=== PATIENT | female | born 1955 | race Caucasian/White ===

== ENCOUNTER 2018-01-20 01:40 | Outpatient (CLI) | payer MEDICAID, SELFPAY ==
--- NOTE | 2018-01-20 12:59 | DI.RAD_ITS ---
SYMPTOM/DIAGNOSIS: COUGH, R05 PA AND LATERAL CHEST: Comparison is made with 04/07/15. Heart size and pulmonary vasculature are within normal limits. No focal consolidating infiltrates are seen. No effusions or pneumothoraces are identified. There are mild degenerative changes seen in the spine. IMPRESSION: No acute pulmonary process.
== END 2018-01-20 02:00 ==
PROVIDERS: PCP Nurse Practitioner Family; Visit Provider Nurse Practitioner Family
DX: R05 Cough (principal)
CPT/HCPCS: 71046

== ENCOUNTER 2018-03-14 09:55 | Outpatient (REF) | payer MEDICAID, SELFPAY ==
[2018-03-16 13:17] LABS: Helicobacter pylori Ag, Feces Positive (NEGAT)
== END 2018-03-14 10:15 ==
LOC: NCHCN 09:55
PROVIDERS: PCP Nurse Practitioner Family; Visit Provider Nurse Practitioner Family
DX: Z87.19 Personal history of other diseases of the digestive system (principal)
CPT/HCPCS: 87338

== ENCOUNTER 2018-05-03 16:38 | Outpatient (REF) | payer MEDICAID, SELFPAY ==
[2018-05-11 14:05] LABS: Helicobacter pylori Ag, Feces Negative (NEGAT)
== END 2018-05-03 16:58 ==
LOC: NCHCN 16:38
PROVIDERS: PCP Nurse Practitioner Family; Visit Provider Nurse Practitioner Family
DX: B96.81 Helicobacter pylori [H. pylori] as the cause of diseases classified elsewhere (principal)
CPT/HCPCS: 87338

== ENCOUNTER 2018-06-30 07:34 | Outpatient (REF) | payer MEDICAID, SELFPAY ==
[2018-06-30 13:07] LABS: ALT 24 U/L (12-78); AST 18 U/L (15-37); Albumin 3.7 g/dL (3.4-5.0); Alkaline Phosphatase 157 U/L (46-116); BUN 7 mg/dL (7-18); Bilirubin, Total 0.4 mg/dL (0.2-1.0); CREATININE 0.96 mg/dL (0.55-1.02); Chloride 99 mmol/L (98-107); Cholesterol 183 mg/dL (50-200); Glucose 121 mg/dL (70-100); HDL Cholesterol 48 mg/dL (40-60); LDL CHOLESTEROL 113 mg/dL (<100); Potassium 4.8 mmol/L (3.5-5.1); Sodium 138 mmol/L (136-145); Total Protein 7.6 g/dL (6.4-8.2); Triglyceride 100 mg/dL (30-150)
== END 2018-06-30 07:54 ==
LOC: NCHCN 07:34
PROVIDERS: PCP Nurse Practitioner Family; Visit Provider Nurse Practitioner Family
DX: I10 Essential (primary) hypertension (principal); E78.5 Hyperlipidemia, unspecified
CPT/HCPCS: 80053; 80061; 83721

== ENCOUNTER 2018-08-25 21:16 | Emergency (ER) | payer MEDICAID, SELFPAY ==
[2018-08-25 21:19] VITALS: BP 149/94; PULSE 69; RESP 15; TEMP 36.6; O2SAT 95
--- NOTE | 2018-08-25 21:40 | DI.RAD_ITS ---
SYMPTOM/DIAGNOSIS: TRAUMA, ROTATIONAL INJURY, PAIN RIGHT FOOT: Three views. No acute or healing fracture or dislocation is present. There is soft tissue swelling of the foot. No radiopaque foreign bodies are present. IMPRESSION: No evidence of an acute or healing fracture or dislocation. RIGHT ANKLE: Three views. No acute fracture or dislocation is identified. There is a small calcaneal spur present. There is a tiny, well corticated osseous fragment seen at the talonavicular joint. A small spur is seen at the dorsal aspect of the distal talus. No radiopaque foreign bodies are seen in the soft tissues. IMPRESSION: No acute or healing fracture or dislocation.
--- NOTE | 2018-08-25 21:50 | ED.GENADUL_ITS ---
Discharge Plan Disposition Patient Disposition: HOME Condition: Good Discharge Details Chief Complaint: Orthopedic Clinical Impression: Ankle sprain, Ankle impingement syndrome Primary Care Provider: Concepción Smith ED Provider: Li Melgar Home Meds and New Rx's Prescriptions: Continued lisinopril [Prinivil] 20 MG tablet 20 mg PO DAILY Qty: 30 RF: 11 oxybutynin chloride 5 MG tablet 5 mg PO TID Qty: 90 RF: 5 esomeprazole magnesium 20 MG capsule,delayed release(DR/EC) 40 mg PO DAILY Qty: 90 RF: 2 epinephrine [EpiPen] 0.3 MG/0.3 ML auto-injector 0.3 mg IM PRN PRN (Reason: Anaphylaxis) RF: 0 nitroglycerin 0.4 MG tablet, sublingual 0.4 mg Sublingual DIRECTED Qty: 25 RF: 0 albuterol sulfate [Proventil HFA] 6.7 GM HFA aerosol inhaler 2 puff Inhalation Q4H PRN PRNQty: 1 RF: 0 Discharge Instructions Instructions: Ankle Sprain (ED) Additional Instructions: Encourage rest, ice, elevation. Tylenol and/or ibuprofen as needed for discomfort. Please continue with ankle brace while pain persists. Please follow-up with primary care in the next 2 weeks for reevaluation. Please call physical therapy to schedule appointment, referral is attached. If you develop fever/chills, redness of the skin, increased pain or other new/worsening symptoms please seek care urgently once again Stand Alone Forms: Physical Therapy Referral Referrals: Concepción Smith [Primary Care Provider] - Medical Decision Making Patient is a 63 year old female, accompanied by , with c/c of right ankle and foot pain x 2 weeks. States it began after rolling it while walking on a pallet. Pain has remained the same since. Was seen by PCP yesterday and advised likely sprain. Patient states she rolls her ankles frequently. No fevers/chills, she appears nontoxic, no erythema/warmth or findings suggestive of infectious source. Posterior calf normal, does not appear consistent with DVT. No pain over the proximal 5th metatarsal Pain maximal over drew lateral malleolus. Achilles intact without tenderness. Plan to obtain XR to evaluate for bony abnormality. Patient ambulated into department without assistance. Foot XR reviewed by radiologist: FINDINGS: Bones/joints: Bone mineralization is age-appropriate. There is no evidence of fracture. No evidence of dislocation. There is a noninflamed plantar enthesophyte. The joint spaces are adequately preserved; no significant degenerative narrowing and no bony erosion seen. Soft tissues: No radiopaque foreign body present. There is soft tissue swelling present. IMPRESSION: 1. No acute osseous abnormality. 2. Soft tissue swelling only. Ankle XR: FINDINGS: Bones/joints: Bone mineralization is age-appropriate. There is no evidence of fracture. No evidence of dislocation. There is a noninflamed plantar enthesophyte. The joint spaces are adequately preserved; no significant degenerative narrowing and no bony erosion seen. There is an osteophyte seen at the dorsal aspect of the tarsal navicular region consider anterior ankle impingement syndrome. Soft tissues: No radiopaque foreign body present. There is moderate to severe soft tissue swelling present. IMPRESSION: 1. No acute osseous abnormality. 2. Soft tissue swelling only. 3. 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 She feels that this finding may be source of some of her chronic ankle pain. Also advised that her acute injury with associated swelling is likely contributing. Place in lace up brace. Advised PT. Encouraged close f/u with PCP. We discussed new/wrosening symptoms and when to seek care urgently once again. All questions and concerns were addressed, she is in [facility] this plan. HPI General Mode of arrival: ambulatory . Date/Time Provider Initiated Documentation: 08/25/18 21:31 . Limitations to Documentation: no limitations . Information obtained by: patient, family (accompanied by ) and RN notes reviewed . History of Present Illness 63 year old F presents to the emergency department with the chief complaint of right ankle and foot pain, described as severe, with intensity rated at 9. Quality is described as aching, and is localized to the right and lower extremity. Patient reports no radiation. Patient started experiencing this week(s) (2) Immobilization improves symptom(s), Movement worsens symptoms . Patient notes no other symptoms.; denies chest pain, diaphoresis, fever/chills, malaise, rash and shortness of breath. Patient did receive the following treatments prior to arrival, none Related Data Home Medications Medication Instructions Recorded Confirmed epinephrine [EpiPen] 0.3 mg IM PRN PRN 03/23/13 10/14/17 nitroglycerin 0.4 mg SUBLINGUAL DIRECTED #25 04/08/15 11/27/16 tab.subl albuterol sulfate [Proventil HFA] 2 puff INHALATION Q4H PRN PRN #1 07/07/15 11/27/16 [email or web address] lisinopril [Prinivil] 20 mg PO DAILY #30 tab-cap 02/25/16 esomeprazole magnesium 40 mg PO DAILY #90 tab-cap 02/26/16 oxybutynin chloride 5 mg PO TID #90 tab-cap 02/26/16 Previous Rx's Medication Instructions Recorded nitroglycerin 0.4 mg SUBLINGUAL DIRECTED #25 04/08/15 tab.subl albuterol sulfate [Proventil HFA] 2 puff INHALATION Q4H PRN PRN #1 07/07/15 [email or web address] Allergies Allergy/AdvReac Type Severity Reaction Status Date / Time Penicillins Allergy Intermediate seizure Unverified 08/25/18 21:28 codeine Allergy Mild Hives Unverified 08/25/18 21:28 diphenhydramine HCl Allergy Mild Swelling/Ed Unverified 08/25/18 21:28 [From Benadryl] rosa levofloxacin Allergy Mild Skin Rash Unverified 08/25/18 21:28 diclofenac AdvReac Intermediate Wheezing, Unverified 08/25/18 21:28 stomach upset and brusing cantalope Allergy Intermediate can't Uncoded 08/25/18 21:28 breath chicken dander/feathers Allergy Intermediate can't Uncoded 08/25/18 21:28 breath mckenna Allergy Intermediate sob Uncoded 08/25/18 21:28 General Stated Complaint: Orthopedic DERRICK: 4 Review of Systems Constitutional Reports as per HPI, Denies chills, Denies fever(s), Denies headache(s) and Denies weakness ENT Denies headache(s) Cardiovascular Reports as per HPI Respiratory Reports as per HPI and Denies cough Musculoskeletal Reports as per HPI and Denies tingling Integumentary/Breasts Reports as per HPI, Denies rash and Denies wounds Neurologic Reports as per HPI, Denies headache(s), Denies tingling, Denies paresthesias and Denies weakness FOR[facility] Surgical History Appendectomy HYSTERECTOMY KNEE SURGERY LEFT HEART CATH (05/08/12) Left wrist surgery (04/14/16) Open Carpal Tunnel release Tonsillectomy and adenoidectomy Family History Mother Personal history of malignant neoplasm Stroke Father Diabetes Personal history of malignant neoplasm Sister Diabetes Personal history of malignant neoplasm Heart disease Hyperlipidemia Stroke Sister Diabetes Brother Diabetes Alcohol abuse Personal history of malignant neoplasm Hyperlipidemia Stroke Brother No problems noted. Social History Smoking/Tobacco Use Status: Current every day Alcohol Intake: never Drug use: Never Substance use type: does not use Do you feel safe in your relationship?: Yes Exam Const General: cooperative, healthy appearing, comfortable, no acute distress, well developed and well groomed Nutritional Appearance: well nourished and overweight Orientation: alert and awake Resp Effort & Inspection: normal respiratory effort, able to speak in complete sentences and no respiratory distress Cardio Rate: regular rate Rhythm: regular rhythm Skin General skin exam: no rashes or lesions noted Lesions: no lesions Rashes: no rashes Trauma: no lacerations or abrasions Neuro General: alert and awake Cognition: normal cognition Speech: speech normal Gait: antalgic Motor: muscle tone normal throughout Sensory Exam: no sensory deficits noted Extrem Right lower extremity: full ROM (pain with dorsiflexion and plantarflexion), normal capillary refill, edema Details: non-pitting (bilateral LE, R>L), knee Details: normal to inspection (s/p TKA, incision healed well) and normal ROM; no tenderness and no swelling, lower leg Details: normal to inspection and non- pitting edema; no erythema, no tenderness, no localized swelling, no palpable cords, no pitting edema, no abrasions, no lacerations, no ecchymosis, no deformity and no unusual warmth, ankle Details: tenderness Location: of the lateral malleolus, of the anterior talofibular ligament and anterolaterally; not of the medial malleolus and not of the achilles tendon, swelling Details: diffusely, edema Details: non-pitting and normal ROM; no unusual warmth, no abrasions, no lacerations, no ecchymosis, no crepitus and achilles tendon exam normal and foot Details: normal capillary refill, tenderness Location: of the dorsal foot (diffuse, worse over the 3&4 metatarsal), toes with normal ROM, edema Location: of the dorsal foot, vascular exam Details: dorsalis pedis pulse present and motor-sensory exam Details: light-touch normal; no unusual warmth, no abrasion, no laceration, no ecchymosis and no puncture wound Psych Appearance: grossly normal and well kempt Mental Status: mental status grossly normal Speech and Movement: speech and movement normal Course Vital Signs Temperature 36.6 C 08/25/18 21:19 Pulse 69 08/25/18 21:19 Respiratory Rate 15 08/25/18 21:19 Blood Pressure 149/94 H 08/25/18 21:19 Pulse Oximetry 95 08/25/18 21:19 Temperature 36.6 C 08/25/18 21:19 Temperature Source Skin 08/25/18 21:19 Pulse 69 08/25/18 21:19 Respiratory Rate 15 08/25/18 21:19 Respiratory Effort Non-Labored 08/25/18 21:23 Blood Pressure 149/94 H 08/25/18 21:19 Pulse Oximetry 95 08/25/18 21:19 Oxygen Delivery Method Room Air 08/25/18 21:19 Oxygen Flow Rate 0 08/25/18 21:19 Pain Level 9 08/25/18 21:24 Comment 08/25/18 21:19
--- NOTE | 2018-08-25 22:10 | DI.VRAD_ITS ---
EXAM: XR Right Foot Complete EXAM DATE/TIME: 08/25/2018 9:41 PM CLINICAL HISTORY: 63 years old, female; Other: Trauma 2 weeks ago TECHNIQUE: Imaging protocol: XR Right foot. Views: 3 or more views. COMPARISON: CR RIGHT FOOT COMPLETE 05/09/2017 1:05 PM FINDINGS: Bones/joints: Bone mineralization is age-appropriate. There is no evidence of fracture. No evidence of dislocation. There is a noninflamed plantar enthesophyte. The joint spaces are adequately preserved; no significant degenerative narrowing and no bony erosion seen. Soft tissues: No radiopaque foreign body present. There is soft tissue swelling present. IMPRESSION: 1. No acute osseous abnormality. 2. Soft tissue swelling only. Dictated and Authenticated by: Deandre Wu MD. Ordering:ESTELLE Jefferson MD
--- NOTE | 2018-08-25 22:26 | DI.VRAD_ITS ---
EXAM: XR Right Ankle EXAM DATE/TIME: 08/25/2018 9:41 PM CLINICAL HISTORY: 63 years old, female; Other: Rotational injury 2 weeks ago TECHNIQUE: Imaging protocol: XR Right ankle. Views: 3 or more views. COMPARISON: CR RIGHT FOOT COMPLETE 05/09/2017 1:05 PM FINDINGS: Bones/joints: Bone mineralization is age-appropriate. There is no evidence of fracture. No evidence of dislocation. There is a noninflamed plantar enthesophyte. The joint spaces are adequately preserved; no significant degenerative narrowing and no bony erosion seen. There is an osteophyte seen at the dorsal aspect of the tarsal navicular region consider anterior ankle impingement syndrome. Soft tissues: No radiopaque foreign body present. There is moderate to severe soft tissue swelling present. IMPRESSION: 1. No acute osseous abnormality. 2. Soft tissue swelling only. 3. 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 Ordering:ESTELLE Jefferson MD
[2018-08-25 22:40] VITALS: BP 149/94; PULSE 69; RESP 15; TEMP 36.6; O2SAT 95
== END 2018-08-25 22:42 | disposition home or self-care (01) ==
PROVIDERS: Emergency Provider Physician Assistant; PCP Nurse Practitioner Family
DX: S93.401A Sprain of unspecified ligament of right ankle, initial encounter (principal); M25.871 Other specified joint disorders, right ankle and foot; X50.9XXA Other and unspecified overexertion or strenuous movements or postures, initial encounter
CPT/HCPCS: 29515; 99284; 73610; 73630; 99282; L1902

== ENCOUNTER 2019-03-02 13:51 | Outpatient (REF) | payer MEDICAID, SELFPAY ==
[2019-03-02 18:53] LABS: HCT 51.2 % (36.0-46.0); HGB 16.8 g/dL (12.0-15.5); Mean Corp. HGB Concentration 32.8 g/dL (32.0-36.0); Mean Corpuscular Hemoglobin 29.7 pg (27.0-33.0); Mean Corpuscular Volume 90.5 fL (80-95); Mean Platelet Volume 10.5 fL (8.0-11.0); Platelet Count 361 x1000/uL (130-400); RBC 5.66 m/cumm (4.00-5.20); RBC Distribution Width 16.3 % (11.7-14.6); White Blood Cell Count 9.14 k/cumm (4.4-10.8)
[2019-03-02 19:10] LABS: ALT 18 U/L (14-59); AST 17 U/L (15-37); Albumin 3.5 g/dL (3.4-5.0); Alkaline Phosphatase 145 U/L (46-116); BUN 5 mg/dL (7-18); Bilirubin, Total 0.4 mg/dL (0.2-1.0); CREATININE 0.82 mg/dL (0.55-1.02); Calcium 8.7 mg/dL (8.5-10.1); Chloride 98 mmol/L (98-107); Glucose 113 mg/dL (74-106); Potassium 5.3 mmol/L (3.5-5.1); Sodium 138 mmol/L (136-145); Total Protein 7.2 g/dL (6.4-8.2)
[2019-03-02 19:11] LABS: Hemoglobin A1C 6.2 % (3.8-5.6)
== END 2019-03-02 14:11 ==
LOC: NCHCN 13:51
PROVIDERS: PCP Nurse Practitioner Family; Visit Provider Nurse Practitioner Family
DX: I10 Essential (primary) hypertension (principal); K21.9 Gastro-esophageal reflux disease without esophagitis; G43.709 Chronic migraine without aura, not intractable, without status migrainosus; Z87.19 Personal history of other diseases of the digestive system
CPT/HCPCS: 80053; 85027; 83036

== ENCOUNTER 2019-03-09 03:42 | Outpatient (CLI) | payer MEDICAID, SELFPAY | END 2019-03-09 04:02 | PROVIDERS: PCP Nurse Practitioner Family; Visit Provider Nurse Practitioner Adult Health | DX: R55 Syncope and collapse (principal) ==

== ENCOUNTER 2019-03-16 01:32 | Outpatient (CLI) | payer MEDICAID, SELFPAY ==
--- NOTE | 2019-03-16 09:50 | DI.MRI_ITS ---
EXAM: MR BRAIN WO CLINICAL HISTORY: CHRONIC MIGRAINE G43.709. TECHNIQUE: Multiplanar multisequence MRI was performed. COMPARISON: No exams were available for comparison FINDINGS: MR examination of brain was performed according to the usual protocol. Incidental note is made of an 8 millimeter left parafalcine frontal soft tissue signal mass suggesting small meningioma. There ar e mild scattered periventricular increased signal foci consistent with slight microvascular ischemic changes. No other signal abnormality identified in the brain. The orbital and temporal bone structu res appear intact. Pituitary is unremarkable. Susceptibility weighted imaging shows no evidence of hemorrhage. Diffusion-weighted imaging shows no evidence of infarction. There is normal flow void i n the [place] vasculature. IMPRESSION: 8 millimeter falcine soft tissue nodule left frontal, likely meningioma, correlation with post cont rast MRI recommended.
== END 2019-03-16 01:52 ==
PROVIDERS: PCP Nurse Practitioner Family; Visit Provider Nurse Practitioner Family
DX: G43.709 Chronic migraine without aura, not intractable, without status migrainosus (principal); D32.0 Benign neoplasm of cerebral meninges
CPT/HCPCS: 70551

== ENCOUNTER 2019-03-16 02:18 | Outpatient (CLI) | payer MEDICAID, SELFPAY ==
--- NOTE | 2019-03-19 16:04 | PDOC.EEG ---
Neurology EEG EEG: [facility] Department of Neurology LONG-TERM AMBULATORY EEG REPORT Date of Recordin03/16/19 at 15:02:24 to 03/17/19 at 15:44:13 Interpreting Physician: Dr. Ama Luis PCP/Referring Provider: Concepción Smith NP; Aspen Mejia NP Reason for study: Ms. Redding is a 64 year-old woman with recent daily episodes of dizziness followed by LOC and falling associated with headache. Current Medications: Home Medications Medication Instructions Recorded Confirmed Type nitroglycerin 0.4 mg SUBLINGUAL DIRECTED #25 04/08/15 03/06/19 Rx tab.subl albuterol sulfate [Proventil HFA] 2 puff INHALATION Q4H PRN PRN #1 07/07/15 03/06/19 Rx hfa.aer.ad esomeprazole magnesium 40 mg PO DAILY #90 tab-cap 02/26/16 03/06/19 History lisinopril 20 mg tablet 40 mg PO DAILY #30 tab-cap 03/05/19 03/06/19 History prochlorperazine maleate 5 mg 5 mg PO TID PRN #30 tab 03/06/19 03/06/19 Rx tablet METHODS: An 18-channel digitized electroencephalogram was recorded in the ambulatory setting with video. The 10/20 international system of electrode placement was used and bipolar and referential electrode montages were recorded. In addition to EEG the patient was monitored for EKG and by video. Activation procedures of photic stimulation and hyperventilation were performed if applicable. The duration of the recording was ~25 hours. DESCRIPTION OF EEG: Waking background activity: During maximal wakefulness a 9-Hz posterior background rhythm was present which was well-modulated, symmetrical, reactive to eye opening, and of moderate voltage. Faster frequencies were present in the bilateral anterior head regions. There was a normal anterior-posterior voltage gradient. There was excessive diffuse beta activity throughout the recording. Drowsy and sleeping background activity: During drowsiness, there was attenuation of the posterior dominant background rhythm and vertex waves. Normal stage II and III sleep was present with symmetrical sleep spindles, K-complexes, and vertex waves with slowing of the background rhythm to delta/theta frequencies. REM sleep manifested by rapid lateral eye movements and faster background rhythms was recorded. Arousal was unremarkable. Interictal abnormalities: none. Ictal findings: Event #1 on 03/16/19 at 16:45:50 -Clinical manifestations: Bad headache and dizzy while picking up trash from dog -EEG findings: No abnormal or epileptiform changes. EKG was also unremarkable. Event #2 on 03/16/19 at 21:39:43 -Clinical manifestations: No recorded symptoms. -EEG findings: No abnormal or epileptiform changes. EKG was also unremarkable. Event #3 on 03/17/19 at 09:36:53 -Clinical manifestations: Lightheaded and dizzy while sitting having coffee and talking -EEG findings: No abnormal or epileptiform changes. EKG was also unremarkable. Event #4 on 03/17/19 at 14:17:40 -Clinical manifestations: Dizzy, lightheaded, blurry vision, headache, while riding in a car -EEG findings: No abnormal or epileptiform changes. EKG was also unremarkable. Activating Procedures: Photic stimulation was performed which produced a symmetrical posterior driving response at various flash frequencies. Hyperventilation was not performed. EKG: EKG revealed normal sinus rhythm. INTERPRETATION: This long-term EEG is normal during the awake and sleep states as well as during the activation procedures. 4 events were captured, none with reported loss of consciousness. PRIOR EEG: none CLINICAL CORRELATION: No focal regions of cerebral dysfunction or epileptiform activity was present. Four events were captured, however, these were not 'typical' events by description. Epilepsy remains a clinical diagnosis and a normal EEG does not rule out epilepsy. Clinical correlation is advised. Ama Luis MD
== END 2019-03-16 02:38 ==
PROVIDERS: PCP Nurse Practitioner Family; Visit Provider Nurse Practitioner Adult Health
DX: R55 Syncope and collapse (principal)
CPT/HCPCS: 95714

== ENCOUNTER → 2019-04-03 01:53 | Outpatient (CLI) | payer MEDICAID, SELFPAY ==
[2019-04-03] MEDS: Normal Saline Flush 10 ML SYR IVP (09:45)
[2019-04-03] MEDS: Gadoterate meglumine 20 ML VIAL IVP (09:46)
--- NOTE | 2019-04-03 10:10 | DI.MRI_ITS ---
EXAM: MR BRAIN W CLINICAL HISTORY: PROBABLE MENINGIOMA SEEN ON NON-CONTRAST MRI, R90.89 ABNORMAL FINDINGS. TECHNIQUE: Multiplanar multisequence MRI was performed. COMPARISON: MR BRAIN WO from 03/16/2019 FINDINGS: There is an enhancing mass in the left parafalcine region anteriorly. It measures 0.7 x 0.5 x 0.5 cm . Its appearance is suggestive of a small meningioma. No other enhancing intracranial lesion is nicholas ntified. IMPRESSION: 0.7 x 0.5 x 0.5 cm enhancing left parafalcine mass. This most likely represents a meningioma.
== END ==
PROVIDERS: PCP Nurse Practitioner Family; Visit Provider Nurse Practitioner Adult Health
DX: D32.9 Benign neoplasm of meninges, unspecified (principal); R90.89 Other abnormal findings on diagnostic imaging of central nervous system
CPT/HCPCS: 70552

== ENCOUNTER 2019-11-06 10:38 | Outpatient (CLI) | payer MEDICAID, SELFPAY ==
--- NOTE | 2019-11-06 12:12 | DI.RAD_ITS ---
EXAM: XR LUMBAR SPINE COMPLETE CLINICAL HISTORY: SPINAL STENOSIS, M48.00, CHRONIC INCREASING BACK PAIN. TECHNIQUE: 2D digital imaging was performed. COMPARISON: No exams were available for comparison FINDINGS: There are 5 lumbar type vertebral bodies. There is normal alignment. No spondylolysis or spondyloli sthesis. Degenerative changes of the facets at L5-S1 is noted. There is disc space narrowing at L2- L3. Endplate osteophytes are seen at multiple levels of the lumbar spine. No acute fracture or subl uxation. Vascular calcifications are present. IMPRESSION: Degenerative changes in the lumbar spine. DATA REPOSITORY: RADIATION DOSE DELIVERED:
== END 2019-11-06 10:58 ==
PROVIDERS: PCP Nurse Practitioner Family; Visit Provider Physician Assistant
DX: M51.36 Other intervertebral disc degeneration, lumbar region (principal); M48.061 Spinal stenosis, lumbar region without neurogenic claudication
CPT/HCPCS: 72110

== ENCOUNTER 2020-01-04 16:23 | Observation (INO) | payer MEDICARE, MEDICAID, SELFPAY ==
[2020-01-04] VITALS (31 sets, daily range): BP systolic 115–161; BP diastolic 51–102; PULSE 53–71; RESP 14–21; TEMP 36.1–36.5; O2SAT 85–99
--- NOTE | 2020-01-04 16:30 | DI.CT_ITS ---
EXAM: CT BRAIN NECK CTA CLINICAL HISTORY: hx of meningioma, headache, dizziness. TECHNIQUE: Imaging Protocol: Axial CT angiography was performed with multi-slice acquisition and mu lti-planar and/or 3D reconstructions. CONTRAST MATERIAL: Intravenous: Omnipaque 350 Contrast volume:90ml COMPARISON: CT CHEST WITHOUT CONTRAST from 05/04/2012 US LEFT BREAST ULTRASOUND from 01/26/2013 MR MRI - BRAIN WO CONTRAST from 03/01/2013 CT ABD PELVIS WITH CONTRAST from 04/11/2017 MR MR BRAIN WO from 03/16/2019 MR MR BRAIN W from 04/03/2019 FINDINGS: CT Head W/O: Ventricles and Extra axial spaces: Normal in size and morphology for the patient's age. Stable small nodule adjacent to the falx in the left anterior frontal region. Hemorrhage: None. Cerebral parenchyma: Normal. Midline shift: None. Brainstem/Cerebellum: Normal. Calvarium: Normal. Visualized Paranasal sinuses/Mastoids: Clear. CTA Brain W: Internal Carotid Arteries: Petrous: Normal. Cavernous: Normal. Cerebral: Normal. Middle Cerebral Arteries: Right: No aneurysm, occlusion or significant stenosis. Left: No aneurysm, occlusion or significant stenosis. Anterior Cerebral Arteries: Right: No aneurysm, occlusion or significant stenosis. Left: No aneurysm, occlusion or significant stenosis. Posterior cerebral Arteries: Right: No aneurysm, occlusion or significant stenosis. Left: No aneurysm, occlusion or significant stenosis. Vertebral Arteries: Right: No aneurysm, occlusion or significant stenosis. Left: No aneurysm, occlusion or significant stenosis. Basilar Artery: No aneurysm, occlusion or significant stenosis. CTA Neck W: Common Carotid: Right: No aneurysm, occlusion or significant stenosis. Left: No aneurysm, occlusion or significant stenosis. External Carotid: Right: No aneurysm, occlusion or significant stenosis. Left: No aneurysm, occlusion or significant stenosis. Internal Carotid: Right: No aneurysm, occlusion or significant stenosis. Left: No aneurysm, occlusion or significant stenosis. Vertebral Artery: Right: No aneurysm, occlusion or significant stenosis. Left: No aneurysm, occlusion or significant stenosis. Soft Tissues: Nodule in the right lobe of the thyroid appears unchanged from [address] Degenerative changes are seen in the cervical spine. IMPRESSION: 1. Normal CTA examination of the [place]. 2. Stable small left anterior frontal parafalcine meningioma. No acute intracranial abnormality. 3. Normal CTA examination of the neck. RADIATION DOSE DELIVERED: 1,080.68mGy.cm Total DLP DATA REPOSITORY: All CT scans at this facility are submitted to the National Radiology Data Registry (NRDR) Dose Index Registry (DIR) with the [employer] ([employer]). RADIATION OPTIMIZATION: All CT scans at this facility use at least one of these dose optimization te chniques: automated exposure control; mA and/or kV adjustment per patient size (includes targeted exa ms where dose is matched to clinical indication); or iterative reconstruction.
--- NOTE | 2020-01-04 16:30 | RT.EKG_ITS ---
APPROVED REPORT Exam: Resting ECG Patient Location: E HR:57 bpm ECG Measurements Heart Rate 57 AXIS VT 182 P 54 QRSd 105 QRS 67 QT 446 T 82 QTc 435 Conclusion Sinus bradycardia, rate 57. Inverted T aVL
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
[2020-01-04] MEDS: Normal Saline 1,000 ML 1000 ML IV (17:13)
[2020-01-04] MEDS: Ondansetron 4 MG/2 ML VIAL IVP (17:13)
[2020-01-04 17:19] LABS: Bilirubin Negative (Negative); Blood Negative (Negative); Clarity Cloudy (Clear); Glucose Negative (Negative); Ketones Negative (Negative); Leukocyte Esterase Trace (Negative); Nitrite Negative (Negative); Urobilinogen 0.2 EU/dL (Up TO 0.2); pH 5.5 (5-8)
[2020-01-04 17:25] LABS: Abs Immature Grans 0.03 10^3/uL (0.0-0.06); Absolute Basophil Count 0.09 10^3/uL (0.0-0.2); Absolute Eosinophil Count 0.18 10^3/uL (0.0-0.7); Absolute Lymphocyte Count 3.15 10^3/uL (1.2-3.4); Absolute Monocyte Count 0.97 10^3/uL (0.1-0.8); Basophils % 0.8; Eosinophils % 1.6; HCT 46.7 % (36.0-46.0); Immature Grans % 0.3; Lymphocytes % 27.9; MCH 29.3 pg (27.0-33.0); MCHC 34.3 % (32.0-36.0); MCV 85.4 fL (80-95); MPV 9.8 fL (8.0-11.0); Monocytes % 8.6; Neutrophils % 60.8; Nucleated RBC 0 %; Platelet Count 350 10^3/uL (130-400); RBC 5.47 10^6/uL (3.93-5.22); RDW 12.9 % (11.7-14.6); RDW-SD 40.2 fL
[2020-01-04 17:26] LABS: Absolute Neutrophil Count 6.87 10^3/uL (1.2-6.7)
[2020-01-04 17:36] LABS: Bacteria Many HPF (Negative); Epithelial Cells Many HPF (Negative)
[2020-01-04 17:37] LABS: C & S Indicated? No/Sq. Contamination
[2020-01-04 17:43] LABS: ALT 16 U/L (14-59); AST 16 U/L (15-37); Albumin 3.6 g/dL (3.4-5.0); Alkaline Phosphatase 140 U/L (46-116); Anion Gap 3.7 mmol/L (3-11); BUN 18 mg/dL (7-18); Bilirubin, Total 0.3 mg/dL (0.2-1.0); CO2 32.3 mmol/L (21.0-32.0); CREATININE 1.27 mg/dL (0.55-1.02); Calcium 8.6 mg/dL (8.5-10.1); Chloride 88 mmol/L (98-107); Estimated GFR 42.36 (mL/min/1.73m2); Glucose 141 mg/dL (74-106); Potassium 3.8 mmol/L (3.5-5.1); Total Protein 7.8 g/dL (6.4-8.2)
[2020-01-04 17:46] LABS: Sodium 124 mmol/L (136-145)
[2020-01-04] MEDS: Omnipaque 350 MG/ML 100 ML BTL IJ (18:28)
[2020-01-04] MEDS: Normal Saline - Diluent 50 ML VIAL IV (18:29)
--- NOTE | 2020-01-04 18:57 | DI.VRAD_ITS ---
PROCEDURE INFORMATION: Exam: CT Angiography Head With Contrast Exam date and time: 01/04/2020 6:12 PM Age: 64 years old Clinical indication: Dizziness and giddiness and headache; Patient HX: HX of meningioma, headache, dizziness TECHNIQUE: Imaging protocol: Computed tomography angiography of the head with intravenous contrast. 3D rendering (Not supervised by radiologist): MIP and/or 3D reconstructed images were created by the technologist. COMPARISON: HEAD^MRA COW 03/01/2013 1:40 PM FINDINGS: ANTERIOR CIRCULATION: Right internal carotid artery: Unremarkable. Intracranial segment is patent with no significant stenosis. No aneurysm. Right middle cerebral artery: Unremarkable. No occlusion or significant stenosis. No aneurysm. Right anterior cerebral artery: Unremarkable. No occlusion or significant stenosis. No aneurysm. Left internal carotid artery: Unremarkable. Intracranial segment is patent with no significant stenosis. No aneurysm. Left middle cerebral artery: Unremarkable. No occlusion or significant stenosis. No aneurysm. Left anterior cerebral artery: Unremarkable. No occlusion or significant stenosis. No aneurysm. POSTERIOR CIRCULATION: Right vertebral artery: Unremarkable. No occlusion or significant stenosis. No aneurysm. Left vertebral artery: Unremarkable. No occlusion or significant stenosis. No aneurysm. Basilar artery: Unremarkable. No occlusion or significant stenosis. No aneurysm. Right posterior cerebral artery: Unremarkable. No occlusion or significant stenosis. No aneurysm. Left posterior cerebral artery: Unremarkable. No occlusion or significant stenosis. No aneurysm. Brain: An unchanged 7 x 5 x 5 mm left parafalcine mass is again seen, most consistent with a benign meningioma. The brain is otherwise normal in appearance. No evidence for acute cortical infarct. No midline shift. Cerebral ventricles: No hydrocephalus. Bones/joints: Unremarkable. No acute fracture. Soft tissues: Unremarkable. IMPRESSION: 1. No large vessel stenosis or occlusion within the intracranial vessels. 2. No evidence for acute intracranial process. No intracranial hemorrhage or evidence for acute cortical infarct. 3. Stable 7 x 5 x 5 mm left parafalcine mass. PROCEDURE INFORMATION: Exam: CT Angiography Neck With Contrast Exam date and time: 01/04/2020 6:12 PM Age: 64 years old Clinical indication: Dizziness and giddiness and headache; Patient HX: HX of meningioma, headache, dizziness TECHNIQUE: Imaging protocol: Computed tomography angiography of the neck with intravenous contrast. 3D rendering (Not supervised by radiologist): MIP and/or 3D reconstructed images were created by the technologist. COMPARISON: HEAD^MRA COW 03/01/2013 1:40 PM FINDINGS: Right common carotid artery: No stenosis. No dissection or occlusion. Right internal carotid artery: No stenosis of the extracranial segment. No dissection or occlusion. Right external carotid artery: No occlusion or stenosis of the origin. Right vertebral artery: No stenosis. No dissection or occlusion. Left common carotid artery: No stenosis. No dissection or occlusion. Left internal carotid artery: No stenosis of the extracranial segment. No dissection or occlusion. Left external carotid artery: No occlusion or stenosis of the origin. Left vertebral artery: No stenosis. No dissection or occlusion. Thyroid: A 1.6 x 1.4 cm nodule is seen within the right lobe of the thyroid gland. The thyroid gland is otherwise normal in appearance. Bones/joints: No acute fracture. Soft tissues: Normal. No significant soft tissue swelling. Lungs: The lung apices are well aerated. IMPRESSION: 1. No stenosis or occlusion within the extracranial vessels. 2. 1.6 x 1.4 cm nodule within the right lobe of the thyroid gland. This warrants further evaluation with an outpatient, nonemergent thyroid ultrasound. REFERENCES: NASCET CRITERIA. The degree of internal carotid artery stenosis is based on NASCET criteria. Normal is no stenosis. Mild is less than 50% stenosis. Moderate is 50-69% stenosis. Severe is 70% to 99% stenosis. Total occlusion is no detectable patent lumen. Dictated and Authenticated by: Kimberlyn Roman MD. Ordering:JHONNY Hurtado MD
[2020-01-04 19:10] LABS: Anion Gap 2.8 mmol/L (3-11); BUN 17 mg/dL (7-18); CO2 31.2 mmol/L (21.0-32.0); CREATININE 1.16 mg/dL (0.55-1.02); Calcium 8.3 mg/dL (8.5-10.1); Chloride 89 mmol/L (98-107); Estimated GFR 47.03 (mL/min/1.73m2); Glucose 112 mg/dL (74-106); Potassium 4.3 mmol/L (3.5-5.1)
[2020-01-04] MEDS: Ketorolac 30 MG/ML VIAL IVP (19:11)
[2020-01-04] MEDS: Meclizine 25 MG TAB PO (19:12)
[2020-01-04 19:13] LABS: Sodium 123 mmol/L (136-145)
[2020-01-04 19:41] LABS: TSH (W/Ref FT4) 2.39 uIU/mL (0.36-3.74)
[2020-01-04] MEDS: Normal Saline 1,000 ML 250 ML IV (20:20)
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
[2020-01-04] MEDS: Gabapentin 300 MG CAP PO (23:51)
[2020-01-05 00:25] VITALS: RESP 17; TEMP 36.7
[2020-01-05 07:17] LABS: Anion Gap 1.4 mmol/L (3-11); BUN 16 mg/dL (7-18); CO2 30.6 mmol/L (21.0-32.0); CREATININE 1.16 mg/dL (0.55-1.02); Calcium 8.1 mg/dL (8.5-10.1); Chloride 93 mmol/L (98-107); Estimated GFR 47.03 (mL/min/1.73m2); Glucose 101 mg/dL (74-106); Potassium 4.7 mmol/L (3.5-5.1); Sodium 125 mmol/L (136-145)
[2020-01-05] MEDS: Lisinopril 20 MG TAB PO (08:54)
[2020-01-05] MEDS: Tolterodine 2 MG CAPCR 4 MG PO (08:54)
[2020-01-05 08:58] VITALS: BP 117/64; PULSE 67; RESP 18; TEMP 36.4; O2SAT 96
--- NOTE | 2020-01-05 09:10 | RESPIRATORY ---
Spoke with patient concerning the listing of sleep apnea in her chart. She stated she does have it but doesn't do anything for it including wearing oxygen or use a CPAP machine.
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
[2020-01-05 16:27] LABS: COVID-19 RT-PCR UVMMC Result Negative (Negative)
[2020-01-18 12:21] LABS: Osmolality, Urine 336 mOsm/kg (150-1150)
== END 2020-01-05 09:48 | disposition home or self-care (01) ==
LOC: ER 19:48 → MS 23:44
PROVIDERS: Admitting Provider Internal Medicine; Emergency Provider Registered Nurse Emergency; PCP Nurse Practitioner Family; Visit Provider Internal Medicine
DX: E87.1 Hypo-osmolality and hyponatremia (principal); R11.2 Nausea with vomiting, unspecified; E11.9 Type 2 diabetes mellitus without complications; K21.9 Gastro-esophageal reflux disease without esophagitis; F32.9 Major depressive disorder, single episode, unspecified; F43.10 Post-traumatic stress disorder, unspecified; D75.1 Secondary polycythemia; R20.0 Anesthesia of skin; E78.5 Hyperlipidemia, unspecified; M48.00 Spinal stenosis, site unspecified; E66.9 Obesity, unspecified; I10 Essential (primary) hypertension; M19.90 Unspecified osteoarthritis, unspecified site; G47.30 Sleep apnea, unspecified; D32.0 Benign neoplasm of cerebral meninges; G43.109 Migraine with aura, not intractable, without status migrainosus; F17.210 Nicotine dependence, cigarettes, uncomplicated
CPT/HCPCS: 36415; 70496; 70498; 80048; 80053; 83935; 93005; 96361; 96374; 96375; 99220; 99238; 99285; U0003; 81003; 81015; 84443; 85025; 93010; 99217; 99284; G0378; J1885; J2405; J3490

== ENCOUNTER 2020-01-07 14:21 | Outpatient (CLI) | payer MEDICARE, MEDICAID, SELFPAY ==
[2020-01-07 11:30] LABS: Anion Gap 7.6 mmol/L (3-11); CO2 31.4 mmol/L (21.0-32.0); CREATININE 0.92 mg/dL (0.55-1.02); Calcium 8.7 mg/dL (8.5-10.1); Chloride 96 mmol/L (98-107); Glucose 101 mg/dL (74-106); Potassium 4.8 mmol/L (3.5-5.1); Sodium 135 mmol/L (136-145)
[2020-01-07 12:10] LABS: BUN 8 mg/dL (7-18)
== END 2020-01-07 14:41 ==
PROVIDERS: PCP Nurse Practitioner Family; Visit Provider Internal Medicine
DX: E87.1 Hypo-osmolality and hyponatremia (principal)
CPT/HCPCS: 36415; 80048

== ENCOUNTER → 2020-02-11 07:39 | Outpatient (BNVA) | payer OTHER, MEDICAID, SELFPAY | PROVIDERS: PCP Nurse Practitioner Family; Referring Provider Nurse Practitioner Family; Visit Provider Nurse Practitioner Adult Health | DX: G43.109 Migraine with aura, not intractable, without status migrainosus (principal); G47.33 Obstructive sleep apnea (adult) (pediatric); D32.9 Benign neoplasm of meninges, unspecified; I10 Essential (primary) hypertension; F17.210 Nicotine dependence, cigarettes, uncomplicated | CPT/HCPCS: 99213; 99441 ==

== ENCOUNTER 2020-03-24 02:37 | Outpatient (CLI) | payer OTHER, MEDICAID, SELFPAY ==
[2020-03-24 12:25] LABS: Abs Immature Grans 0.03 10^3/uL (0.0-0.06); Absolute Eosinophil Count 0.17 10^3/uL (0.0-0.7); Absolute Monocyte Count 0.74 10^3/uL (0.1-0.8); Absolute Neutrophil Count 5.01 10^3/uL (1.2-6.7); Eosinophils % 1.7; HCT 53.2 % (36.0-46.0); HGB 16.7 g/dL (11.2-15.7); Immature Grans % 0.3; Lymphocytes % 38.6; MCHC 31.4 % (32.0-36.0); MCV 95.5 fL (80-95); MPV 10.5 fL (8.0-11.0); Monocytes % 7.5; Neutrophils % 50.9; Nucleated RBC 0 %; Platelet Count 367 10^3/uL (130-400); RBC 5.57 10^6/uL (3.93-5.22); RDW 16.1 % (11.7-14.6); RDW-SD 57.4 fL; WBC 9.85 10^3/uL (4.4-10.8)
[2020-03-24 12:36] LABS: ALT 25 U/L (14-59); AST 21 U/L (15-37); Albumin 3.9 g/dL (3.4-5.0); Alkaline Phosphatase 162 U/L (46-116); BUN 8 mg/dL (7-18); Bilirubin, Total 0.4 mg/dL (0.2-1.0); CREATININE 0.8 mg/dL (0.55-1.02); Calcium 8.7 mg/dL (8.5-10.1); Calculated LDL 101 mg/dL (<100); Chloride 98 mmol/L (98-107); Cholesterol 171 mg/dL (<200); Glucose 101 mg/dL (74-106); HDL Cholesterol 50 mg/dL (40-60); Potassium 4.3 mmol/L (3.5-5.1); Sodium 137 mmol/L (136-145); Triglyceride 103 mg/dL (<150)
[2020-03-24 13:18] LABS: Bilirubin Negative (Negative); Blood Negative (Negative); Clarity Clear (Clear); Glucose Negative (Negative); Ketones Negative (Negative); Leukocyte Esterase Negative (Negative); Nitrite Negative (Negative); Urobilinogen 0.2 EU/dL (Up TO 0.2)
[2020-03-24 18:15] LABS: ESR 70 mm/hr (<or=30)
[2020-03-25 15:01] LABS: Albumin 52.2 % (55.8-66.1); Total Protein 7.8 g/dL (6.3-8.2)
== END 2020-03-24 02:38 | disposition home or self-care (01) ==
LOC: LOS 02:38
PROVIDERS: PCP Family Medicine; Visit Provider Family Medicine
DX: R53.83 Other fatigue (principal); I10 Essential (primary) hypertension; N39.3 Stress incontinence (female) (male)
CPT/HCPCS: 36415; 80053; 80061; 85652; 81003; 84165; 85025

== ENCOUNTER 2020-03-27 01:44 | Outpatient (CLI) | payer OTHER, MEDICAID, SELFPAY ==
--- NOTE | 2020-03-27 14:55 | DI.MAMMO_ITS ---
EXAM: MAMMO SCREENING CLINICAL HISTORY: screening,Z12.39 TECHNIQUE: Mammograms were interpreted according to the usual protocol including computer analysis w [employer] CAD system, tomosynthesis and C-view imaging. COMPARISON: 2011 through 2017 FINDINGS: The breasts are composed of scattered fibroglandular densities, Breast Density category B. No suspicious masses or suspicious microcalcifications are seen. No skin thickening or abnormal axillary lymph nodes are seen. There has been no significant change from prior exams. IMPRESSION: BI-RADS Category 1, Negative mammogram Yearly screening mammography is recommended. Breast Density - Category B, scattered fibroglandular densities. A negative radiographic report should not delay biopsy if a dominant or clinically suspicious mass is present. Up to ten percent of cancers are not identified on mammography. A negative report may reinforce clinical impression. Adenosis and dense breasts may obscure an underlying neoplasm. False positive reports average 6 to 10%. Patient will receive a letter notifying them of these results.
== END 2020-03-27 01:45 ==
LOC: DI 01:44
PROVIDERS: PCP Family Medicine; Visit Provider Family Medicine
DX: Z12.31 Encounter for screening mammogram for malignant neoplasm of breast (principal)
CPT/HCPCS: 77063; 77067

== ENCOUNTER 2021-04-07 02:33 | Outpatient (CLI) | payer OTHER, MEDICAID, SELFPAY ==
--- NOTE | 2021-04-07 07:30 | DI.MRI_ITS ---
Exam(s) MR BRAIN WO EXAM: MR BRAIN WO CLINICAL HISTORY: monitoring of meningioma,d32.9. TECHNIQUE: Multiplanar multisequence MRI was performed. COMPARISON: MR MR BRAIN W from 04/03/2019 FINDINGS: MR examination of brain was performed according to the usual protocol. Previous MRI of 04/03/2019 sh owed a left parafalcine homogeneously enhancing mass consistent with meningioma. On today's examinat ion, this is increased in size from 5-7 millimeters in diameter to about 16 by 14 x 21 millimeters in diameter. No additional mass identified intracranially. No signal abnormality identified in the brain. Ventricular system is normal appearance. Orbital str uctures appear intact. Temporal bone structures appear intact. Diffusion weighted imaging is within normal limits. Susceptibility weighted imaging is within normal limits with no evidence of intracranial hemorrhage. IMPRESSION: Marked interval increase in size of presumed parafalcine meningioma. Additional post contrast imagin g is requested to evaluate for additional occult lesions and confirm meningioma enhancement pattern. DATA REPOSITORY:
== END 2021-04-07 02:53 ==
PROVIDERS: PCP Family Medicine; Visit Provider Nurse Practitioner Adult Health
DX: D32.0 Benign neoplasm of cerebral meninges (principal)
CPT/HCPCS: 70551

== ENCOUNTER 2021-04-27 00:34 | Outpatient (CLI) | payer OTHER, MEDICAID, SELFPAY ==
--- NOTE | 2021-04-27 06:52 | DI.MRI_ITS ---
Exam(s) MR BRAIN W EXAM: MR BRAIN W CLINICAL HISTORY: increase in meningioma,D32.9. TECHNIQUE: Multiplanar multisequence MRI of the brain was performed. CONTRAST MATERIAL: IV Contrast: 19 ML of Dotarem contrast administered. MR MR BRAIN W from 04/03/2019 MR MR BRAIN WO from 04/07/2021 FINDINGS: VENTRICLES AND EXTRA AXIAL SPACES: Cerebral parenchymal atrophy, particularly superiorly. HEMORRHAGE: None. CEREBRAL PARENCHYMA: No focus of restricted diffusion to suggest acute infarct. 16 x 14 x 21 millimet er extra-axial mass along the left frontal falx. No evidence of mass effect. moderate enhancement is mostly homogeneous with exception of a tiny focal area greater enhancement which could be vascula r. No additional areas of abnormal enhancement elsewhere in the brain.. MIDLINE SHIFT: None. BRAINSTEM/CEREBELLUM: Normal. VISUALIZED PARANASAL SINUSES/MASTOIDS: Clear. OTHER FINDINGS: Orbits unremarkable. IMPRESSION: The enhancement of the left frontal falcine lesion is mainly homogeneous. This could be consistent w ith a meningioma however due to the significant interval increase in size, malignancy should be consi dered. DATA REPOSITORY:
[2021-04-27 08:38] LABS: CREATININE 0.9 mg/dL (0.55-1.02)
[2021-04-27] MEDS: Normal Saline Flush 10 ML SYR IVP (08:49)
[2021-04-27] MEDS: Gadoterate meglumine 20 ML VIAL 19 ML IVP (08:50)
== END 2021-04-27 00:54 ==
PROVIDERS: PCP Family Medicine; Visit Provider Nurse Practitioner Adult Health
DX: Z01.812 Encounter for preprocedural laboratory examination; D32.0 Benign neoplasm of cerebral meninges
CPT/HCPCS: 70552; 82565

== ENCOUNTER → 2021-06-01 09:14 | Outpatient (BNVA) | payer MEDICARE, MEDICAID, SELFPAY | PROVIDERS: PCP Family Medicine; Referring Provider Family Medicine; Visit Provider Nurse Practitioner Adult Health | DX: G43.109 Migraine with aura, not intractable, without status migrainosus (principal); D32.9 Benign neoplasm of meninges, unspecified; F17.210 Nicotine dependence, cigarettes, uncomplicated | CPT/HCPCS: 99213 ==

== ENCOUNTER 2021-06-26 18:14 | Emergency (ER) | payer MEDICARE, MEDICAID, SELFPAY ==
[2021-06-26] VITALS (13 sets, daily range): BP systolic 127–173; BP diastolic 52–74; PULSE 60–68; RESP 4–23; TEMP 36.1; O2SAT 78–95
--- NOTE | 2021-06-26 18:15 | DI.RAD_ITS ---
Exam(s) XR PORTABLE CHEST AP EXAM: XR PORTABLE CHEST AP CLINICAL HISTORY: Covid positive SOB. TECHNIQUE: 2D digital imaging was performed. COMPARISON: CR XR CHEST 2V PA LATERAL from 01/20/2018 FINDINGS: Single AP portable view. Heart size is mildly enlarged. The mediastinum is not widened. Increased bilateral interstitial markings, suspicious for pulmonary edema or interstitial inflammator y process. Mild blunting of the costophrenic angles noted which may represent small pleural effusions. IMPRESSION: Bilateral symmetrical interstitial disease. Suspicious for pulmonary edema or infectious etiology. Suspect small amount of pleural fluid bilaterally. DATA REPOSITORY: RADIATION DOSE DELIVERED: All CT scans at this facility use at least one of these dose optimization techniques: automated exposure control; mA and/or kV adjustment per patient size (includes targeted e xams where dose is matched to clinical indication); or iterative reconstruction.
--- NOTE | 2021-06-26 18:15 | RT.EKG_ITS ---
APPROVED REPORT Exam: Resting ECG Reason for Exam: SOB Patient Location: E HR:62 bpm ECG Measurements Heart Rate 62 AXIS LA 166 P 8 QRSd 102 QRS 74 QT 447 T 64 QTc 453 Conclusion Sinus rhythm...normal P axis, V-rate 60- 99 sinus rhythm, normal axis, t wave inversion V1 V2
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
[2021-06-26 19:17] LABS: Abs Immature Grans 0.05 10^3/uL (0.0-0.06); Absolute Basophil Count 0.03 10^3/uL (0.0-0.2); Absolute Eosinophil Count 0.03 10^3/uL (0.0-0.7); Absolute Lymphocyte Count 2.63 10^3/uL (1.2-3.4); Absolute Neutrophil Count 6.37 10^3/uL (1.2-6.7); Basophils % 0.3; Eosinophils % 0.3; HCT 44.2 % (36.0-46.0); HGB 14.7 g/dL (11.2-15.7); Immature Grans % 0.5; Lactate 0.8 mmol/L (0.6-1.4); Lymphocytes % 24.8; MCH 29.9 pg (27.0-33.0); MCHC 33.3 % (32.0-36.0); MCV 90 fL (80-95); MPV 9.7 fL (8.0-11.0); Monocytes % 14.1; Nucleated RBC 0.2 % (0.0-0.3); Platelet Count 252 10^3/uL (130-400); RBC 4.92 10^6/uL (3.93-5.22); RDW 13.9 % (11.7-14.6); RDW-SD 45.3 fL; WBC 10.61 10^3/uL (4.4-10.8)
[2021-06-26] MEDS: Albuterol/Ipratropium 3 ML UPD VIAL UPD ×2 (19:24→20:38)
[2021-06-26] MEDS: Dexamethasone 10 MG/ML VIAL 6 MG IVP (19:25)
[2021-06-26 19:28] LABS: ALT 36 U/L (14-59); AST 25 U/L (15-37); Albumin 3.6 g/dL (3.4-5.0); Alkaline Phosphatase 155 U/L (46-116); Anion Gap 3.8 mmol/L (3-11); BUN 11 mg/dL (7-18); Bilirubin, Total 0.5 mg/dL (0.2-1.0); CO2 33.2 mmol/L (21.0-32.0); CREATININE 0.9 mg/dL (0.55-1.02); Calcium 8.3 mg/dL (8.5-10.1); Chloride 86 mmol/L (98-107); Glucose 106 mg/dL (74-106); Potassium 4.3 mmol/L (3.5-5.1); Total Protein 7.7 g/dL (6.4-8.2)
[2021-06-26 19:33] LABS: C-Reactive Protein 0.97 mg/dL (0.0-0.3); LDH 197 U/L (81-234); Troponin I < 50 ng/L (<or=60)
[2021-06-26 19:38] LABS: Sodium 123 mmol/L (136-145)
[2021-06-26 20:01] LABS: Ferritin 151 ng/mL (8-252)
[2021-06-26] MEDS: Normal Saline 1,000 ML 1000 ML IV (20:01)
--- NOTE | 2021-06-26 20:05 | DI.VRAD_ITS ---
PROCEDURE INFORMATION: Exam: XR Chest Exam date and time: 06/26/2021 6:56 PM Age: 66 years old Clinical indication: Other: Covid + SOB TECHNIQUE: Imaging protocol: XR of the chest. Views: 1 view. COMPARISON: CR XR CHEST 2V PA LATERAL 01/20/2018 12:52 PM FINDINGS: Lungs: There is diffuse hazy indistinctness of the pulmonary vascular markings and increased hazy density through the lower lung zones. Pleural spaces: There is mild blunting of the costophrenic angles bilaterally. No pneumothorax is demonstrated. Heart/Mediastinum: The cardiac silhouette is enlarged. Bones/joints: The visualized bony structures appear grossly intact, as seen. IMPRESSION: 1. Enlarged heart. 2. Diffuse hazy indistinctness of the pulmonary vascular markings and increased hazy density through the lower lung zones. Pulmonary edema is suspected although an acute pulmonary infection is not excluded. 3. Mild blunting of the costophrenic angles bilaterally. Although nonspecific, small pleural effusions could produce this appearance. Dictated and Authenticated by: Bubba Cuevas MD. Ordering:JHONNY Hurtado MD
[2021-06-26 20:07] LABS: Procalcitonin < 0.1 ng/mL
[2021-06-26 20:08] LABS: D-Dimer 1456 ng/mlFEU (<500)
== END 2021-06-26 22:04 | disposition left against medical advice (07) ==
PROVIDERS: Emergency Provider Registered Nurse Emergency; PCP Family Medicine
DX: U07.1 COVID-19 (principal); R09.02 Hypoxemia; R87.1 Abnormal level of hormones in specimens from female genital organs; Z53.29 Procedure and treatment not carried out because of patient's decision for other reasons
CPT/HCPCS: 36415; 80053; 84145; 87040; 93005; 94640; 96361; 96374; 99284; 71045; 82728; 83605; 83615; 84484; 85025; 85379; 86140; 93010; J1100; J7620

== ENCOUNTER 2021-07-12 10:14 | Emergency (ER) | payer MEDICARE, MEDICAID, SELFPAY ==
[2021-07-12 10:33] VITALS: BP 145/64; PULSE 63; RESP 16; TEMP 36.6; O2SAT 94
--- NOTE | 2021-07-12 11:15 | RT.EKG_ITS ---
APPROVED REPORT Exam: Resting ECG Reason for Exam: sob Patient Location: E HR:59 bpm ECG Measurements Heart Rate 59 AXIS NE 164 P 30 QRSd 87 QRS 55 QT 422 T 52 QTc 419 Conclusion Sinus bradycardia...rate< 60 Low voltage, extremity leads...all extremity leads <0.5mV sinus bradycardia. normal axis, T wave inversion V1 V2
--- NOTE | 2021-07-12 11:15 | DI.RAD_ITS ---
Exam(s) XR PORTABLE CHEST AP EXAM: XR PORTABLE CHEST AP CLINICAL HISTORY: cough, copd TECHNIQUE: 2D digital imaging was performed of the chest. One image was obtained. An AP view was ob tained. COMPARISON: CR XR CHEST 2V PA LATERAL from 01/20/2018 FINDINGS: MEDIASTINUM: Normal. HEART: Cardiomegaly. PULMONARY VASCULATURE: Mild prominence of the pulmonary vasculature. LUNGS: Mild prominence of the interstitial markings. It is improved compared to the examination from 06/26/2021. PLEURAL SPACE: There does appear to be some blunting of the costophrenic angles and small effusions c annot be excluded. BONE:Within normal limits for the patient's age. OTHER FINDINGS:Normal. IMPRESSION: Findings concerning for fluid overload/pulmonary edema. Please correlate clinically. DATA REPOSITORY: RADIATION DOSE DELIVERED:
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
[2021-07-12 11:46] LABS: Abs Immature Grans 0.03 10^3/uL (0.0-0.06); Absolute Basophil Count 0.08 10^3/uL (0.0-0.2); Absolute Eosinophil Count 0.14 10^3/uL (0.0-0.7); Absolute Lymphocyte Count 1.81 10^3/uL (1.2-3.4); Absolute Monocyte Count 0.77 10^3/uL (0.1-0.8); Absolute Neutrophil Count 5.31 10^3/uL (1.2-6.7); Eosinophils % 1.7; HGB 15.5 g/dL (11.2-15.7); Immature Grans % 0.4; Lymphocytes % 22.2; MCH 29.2 pg (27.0-33.0); MCV 94 fL (80-95); Monocytes % 9.5; Neutrophils % 65.2; Platelet Count 324 10^3/uL (130-400); RDW 14.9 % (11.7-14.6); RDW-SD 51.6 fL; WBC 8.14 10^3/uL (4.4-10.8)
--- NOTE | 2021-07-12 11:52 | DI.VRAD_ITS ---
PROCEDURE INFORMATION: Exam: XR Chest Exam date and time: 07/12/2021 11:30 AM Age: 66 years old Clinical indication: Cough TECHNIQUE: Imaging protocol: XR of the chest. Views: 1 view. COMPARISON: XR PORTABLE CHEST AP 06/26/2021 6:56 PM FINDINGS: Lungs: Hyperexpanded lung henriquez consistent with COPD Pleural spaces: Unremarkable. No pleural effusion. No pneumothorax. Heart/Mediastinum: Mild cardiomegaly Bones/joints: Unremarkable. IMPRESSION: Hyperexpanded lung henriquez consistent with COPD Dictated and Authenticated by: Zoran Phan MD. Ordering:ENRIQUE Cordon MD
[2021-07-12 11:57] VITALS: PULSE 78; RESP 18; O2SAT 95
[2021-07-12] MEDS: Albuterol/Ipratropium 3 ML UPD VIAL 9 ML UPD (11:57)
[2021-07-12 11:58] VITALS: RESP 20
[2021-07-12] MEDS: Dexamethasone 10 MG/ML VIAL IVP (11:58)
[2021-07-12 12:03] LABS: ALT 19 U/L (14-59); AST 14 U/L (15-37); Albumin 3.3 g/dL (3.4-5.0); Alkaline Phosphatase 134 U/L (46-116); Anion Gap 5.3 mmol/L (3-11); BUN 7 mg/dL (7-18); Bilirubin, Total 0.5 mg/dL (0.2-1.0); CO2 33.7 mmol/L (21.0-32.0); CREATININE 0.9 mg/dL (0.55-1.02); Calcium 8.6 mg/dL (8.5-10.1); Chloride 99 mmol/L (98-107); Glucose 114 mg/dL (74-106); Potassium 4.3 mmol/L (3.5-5.1); Sodium 138 mmol/L (136-145); Total Protein 7.7 g/dL (6.4-8.2); Troponin I < 50 ng/L (<or=60)
[2021-07-12 12:37] LABS: NT-proBNP 497 pg/mL (<300)
[2021-07-12 13:46] VITALS: BP 132/84; PULSE 78; RESP 18; TEMP 37; O2SAT 92
== END 2021-07-12 14:38 | disposition home or self-care (01) ==
PROVIDERS: Emergency Provider Emergency Medicine; PCP Family Medicine
DX: J44.1 Chronic obstructive pulmonary disease with (acute) exacerbation (principal); R06.02 Shortness of breath; F17.210 Nicotine dependence, cigarettes, uncomplicated; R05.1 Acute cough
CPT/HCPCS: 80053; 93005; 94640; 96374; 99284; 71045; 83880; 84484; 85025; 93010; J1100; J7620

== ENCOUNTER 2021-07-17 01:09 | Outpatient (CLI) | payer MEDICARE, MEDICAID, SELFPAY ==
[2021-07-17 13:18] LABS: Anion Gap 10.4 mmol/L (3-11); BUN 6 mg/dL (7-18); CO2 29.6 mmol/L (21.0-32.0); CREATININE 0.9 mg/dL (0.55-1.02); Calcium 8.6 mg/dL (8.5-10.1); Chloride 99 mmol/L (98-107); Glucose 128 mg/dL (74-106); Potassium 4.6 mmol/L (3.5-5.1); Sodium 139 mmol/L (136-145)
== END 2021-07-17 01:10 | disposition home or self-care (01) ==
LOC: LOS 01:10
PROVIDERS: PCP Family Medicine; Visit Provider Family Medicine
DX: R06.09 Other forms of dyspnea (principal); R06.89 Other abnormalities of breathing
CPT/HCPCS: 36415; 80048

== ENCOUNTER → 2021-07-21 18:57 | Outpatient (CLI) | payer MEDICARE, MEDICAID, SELFPAY ==
--- NOTE | 2021-07-21 14:00 | DI.RAD_ITS ---
Exam(s) XR CHEST 2V PA LATERAL EXAM: XR CHEST 2V PA LATERAL CLINICAL HISTORY: dyspnea, hypoxia, edema,r60.9,r09.02,j44.1 TECHNIQUE: 2D digital imaging was performed. COMPARISON: CR CHEST 2 VIEWS PA,LAT from 04/07/2015 CR XR CHEST 2V PA LATERAL from 01/20/2018 CR,XR XR PORTABLE CHEST AP from 06/26/2021 CR,XR XR PORTABLE CHEST AP from 07/12/2021 FINDINGS: MEDIASTINUM: Normal. HEART: Stable cardiomegaly. PULMONARY VASCULATURE: Prominent, symmetric. LUNGS: Increased interstitial markings PLEURAL SPACE: No pleural effusion or pneumothorax. BONE:Unremarkable for age. IMPRESSION: Cardiomegaly and mild CHF. DATA REPOSITORY: RADIATION DOSE DELIVERED:
--- NOTE | 2021-07-21 16:56 | DI.US_ITS ---
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 Technically limited study due to body habitus. Conclusion Normal left ventricular wall thickness and chamber size. Estimated ejection fraction is 60%. Wall m otion is normal Normal right ventricular size and systolic function Both atria are normal in size The aortic valve is sclerotic and trileaflet without stenosis or regurgitation Structurally normal mitral valve with mild regurgitation Structurally normal tricuspid valve with trace regurgitation. Estimated right ventricular systolic p ressure is 39 mmHg Wall motion Left Ventricle The left ventricle is normal size. The left ventricular systolic function is normal. The left ventric ular ejection fraction is within the normal range. There is normal left ventricular wall thickness. T here is normal LV segmental wall motion. There is no ventricular septal defect visualized. LVEF is 60 %. Right Ventricle The right ventricle is normal size. The right ventricular systolic function is normal. The RVSP is 38 .76 mmHg. Atria The left atrium size is normal. The right atrium size is normal. The interatrial septum is intact wit h no evidence for an atrial septal defect. Aortic Valve The Aortic valve is sclerotic. Aortic valve is trileaflet. There is no aortic valvular stenosis. No a ortic regurgitation is present. Mitral Valve The mitral valve is normal in structure. No evidence of mitral valve stenosis. Mild mitral regurgitat ion. Tricuspid Valve The tricuspid valve is normal in structure. There is no tricuspid valve stenosis. Trace tricuspid reg urgitation. Pulmonic Valve The pulmonary valve is normal in structure. There is no pulmonic valvular stenosis. There is no pulmo kameron valvular regurgitation. Great Vessels The aortic root is normal in size. The ascending aorta is normal in size. Aortic arch is normal in ca liber. The IVC collapses <50% with inspiration. Pericardium There is no pericardial effusion. 2D Dimensions IVSD d PLAX 0.93 cm F: 0.6-1.0 LV Vol A2C d MOD 117.3 mL LVPW d PLAX 0.96 cm F: 0.6 - 1.0 LV Vol A4C d MOD 106.4 mL LVID d PLAX 5.22 cm F: 3.8 - 5.2 LA vol/ BSA A2C s A-L 18.4 mL/m2 LVDs 3.55 cm F: 2.2 - 3.5 LA vol/ BSA A4C s A-L 23.3 mL/m2 Ao Root d 2.35 cm F: 2.7 - 3.3 LA Vol/ BSA Biplane s A-L 21.0 mL/m2 RA Area A4C 15.16 cm2 LA Area A4C s MOD 17.78 cm2 RA Vol/ BSA A4C s A-L 18.7 mL/m2 LA Area A2C s MOD 15.63 cm2 Ao Asc Diam d 3.25 cm F: 2.3 - 3.1 LV EF A4C MOD 58.6 % LV EF Teichholz 59.3 % LV EF A2C MOD 58.6 % LVEF (Stout's) 57.99 % F: 54 - 74 LV EF Biplane MOD 58.0 % LV Volume 83.52 mL F: 46 - 106 SV 65.21 mL LV Volume Index 40.54 mL/m2 F: 29 - 61 SV Index 31.66 mL/m2 LV Vol Biplane MOD 112.4 mL FS 31.70 % M-Mode TAPSE 3.63 cm (M/F) >1.7 LV Diastology MV E' medial 0.101 (>0.07 m/s) E/A Ratio 1.1 LV E/e MED 11.85 (<14) MV E Vmax 1.20 (0.4-1.3 m/s) MV E' lateral 0.077 (>0.1 m/s) MV A Vmax 1.10 (0.4-1.3 m/s) LV E/e LAT 15.60 (<14) MV E/A Ratio 1.04 MV E/E' medial 11.85 MV E/E' lateral 15.64 Aortic Valve LVOT Area 2.97 cm2 AoV Area Vmax 2.12 cm2 LVOT Vmax 1.49 m/s AoV Area/ BSA (Vmax) 1.03 cm2/m2 LVOT Mean Devan. 1.04 m/s CEDRIC Mean Devan. 2.05 cm2 LVOT Peak Grad 8.9 mmHg CEDRIC Mean Devan. Index 0.99 cm2/m2 LVOT Mean Grad 4.9 mmHg LVOT VTI 0.324 m LVOT Diam s 1.90 cm AoV Vmax 2.09 m/s Velocity Ratio 0.71 AoV Mean Devan. 1.51 m/s AoV Peak Grad 17.5 mmHg LVOT SV 96.14 mL AoV Mean Grad 10.2 mmHg AoV VTI 0.470 m AoV Area VTI 2.05 cm2 AoV Area/ BSA (VTI) 0.99 cm/m2 Mitral Valve MV DT 262 (160-240 msec) MV PHT 76 msec MV Area PHT 2.89 cm2 MV VTI 0.497 m MV Area VTI 1.94 (4.0-6.0 cm2) Pulmonary Valve PV Vmax 1.30 (0.5-1.5 m/s) RVOT Peak Gr. 3.99 mmHg PV Peak Grad 6.7 mmHg RVOT Mean Gr. 2.70 mmHg PV Mean Grad 4.4 mmHg RVOT VTI 0.234 m PV VTI 0.303 m RVOT Vmax 1.00 m/s Tricuspid Valve TR Peak Grad 30.5 mmHg TR Vmax 2.76 m/s RA Pressure 8.00 mmHg RVSP (TR) 38.7 mmHg
== END ==
PROVIDERS: PCP Family Medicine; Visit Provider Family Medicine
DX: J44.1 Chronic obstructive pulmonary disease with (acute) exacerbation (principal); R06.09 Other forms of dyspnea; R09.02 Hypoxemia; R60.0 Localized edema; I51.7 Cardiomegaly; I50.9 Heart failure, unspecified
CPT/HCPCS: 71046; 93306

== ENCOUNTER 2021-07-23 02:18 | Outpatient (CLI) | payer MEDICARE, MEDICAID, SELFPAY ==
[2021-07-23 11:20] LABS: Anion Gap 5.6 mmol/L (3-11); BUN 6 mg/dL (7-18); CO2 34.4 mmol/L (21.0-32.0); CREATININE 0.9 mg/dL (0.55-1.02); Calcium 8.5 mg/dL (8.5-10.1); Chloride 97 mmol/L (98-107); Glucose 118 mg/dL (74-106); Sodium 137 mmol/L (136-145)
== END 2021-07-23 02:19 | disposition home or self-care (01) ==
LOC: LOS 02:18
PROVIDERS: PCP Family Medicine; Visit Provider Family Medicine
DX: J44.1 Chronic obstructive pulmonary disease with (acute) exacerbation (principal); R09.02 Hypoxemia; R60.9 Edema, unspecified
CPT/HCPCS: 36415; 80048

== ENCOUNTER 2021-08-25 03:12 | Outpatient (CLI) | payer MEDICARE, MEDICAID, SELFPAY ==
[2021-08-25] MEDS: Inhaler, Assist Device 1 EACH MC (14:03)
[2021-08-25] MEDS: Albuterol HFA 18 GM 200 PUFF INH IH (14:03)
--- NOTE | 2021-08-25 16:18 | W.PFT ---
Date of service: 08/25/21 Time of Service: 13:06 Pulmonary Function Test Result Requesting Provider Tayla Gilbert Indications: COPD Interpretation Spirometry: There is no airflow limitation. There is restrictive appearing spirometry. There is no significant bronchodilator response. Lung Volumes: Patient refused Diffusion Capacity: Decreased diffusion Impression Restrictive appearing spirometry, which may be due to pseudo-restriction from obesity, restrictive lung disease or severe obstruction. A decreased diffusion could be caused by emphysema or pulmonary vascular disease. Note: When compared to 05/16/12, the FEV1 and FVC are decreased but the diffusion is likely stable. Clinical Correlation therefore is recommended.
== END 2021-08-25 03:13 | disposition home or self-care (01) ==
LOC: RT 03:12
PROVIDERS: PCP Family Medicine; Visit Provider Family Medicine
DX: R60.0 Localized edema (principal); J44.1 Chronic obstructive pulmonary disease with (acute) exacerbation; R94.2 Abnormal results of pulmonary function studies; R05.3 Chronic cough; F17.210 Nicotine dependence, cigarettes, uncomplicated
CPT/HCPCS: 94060; 94729

== ENCOUNTER 2021-09-04 08:35 | Outpatient (CLI) | payer MEDICARE, MEDICAID, SELFPAY ==
[2021-09-04 12:59] LABS: Anion Gap 10.1 mmol/L (3-11); BUN 11 mg/dL (7-18); CO2 28.9 mmol/L (21.0-32.0); CREATININE 0.9 mg/dL (0.55-1.02); Calcium 8.8 mg/dL (8.5-10.1); Chloride 97 mmol/L (98-107); Glucose 113 mg/dL (74-106); Potassium 4.3 mmol/L (3.5-5.1); Sodium 136 mmol/L (136-145)
== END 2021-09-04 08:36 | disposition home or self-care (01) ==
LOC: LOS 08:35
PROVIDERS: PCP Family Medicine; Visit Provider Family Medicine
DX: I10 Essential (primary) hypertension (principal)
CPT/HCPCS: 36415; 80048

== ENCOUNTER → 2021-09-25 00:30 | Outpatient (CLI) | payer MEDICARE, MEDICAID, SELFPAY ==
--- NOTE | 2021-09-25 07:45 | DI.MRI_ITS ---
Exam(s) MR LUMBAR SPINE WO EXAM: MR LUMBAR SPINE WO CLINICAL HISTORY: bilat leg numbness with standing,spinal stenosis, m48.00. TECHNIQUE: Multiplanar multisequence MRI of the Lumbar spine was performed. COMPARISON: MR MRI - LUMBAR SPINE WO CONTRAST from 07/09/2014 CR XR CHEST 2V PA LATERAL from 07/21/2021 FINDINGS: Bones: The last intervertebral disc space is designated the L5/S1 level for the numbering purpose of this examination. The vertebral body heights are well maintained. Alignment is satisfactory. The ma rrow signal characteristics are unremarkable other than small hemangiomas in the L1 and L2 vertebral bodies.. Cord: The conus tip ends at the T12 level. It is of normal size and signal intensity. T12-L1: No disc herniations or bulges are present. No central spinal canal or neural foraminal stenos is. L1-2: No disc herniations or bulges are present. No central spinal canal or neural foraminal stenosis . L2-3: Endplate osteophytes mainly projecting anteriorly. Mild concentric disc bulging. Mild ligamen tous hypertrophy.. No central spinal canal or neural foraminal stenosis. L3-4: Mild concentric disc bulging. Minimal endplate osteophytes. Mild ligamentous hypertrophy. Mi ld left neural foraminal narrowing. No central spinal canal stenosis. L4-5: Moderate broad-based disc bulging. Ligamentous hypertrophy and facet degenerative changes but no significant central canal stenosis. Mild to moderate bilateral neural foraminal narrowing. L5-S1: No disc herniations or bulges are present. Prominent facet degenerative changes cause mild-to -moderate bilateral neural foraminal encroachment. No significant central canal stenosis. The visualized SI joints and sacrum are well maintained. Soft tissues: Bilateral renal cysts.. IMPRESSION: Degenerative disc changes and facet degenerative changes at multiple levels. No evidence of a focal disc herniation significant spinal stenosis. Neural foraminal narrowing is greatest at L4-5 and L5-S 1. Findings appear roughly stable when compared with the prior exam. DATA REPOSITORY:
== END ==
PROVIDERS: PCP Family Medicine; Visit Provider Family Medicine
DX: M48.061 Spinal stenosis, lumbar region without neurogenic claudication (principal); M48.07 Spinal stenosis, lumbosacral region; M43.06 Spondylolysis, lumbar region; M43.07 Spondylolysis, lumbosacral region
CPT/HCPCS: 72148

== ENCOUNTER 2021-11-10 03:26 | Outpatient (CLI) | payer MEDICARE, MEDICAID, SELFPAY ==
[2021-11-10 12:50] LABS: ALT 11 U/L (14-59); AST 10 U/L (15-37); Albumin 3.3 g/dL (3.4-5.0); Alkaline Phosphatase 128 U/L (46-116); Anion Gap 4.8 mmol/L (3-11); BUN 10 mg/dL (7-18); Bilirubin, Total 0.3 mg/dL (0.2-1.0); CO2 32.2 mmol/L (21.0-32.0); Calcium 8.7 mg/dL (8.5-10.1); Chloride 98 mmol/L (98-107); Estimated GFR 62.13 (mL/min/1.73m2); Glucose 123 mg/dL (74-106); Potassium 3.7 mmol/L (3.5-5.1); Sodium 135 mmol/L (136-145); Total Protein 7.5 g/dL (6.4-8.2)
== END 2021-11-10 03:27 | disposition home or self-care (01) ==
LOC: LOS 03:26
PROVIDERS: PCP Family Medicine; Visit Provider Family Medicine
DX: I10 Essential (primary) hypertension (principal)
CPT/HCPCS: 36415; 80053

== ENCOUNTER → 2021-11-16 12:43 | Outpatient (CLI) | payer MEDICARE, MEDICAID, SELFPAY ==
--- NOTE | 2021-11-16 | DI.RAD_ITS ---
Exam(s) XR CHEST 2V PA LATERAL EXAM: XR CHEST 2V PA LATERAL CLINICAL HISTORY: SHORTNESS OF BREATH-R06.02 TECHNIQUE: 2D digital imaging was performed. COMPARISON: CR,XR XR PORTABLE CHEST AP from 06/26/2021 CR,XR XR PORTABLE CHEST AP from 07/12/2021 CR XR CHEST 2V PA LATERAL from 07/21/2021 FINDINGS: HEART: Normal size. Aorta: Normal diameter. PULMONARY VASCULATURE: Prominent. LUNGS: Increased interstitial markings greater at the lung bases suspicious for CHF. PLEURAL SPACE: Small right pleural effusion. No pneumothorax. BONE:Unremarkable for age. IMPRESSION: Small right pleural effusion and mild CHF. DATA REPOSITORY: RADIATION DOSE DELIVERED:
== END ==
PROVIDERS: PCP Family Medicine; Visit Provider Nurse Practitioner Family
DX: R06.02 Shortness of breath (principal); J90 Pleural effusion, not elsewhere classified; I50.9 Heart failure, unspecified
CPT/HCPCS: 71046

== ENCOUNTER 2021-11-16 13:05 | Outpatient (REF) | payer MEDICARE, MEDICAID, SELFPAY ==
[2021-11-16 14:31] LABS: Abs Immature Grans 0.02 10^3/uL (0.0-0.06); Absolute Basophil Count 0.07 10^3/uL (0.0-0.2); Absolute Eosinophil Count 0.05 10^3/uL (0.0-0.7); Absolute Lymphocyte Count 2.75 10^3/uL (1.2-3.4); Absolute Monocyte Count 1.09 10^3/uL (0.1-0.8); Absolute Neutrophil Count 6.18 10^3/uL (1.2-6.7); Basophils % 0.7; Eosinophils % 0.5; HCT 47.9 % (36.0-46.0); HGB 15.1 g/dL (11.2-15.7); Immature Grans % 0.2; Lymphocytes % 27.1; MCH 28.9 pg (27.0-33.0); MCHC 31.5 % (32.0-36.0); MCV 92 fL (80-95); MPV 9.9 fL (8.0-11.0); Monocytes % 10.7; Neutrophils % 60.8; Platelet Count 329 10^3/uL (130-400); RBC 5.22 10^6/uL (3.93-5.22); RDW-SD 57.1 fL; WBC 10.16 10^3/uL (4.4-10.8)
[2021-11-16 14:52] LABS: ALT 26 U/L (14-59); AST 24 U/L (15-37); Albumin 3.3 g/dL (3.4-5.0); Alkaline Phosphatase 163 U/L (46-116); Anion Gap 5.2 mmol/L (3-11); BUN 10 mg/dL (7-18); Bilirubin, Total 0.4 mg/dL (0.2-1.0); CO2 32.8 mmol/L (21.0-32.0); CREATININE 0.8 mg/dL (0.55-1.02); Calcium 8.6 mg/dL (8.5-10.1); Chloride 93 mmol/L (98-107); Estimated GFR 81.21 (mL/min/1.73m2); Glucose 110 mg/dL (74-106); NT-proBNP 2146 pg/mL (<300); Potassium 4.6 mmol/L (3.5-5.1); Sodium 131 mmol/L (136-145); TSH 3.92 uIU/mL (0.36-3.74); Total Protein 7.2 g/dL (6.4-8.2)
== END 2021-11-16 13:06 | disposition home or self-care (01) ==
LOC: NCHCN 13:05
PROVIDERS: PCP Family Medicine; Visit Provider Nurse Practitioner Family
DX: R53.83 Other fatigue (principal); R06.02 Shortness of breath
CPT/HCPCS: 80053; 83880; 84443; 85025

== ENCOUNTER 2021-12-01 03:46 | Outpatient (CLI) | payer MEDICARE, MEDICAID, SELFPAY ==
[2021-12-01 15:15] LABS: BE (Venous) 13 mmol/L (-2-3); HCO3 (Venous) 38 mmol/L (23-28); O2 Sat (Venous) 47 %; TCO2 (Venous) 34 mmol/L (24-29); pO2 (Venous) 21 mmHg
[2021-12-01 15:23] LABS: pCO2 (Venous) 62 mmHg (41-51)
[2021-12-01 15:29] LABS: Anion Gap 2.1 mmol/L (3-11); BUN 7 mg/dL (7-18); CO2 37.9 mmol/L (21.0-32.0); Calcium 8.9 mg/dL (8.5-10.1); Chloride 97 mmol/L (98-107); Estimated GFR 62.13 (mL/min/1.73m2); Glucose 119 mg/dL (74-106); Potassium 3.6 mmol/L (3.5-5.1); Sodium 137 mmol/L (136-145)
== END 2021-12-01 03:47 | disposition home or self-care (01) ==
LOC: LBO 03:46
PROVIDERS: PCP Family Medicine; Visit Provider Family Medicine
DX: I10 Essential (primary) hypertension (principal); J44.9 Chronic obstructive pulmonary disease, unspecified; I50.9 Heart failure, unspecified; R06.02 Shortness of breath; F17.200 Nicotine dependence, unspecified, uncomplicated
CPT/HCPCS: 36415; 80048; 82805

== ENCOUNTER → 2022-01-08 00:42 | Outpatient (CLI) | payer MEDICARE, MEDICAID, SELFPAY ==
[2022-01-08] MEDS: Gadoterate meglumine 20 ML VIAL IVP (13:15)
--- NOTE | 2022-01-08 13:30 | DI.MRI_ITS ---
Exam(s) MR BRAIN WO/W EXAM: MR BRAIN WO/W CLINICAL HISTORY: MENINGIOMA TECHNIQUE: Multiplanar multisequence MRI of the brain was performed. Post contrast imaging was also obtained, with T1 weighted axial and coronal imaging and multi planar T1 MP rage imaging. COMPARISON: MR MR BRAIN W from 04/27/2021 FINDINGS: The ventricular system is normal in appearance. No signal abnormality identified in the brain apart from minimal periventricular signal abnormalities typical in this age group.. The orbital and temporal bone structures appear intact as does the pituitary. Diffusion weighted imaging shows no evidence of infarction. Susceptibility weighted imaging shows no evidence of intracranial hemorrhage. There is normal flow void in the [place] vasculature. The previously described left paramedian frontal extra-axial mass seen on prior MRI of April 27 is again seen, this measures about 27 x 19 x 18 millimeters in diameter on today's examination as compar ed to about 16 x 14 x 21 millimeters on prior study. No additional enhancing lesion identified in th e brain. IMPRESSION: Left frontal enhancing lesion with appearance suggesting meningioma has increased in size since prior study. This now measures 27 x 19 by 18 millimeters, as compared to 21 x 16 x 14 millimeters on prior study DATA REPOSITORY:
== END ==
PROVIDERS: PCP Family Medicine; Visit Provider Nurse Practitioner Acute Care
DX: D32.9 Benign neoplasm of meninges, unspecified (principal)
CPT/HCPCS: 70553

== ENCOUNTER 2022-04-21 10:10 | Outpatient (CLI) | payer MEDICARE, MEDICAID, SELFPAY ==
--- NOTE | 2022-04-21 10:00 | RT.EKG_ITS ---
APPROVED REPORT Exam: Resting ECG Reason for Exam: pre operative clearance Patient Location: O HR:55 bpm ECG Measurements Heart Rate 55 AXIS AL 179 P 47 QRSd 99 QRS 48 QT 430 T 65 QTc 412 Conclusion Sinus rhythm...normal P axis, V-rate 50- 99 Borderline low voltage, extremity leads...all extremity leads <0.6mV Otherwise normal
== END 2022-04-21 10:11 | disposition home or self-care (01) ==
LOC: DI.CM 10:11
PROVIDERS: PCP Family Medicine; Visit Provider Family Medicine
DX: Z01.818 Encounter for other preprocedural examination (principal)
CPT/HCPCS: 93010

== ENCOUNTER 2022-04-22 01:43 | Outpatient (CLI) | payer MEDICARE, MEDICAID, SELFPAY ==
--- NOTE | 2022-04-22 07:45 | DI.RAD_ITS ---
Exam(s) XR CHEST 2V PA LATERAL EXAM: XR CHEST 2V PA LATERAL CLINICAL HISTORY: preop,resp failure with hypercapnia,meningioma,j96.92,d32.9,z01.818 TECHNIQUE: 2D digital imaging was performed. COMPARISON: No exams were available for comparison FINDINGS: HEART: Mildly enlarged. Aorta: Not dilated. PULMONARY VASCULATURE: Prominent LUNGS: Will infiltrate or overt pulmonary edema. PLEURAL SPACE: No pleural effusion or pneumothorax. BONE:Unremarkable for age. IMPRESSION: No acute abnormality. DATA REPOSITORY: RADIATION DOSE DELIVERED:
== END 2022-04-22 02:03 ==
LOC: DI 01:44
PROVIDERS: PCP Family Medicine; Visit Provider Family Medicine
DX: D32.9 Benign neoplasm of meninges, unspecified (principal); J96.92 Respiratory failure, unspecified with hypercapnia; Z01.818 Encounter for other preprocedural examination
CPT/HCPCS: 71046

== ENCOUNTER 2022-04-22 12:35 | Outpatient (CLI) | payer MEDICARE, MEDICAID, SELFPAY ==
[2022-04-22 11:56] LABS: Abs Immature Grans 0.03 10^3/uL (0.0-0.06); Absolute Eosinophil Count 0.15 10^3/uL (0.0-0.7); Absolute Lymphocyte Count 2.43 10^3/uL (1.2-3.4); Absolute Neutrophil Count 5.43 10^3/uL (1.2-6.7); Basophils % 1.1; Eosinophils % 1.7; HCT 52.6 % (36.0-46.0); HGB 17.7 g/dL (11.2-15.7); Immature Grans % 0.3; Lymphocytes % 27.8; MCH 31.8 pg (27.0-33.0); MCHC 33.7 % (32.0-36.0); MCV 94 fL (80-95); MPV 9.6 fL (8.0-11.0); Monocytes % 6.9; Neutrophils % 62.2; Platelet Count 301 10^3/uL (130-400); RBC 5.57 10^6/uL (3.93-5.22); RDW 16.2 % (11.7-14.6); RDW-SD 51.9 fL; WBC 8.74 10^3/uL (4.4-10.8)
[2022-04-22 12:07] LABS: Prothrombin Time 10.4 sec (9.3-11.0)
[2022-04-22 12:35] LABS: ALT 13 U/L (14-59); AST 12 U/L (15-37); Albumin 3.6 g/dL (3.4-5.0); Alkaline Phosphatase 173 U/L (46-116); Anion Gap 7.4 mmol/L (3-11); BUN 6 mg/dL (7-18); Bilirubin, Total 0.4 mg/dL (0.2-1.0); CO2 33.6 mmol/L (21.0-32.0); CREATININE 0.9 mg/dL (0.55-1.02); Calcium 9.1 mg/dL (8.5-10.1); Chloride 98 mmol/L (98-107); Estimated GFR 70.07 (mL/min/1.73m2); Glucose 100 mg/dL (74-106); Potassium 4.3 mmol/L (3.5-5.1); Sodium 139 mmol/L (136-145); Total Protein 8.1 g/dL (6.4-8.2)
== END 2022-04-22 12:36 | disposition home or self-care (01) ==
LOC: LBO 12:36
PROVIDERS: PCP Family Medicine; Visit Provider Family Medicine
DX: I10 Essential (primary) hypertension (principal); E78.5 Hyperlipidemia, unspecified; R73.03 Prediabetes; I50.30 Unspecified diastolic (congestive) heart failure; D32.9 Benign neoplasm of meninges, unspecified; E66.01 Morbid (severe) obesity due to excess calories
CPT/HCPCS: 36415; 80053; 85025; 85610

== ENCOUNTER 2022-06-03 09:19 | Outpatient (CLI) | payer MEDICARE, MEDICAID, SELFPAY ==
[2022-06-03 14:31] LABS: BE 11 mmol/L (-2-3); HCO3 36 mmol/L (22-26); pCO2 58 mmHg (35-45); pH 7.39 (7.35-7.45); sO2 64 % (95-98); tCO2 31 mmol/L (23-27)
[2022-06-03 14:33] LABS: Site Left Radial
[2022-06-03 14:34] LABS: FIO2L ROOM AIR L
[2022-06-03 14:50] LABS: pO2 30 mmHg (80-105)
--- NOTE | 2022-06-04 15:07 | PFT_ITS ---
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
== END 2022-06-03 09:20 | disposition home or self-care (01) ==
PROVIDERS: PCP Family Medicine; Visit Provider Physician Assistant Surgical
DX: J44.9 Chronic obstructive pulmonary disease, unspecified (principal); J96.92 Respiratory failure, unspecified with hypercapnia
CPT/HCPCS: 82805; 94762

== ENCOUNTER 2022-06-03 09:23 | Outpatient (CLI) | payer MEDICARE, MEDICAID, SELFPAY | END 2022-06-03 09:24 | disposition home or self-care (01) | LOC: RT 09:23 | PROVIDERS: PCP Family Medicine; Visit Provider Physician Assistant Surgical | DX: J44.9 Chronic obstructive pulmonary disease, unspecified (principal); J96.92 Respiratory failure, unspecified with hypercapnia | CPT/HCPCS: 36600 ==

== ENCOUNTER 2022-06-29 01:22 | Outpatient (CLI) | payer MEDICARE, MEDICAID, SELFPAY ==
--- NOTE | 2022-06-29 07:00 | DI.CTLCSR_ITS ---
Exam(s) CT CHEST LUNG CANCER SCREEN EXAM: CT CHEST LUNG CANCER SCREEN CLINICAL HISTORY: Screening for lung cancer,current smoker, f17.210 TECHNIQUE: Imaging Protocol: Axial computed tomography images with coronal and sagittal reformatted images were created and reviewed COMPARISON: CT CHEST WITHOUT CONTRAST from 05/04/2012 CT ABD PELVIS WITH CONTRAST from 04/11/2017 FINDINGS: Tracheobronchial tree: Patent where visualized. Pulmonary parenchyma: There is atelectasis seen in the lung bases. No focal consolidating infiltrate s are seen. No architectural distortion. Lung Nodules: There is a 3 mm nodule in the periphery of the right upper lobe anteriorly. There is a small area of nodular scarring in the left lung base medially. Mediastinum and Flower: No dominant adenopathy or fluid collection. The esophagus is unremarkable. Thyroid gland: There is an enlarged right lobe of the thyroid gland. No discrete mass is seen. Lymph nodes: Unremarkable. Pleura: No effusion or pneumothorax. Heart: The heart is mildly enlarged. Coronary artery calcification is present. No pericardial effus ion. Aorta: Thoracic aorta non-dilated.Atherosclerosis is present. Upper abdomen: Status post cholecystectomy. There is a stable left adrenal nodule. There is also s table simple right renal cyst present. Soft Tissues: Unremarkable. Bones: Within normal limits. IMPRESSION: Small pulmonary nodules as described above. Lung RADS Cat 2 - Benign Appearance / Behavior: Nodules with a very low likelihood of becoming a clin ically active cancer due to size or lack of growth Lung-RADS 1.0 CATEGORIES: Category 0 - Prior chest CT exam(s) being located for comparison. Category 1 - Annual screening in 12 months. No nodules or definitely benign nodules. Category 2 - Annual screening in 12 months. Benign appearance. Nodules with low likelihood of becomin g active cancer. Category 3 - 6-month follow-up. Probably benign. Short-term follow-up suggested. Nodules with low lik elihood of becoming active cancer. Category 4A - 3-month follow-up and CT/PET if >8 mm in size. Suspicious finding. Findings which requi re additional testing. Category 4B - Findings which require additional testing and tissue sampling. Suspicious finding. Category 4X - Category 3 or 4 nodules with additional features or imaging findings that increases the suspicion of malignancy. Modifier S- Potentially clinically significant finding. (Non lung cancer) RADIATION DOSE DELIVERED: 76mGy.cm Total DLP 76mGy.cmTotal DLP DATA REPOSITORY: All CT scans at this facility are submitted to the National Radiology Data Registry (NRDR) Dose Index Registry (DIR) with the [employer] (ACR). RADIATION OPTIMIZATION: All CT scans at this facility use at least one of these dose optimization te chniques: automated exposure control; mA and/or kV adjustment per patient size (includes targeted exa ms where dose is matched to clinical indication); or iterative reconstruction.
== END 2022-06-29 01:42 ==
LOC: DI 01:22
PROVIDERS: PCP Family Medicine; Visit Provider Physician Assistant Surgical
DX: F17.210 Nicotine dependence, cigarettes, uncomplicated (principal); Z12.2 Encounter for screening for malignant neoplasm of respiratory organs; R91.1 Solitary pulmonary nodule
CPT/HCPCS: 71271

== ENCOUNTER 2022-08-16 03:05 | Outpatient (CLI) | payer MEDICARE, MEDICAID, SELFPAY ==
[2022-08-16 15:09] LABS: Abs Immature Grans 0.02 10^3/uL (0.0-0.06); Absolute Basophil Count 0.07 10^3/uL (0.0-0.2); Absolute Lymphocyte Count 2.84 10^3/uL (1.2-3.4); Absolute Monocyte Count 0.72 10^3/uL (0.1-0.8); Absolute Neutrophil Count 4.66 10^3/uL (1.2-6.7); Basophils % 0.8; Eosinophils % 2.4; HCT 48.4 % (36.0-46.0); Immature Grans % 0.2; Lymphocytes % 33.4; MCHC 33.1 % (32.0-36.0); MCV 91 fL (80-95); MPV 9.8 fL (8.0-11.0); Monocytes % 8.5; Neutrophils % 54.7; Platelet Count 337 10^3/uL (130-400); RBC 5.34 10^6/uL (3.93-5.22); RDW 13.7 % (11.7-14.6); RDW-SD 45.9 fL; WBC 8.51 10^3/uL (4.4-10.8)
[2022-08-16 15:37] LABS: Anion Gap 8.2 mmol/L (3-11); BUN 7 mg/dL (7-18); CO2 26.8 mmol/L (21.0-32.0); CREATININE 0.9 mg/dL (0.55-1.02); Calcium 8.9 mg/dL (8.5-10.1); Chloride 100 mmol/L (98-107); Estimated GFR 70.07 (mL/min/1.73m2); Glucose 119 mg/dL (74-106); Potassium 4.5 mmol/L (3.5-5.1); Sodium 135 mmol/L (136-145)
== END 2022-08-16 03:06 | disposition home or self-care (01) ==
LOC: LBO 03:06
PROVIDERS: PCP Family Medicine; Visit Provider Family Medicine
DX: Z01.818 Encounter for other preprocedural examination (principal); D32.9 Benign neoplasm of meninges, unspecified; J44.9 Chronic obstructive pulmonary disease, unspecified; I50.30 Unspecified diastolic (congestive) heart failure
CPT/HCPCS: 36415; 80048; 85025; 85610

== ENCOUNTER 2022-11-23 09:35 | Inpatient (IN) | payer MEDICARE, MEDICAID, SELFPAY ==
[2022-11-23] VITALS (72 sets, daily range): BP systolic 124–141; BP diastolic 40–82; PULSE 62–79; RESP 1–29; TEMP 31–37.4; O2SAT 43–96
--- NOTE | 2022-11-23 | DI.US_ITS ---
APPROVED REPORT EXAM: Comprehensive 2D, Doppler, and color-flow Echocardiogram Patient Location: In-Patient Room/Bed: 221 Informatics Specialist: Alison Ortiz RDCS (AE) Indications: Evaluate LV and RV function, dyspnea, high BNP Other Information Study Quality: Adequate. Technically limited study due to body habitus, inability to position patient exam done supine bedside. Conclusion Normal left ventricular size and wall thickness. Ejection fraction is 60%. Diastolic function is no rmal. There are no segmental wall motion abnormalities Normal right ventricular size and function Both atria are normal in size Aortic valve is mildly sclerotic and trileaflet without stenosis or regurgitation Right ventricular systolic pressure could not be estimated Wall motion Left Ventricle The left ventricle is normal size. The left ventricular systolic function is normal. The left ventric ular ejection fraction is within the normal range. There is normal left ventricular wall thickness. T here is normal LV segmental wall motion. There is no ventricular septal defect visualized. LVEF is 6 0%. Right Ventricle Right ventricle is grossly normal in size. Right ventricular systolic function is grossly normal. Atria The left atrium size is normal. The right atrium size is normal. The interatrial septum is intact wit h no evidence for an atrial septal defect. Aortic Valve The Aortic valve is mildly sclerotic. Aortic valve is trileaflet. There is no aortic valvular stenosi s. No aortic regurgitation is present. Mitral Valve The mitral valve is normal in structure. No evidence of mitral valve stenosis. Trace to mild mitral regurgitation. Tricuspid Valve The tricuspid valve is normal in structure. There is no tricuspid valve stenosis. Trace tricuspid reg urgitation. Unable to assess PA pressure. Pulmonic Valve The pulmonary valve is normal in structure. There is no pulmonic valvular stenosis. There is no pulmo kameron valvular regurgitation. Great Vessels The aortic root is normal in size. The ascending aorta is normal in size. Aortic arch is not well vis ualized. The IVC collapses <50% with inspiration. Pericardium There is no pericardial effusion. 2D Dimensions IVSD d PLAX 0.90 cm F: 0.6-1.0 Ao Root d 2.67 cm F: 2.7 - 3.3 LVPW d PLAX 0.90 cm F: 0.6 - 1.0 Ao Asc Diam d 3.15 cm F: 2.3 - 3.1 LVID d PLAX 4.68 cm F: 3.8 - 5.2 LVDs 3.17 cm F: 2.2 - 3.5 LV EF Teichholz 60.4 % FS 32.21 % LV EDV (Teich) 101.3 mL LV ESV (Teich) 40.1 mL M-Mode TAPSE 3.43 cm (M/F) >1.7 Auto EF LV EDV A4C 127.6 mL LV EDV A2C 145.1 mL LV EDV BP 135.1 mL LV ESV A4C 44.5 mL LV ESV A2C 58.6 mL LV ESV BP 51.3 mL LVEF(%) A4C 65.1 % LVEF(%) A2C 59.6 % LVEF(%) BP 62.0 % LV SV A4C 83.1 ml LV SV A2C 86.5 ml LV SV BP 83.8 ml LV CO A4C 5.3 L/min LV CO A2C 6.3 L/min LV CO BP 5.8 L/min HR A4C 63.84 BPM HR A2C 72.44 BPM LV EDV Index (BP) LA Volume LA Length A4C 5.6 cm LA Length A2C 5.3 cm LA Area A4C s 18.98 cm2 LA Area A2C s 14.52 cm2 LA Vol A4C A-L 54.82 mL LA Vol A2C A-L 33.93 mL LA Vol Biplane A-L 44.3 mL LA Vol/BSA A4C A-L LA Vol/BSA A2C A-L LA Vol/BSA BP A-L 22.4 mL/m2 LA Vol A4C MOD 49.6 mL LA Vol A2C MOD 32.8 mL LA Vol BP MOD 41.0 mL RA Volume RA Area A4C 14.5 cm2 RA ESV A4C (A-L) 37.1mL RA Vol/BSA A4C A-L RA Length A4C 4.8 cm RA ESV A4C (MOD) 34.1mL LV Diastology MV E' medial 0.078 (>0.07 m/s) MV E Vmax 0.96 (0.4-1.3 m/s) MV E/E' MED 12.25 (<14) MV A Vmax 1.05 (0.4-1.3 m/s) MV E' lateral 0.077 (>0.1 m/s) E/A Ratio 0.9 MV E/E' LAT 12.47 (<14) MV E' Average 0.078 m/s MV E/E'(average) 12.36 Aortic Valve AoV Vmax 2.15 m/s LVOT Vmax 1.44 m/s AoV Peak Grad 18.4 mmHg LVOT Peak Grad 8.3 mmHg AoV Area (Vmax) 2.27 cm2 LVOT VTI 0.382 m AoV VTI 0.492 m LVOT Mean Grad 5.6 mmHg AoV Mean Devan. 1.41 m/s LVOT SV 129.24 mL AoV Mean Grad 9.3 mmHg LVOT Diam s 2.05 cm AoV Area (VTI) 2.62 cm2 Velocity Ratio 0.67 Mitral Valve MV DT 214 (160-240 msec) MV Vmax TIPS 1.30 m/s MV Mean Grad 2.5 (<2mmHg) MV VTI 0.506 m Pulmonary Valve PV Vmax 1.40 (0.5-1.5 m/s) RVOT Vmax 1.08 m/s PV Peak Grad 7.9 mmHg RVOT Peak Gr. 4.6 mmHg PV Mean Devan 1.01 m/s RVOT VTI 0.223 m PV Mean Grad 4.5 mmHg RVOT Mean Gr. 2.7 mmHg Tricuspid Valve RA Pressure 8.00 mmHg TV S' 0.20 m/s
--- NOTE | 2022-11-23 09:30 | RT.EKG_ITS ---
APPROVED REPORT Exam: Resting ECG Reason for Exam: sob Patient Location: E HR:66 bpm ECG Measurements Heart Rate 66 AXIS NH 157 P 54 QRSd 96 QRS 73 QT 395 T 63 QTc 413 Conclusion Sinus rhythm...normal P axis, V-rate 60- 99 Physician: no stemi, artifact in V2
--- NOTE | 2022-11-23 09:45 | DI.RAD_ITS ---
Exam(s) XR PORTABLE CHEST AP EXAM: XR PORTABLE CHEST AP CLINICAL HISTORY: sob, hypoxic TECHNIQUE: 2D digital imaging was performed of the chest. One image was obtained. An AP view was ob tained. COMPARISON: CR,XR XR PORTABLE CHEST AP from 07/12/2021 CR XR CHEST 2V PA LATERAL from 04/22/2022 FINDINGS: MEDIASTINUM: Normal. HEART: Normal. PULMONARY VASCULATURE: Stable and within normal limits. LUNGS: There are increased lung markings in the left lung base. No other focal consolidating infiltr ates are seen. PLEURAL SPACE: No pleural effusion or pneumothorax. BONE:Within normal limits for the patient's age. OTHER FINDINGS:Normal. IMPRESSION: Increased lung markings in the left base. This may represent atelectasis. Pneumonia cannot be exclu ded. The lungs are otherwise clear. DATA REPOSITORY: RADIATION DOSE DELIVERED:
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
[2022-11-23] MEDS: Albuterol/Ipratropium 3 ML UPD VIAL 9 ML UPD (10:07)
[2022-11-23] MEDS: methylPREDNISolone SUCC 125 MG VIAL IVP (10:08)
[2022-11-23 10:12] LABS: Abs Immature Grans 0.03 10^3/uL (0.0-0.06); Absolute Basophil Count 0.06 10^3/uL (0.0-0.2); Absolute Eosinophil Count 0.02 10^3/uL (0.0-0.7); Absolute Lymphocyte Count 1.34 10^3/uL (1.2-3.4); Absolute Monocyte Count 0.97 10^3/uL (0.1-0.8); Absolute Neutrophil Count 5.64 10^3/uL (1.2-6.7); Basophils % 0.7; Eosinophils % 0.2; HCT 54.5 % (36.0-46.0); Immature Grans % 0.4; Lymphocytes % 16.6; MCH 27.9 pg (27.0-33.0); MCHC 31.2 % (32.0-36.0); MCV 89 fL (80-95); MPV 9.8 fL (8.0-11.0); Neutrophils % 70.1; Platelet Count 260 10^3/uL (130-400); RDW 14.2 % (11.7-14.6); RDW-SD 46.8 fL; WBC 8.06 10^3/uL (4.4-10.8)
[2022-11-23 10:16] LABS: BE 6 mmol/L (-2-3); HCO3 33 mmol/L (22-26); pH 7.29 (7.35-7.45); pO2 81 mmHg (80-105); sO2 96 % (95-98); tCO2 29 mmol/L (23-27)
[2022-11-23 10:18] LABS: Site Left Radial
[2022-11-23 10:19] LABS: FIO2L 8 L; pCO2 68 mmHg (35-45)
[2022-11-23 10:28] LABS: INR 1.1 (0.9-1.1); PTT Activated 34.4 sec (21.5-31.9); Prothrombin Time 11.1 sec (9.3-11.0)
[2022-11-23 10:36] LABS: ALT 11 U/L (14-59); AST 13 U/L (15-37); Albumin 3.5 g/dL (3.4-5.0); Alkaline Phosphatase 165 U/L (46-116); Anion Gap 4.2 mmol/L (3-11); BUN 9 mg/dL (7-18); Bilirubin, Total 0.3 mg/dL (0.2-1.0); CO2 33.8 mmol/L (21.0-32.0); CREATININE 1.1 mg/dL (0.55-1.02); Chloride 91 mmol/L (98-107); Estimated GFR 55.07 (mL/min/1.73m2); Glucose 133 mg/dL (74-106); NT-proBNP 1227 pg/mL (<300); Potassium 4.4 mmol/L (3.5-5.1); Sodium 129 mmol/L (136-145); Total Protein 8.5 g/dL (6.4-8.2)
[2022-11-23 10:38] LABS: Troponin I < 50 ng/L (<or=60)
[2022-11-23 10:41] LABS: Diff Comment Diff Reviewed; RBC Morphology Normal
[2022-11-23 10:54] LABS: COVID-19 PCR Negative (Negative); Influenza A PCR Negative (Negative); Influenza B PCR Negative (Negative); RSV PCR Negative (Negative)
[2022-11-23] MEDS: DOXYCYCLINE 100 MG in Normal Saline 100 ML IVPB ×2 (10:58→21:46)
[2022-11-23 11:01] LABS: Source Nasopharynx
[2022-11-23 11:18] LABS: D-Dimer 442 ng/mlFEU (<500)
[2022-11-23] MEDS: cefTRIAXone 2 GM/50 ML BAG IVPB (12:03)
[2022-11-23 13:12] LABS: BE (Venous) 4 mmol/L (-2-3); HCO3 (Venous) 30 mmol/L (23-28); O2 Sat (Venous) 89 %; TCO2 (Venous) 26 mmol/L (24-29); pCO2 (Venous) 60 mmHg (41-51); pH (Venous) 7.31 (7.31-7.41); pO2 (Venous) 56 mmHg
[2022-11-23] MEDS: Normal Saline Flush 10 ML SYR IVP (13:26)
[2022-11-23] MEDS: Pantoprazole 40 MG VIAL IVP (13:28)
[2022-11-23] MEDS: Enoxaparin 40 MG/0.4 ML SYR SC (13:28)
[2022-11-23] MEDS: Albuterol/Ipratropium 3 ML UPD VIAL UPD ×3 (13:37→19:40)
[2022-11-23 13:50] LABS: Troponin I < 50 ng/L (<or=60)
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
[2022-11-23 15:43] LABS: BE (Venous) 4 mmol/L (-2-3); HCO3 (Venous) 30 mmol/L (23-28); O2 Sat (Venous) 90 %; TCO2 (Venous) 27 mmol/L (24-29); pO2 (Venous) 60 mmHg
[2022-11-23 15:46] LABS: pCO2 (Venous) 61 mmHg (41-51)
[2022-11-23] MEDS: methylPREDNISolone SUCC 40 MG VIAL IVP (16:08)
--- NOTE | 2022-11-23 18:32 | RESPIRATORY ---
Pt. uses O2 at home 2L/min at night time only. DME is [facility].
[2022-11-23] MEDS: Normal Saline 500 ML 30 ML IV (21:46)
[2022-11-24] VITALS (41 sets, daily range): BP systolic 128–150; BP diastolic 51–70; PULSE 61–76; RESP 1–24; TEMP 31–37.3; O2SAT 88–98
[2022-11-24] MEDS: methylPREDNISolone SUCC 40 MG VIAL IVP ×2 (00:18→08:16)
[2022-11-24] MEDS: Normal Saline Flush 10 ML SYR IVP (00:19)
[2022-11-24 07:21] LABS: Abs Immature Grans 0.03 10^3/uL (0.0-0.06); Absolute Basophil Count 0.03 10^3/uL (0.0-0.2); Absolute Eosinophil Count 0.01 10^3/uL (0.0-0.7); Absolute Lymphocyte Count 1.14 10^3/uL (1.2-3.4); Absolute Monocyte Count 0.72 10^3/uL (0.1-0.8); Absolute Neutrophil Count 7.25 10^3/uL (1.2-6.7); Basophils % 0.3; Eosinophils % 0.1; HCT 50.7 % (36.0-46.0); HGB 16.1 g/dL (11.2-15.7); Immature Grans % 0.3; Lymphocytes % 12.4; MCH 27.6 pg (27.0-33.0); MCHC 31.8 % (32.0-36.0); MCV 87 fL (80-95); MPV 10.4 fL (8.0-11.0); Monocytes % 7.8; Neutrophils % 79.1; Platelet Count 264 10^3/uL (130-400); RBC 5.84 10^6/uL (3.93-5.22); RDW 13.8 % (11.7-14.6); RDW-SD 43.9 fL; WBC 9.18 10^3/uL (4.4-10.8)
[2022-11-24 07:43] LABS: ALT 14 U/L (14-59); AST 13 U/L (15-37); Albumin 3.2 g/dL (3.4-5.0); Alkaline Phosphatase 142 U/L (46-116); Anion Gap 4.5 mmol/L (3-11); BUN 14 mg/dL (7-18); Bilirubin, Total 0.3 mg/dL (0.2-1.0); CO2 30.5 mmol/L (21.0-32.0); CREATININE 0.9 mg/dL (0.55-1.02); Calcium 9.1 mg/dL (8.5-10.1); Chloride 91 mmol/L (98-107); Estimated GFR 70.07 (mL/min/1.73m2); Glucose 131 mg/dL (74-106); Potassium 4.8 mmol/L (3.5-5.1); Sodium 126 mmol/L (136-145); Total Protein 7.9 g/dL (6.4-8.2)
[2022-11-24] MEDS: Albuterol/Ipratropium 3 ML UPD VIAL UPD ×4 (07:46→20:00)
[2022-11-24] MEDS: Tiotropium/Olodaterol 10 PUFF INHALER 2 PUFF IH (07:47)
[2022-11-24] MEDS: amLODIPine 10 MG TAB PO (08:15)
[2022-11-24] MEDS: guaiFENesin 600 MG TABCR PO ×2 (08:15→19:30)
[2022-11-24] MEDS: cefTRIAXone 2 GM/50 ML BAG IVPB (08:15)
[2022-11-24] MEDS: Lisinopril 20 MG TAB 40 MG PO (08:16)
--- NOTE | 2022-11-24 09:19 | PGE_ITS ---
Date of Service Date of service: 11/24/22 Time of Service: 09:19 Assessment and Plan Assessment and plan (1) Respiratory failure with hypoxia and hypercapnia: Status: Acute Assessment and plan: continue Rocephin and doxycycline empiric treatment for bronchitis vs possible pneumonia, continue pulmonary toiletery, nebulized bronchodilators, encourage ambulation, consult P.T.; stable for transfer to med/surg; does not need telemetry; will change iv solumedrol to prednisone Professional time spent interviewing and examining patient, discussion of goals of care with hospital team (care management, nursing and consulting professionals) was 30 minutes. Qualifiers: Chronicity: chronic Qualified Code(s): J96.11 - Chronic respiratory failure with hypoxia; J96.12 - Chronic respiratory failure with hypercapnia (2) COPD exacerbation: Status: Acute Assessment and plan: as above (3) Pneumonia: Status: Acute Assessment and plan: as above (4) Sleep apnea: Status: Chronic (5) Essential hypertension: Status: Chronic Assessment and plan: continue home meds of lisinopril and amlodipine w/ BP holding parameters. Subjective Subjective Interval history since last seen: Patient is feeling better. Less dyspneic. tolerated walk w/ nursing and RT around the ICU this morning but did end walk w/ paroxysm of coughing. Productive of white mucous. She does not tolerate BIPAP mask well as she complains of it drying out her throat. We will try her on nasal CPAP at night and use HFNC during the day. I think she is stable enough to move to med/surg today. Exam Narrative Exam Narrative: Kira has plethoric appearance to her face, she is not in any acute respirartory distress, able to speak to me in complete sentences Lungs: scattered rhonchi and wheezes Heart: regular rate and rhythm Abdomen: obese, nondistended Extremities: no edema Objective Last Vital Signs Temp 36.9 C 11/24/22 07:15 Pulse 62 11/24/22 08:14 Resp 19 11/24/22 08:14 BP 149/52 H 11/24/22 08:14 Pulse Ox 91 L 11/24/22 08:14 Laboratory Results - last 24 hr 11/23/22 11/23/22 11/23/22 09:52 10:00 10:00 WBC RBC Hgb Hct MCV MCH MCHC RDW Plt Count MPV Immature Gran % Neutrophils % Lymphocytes % Monocytes % Eosinophils % Basophils % Nucleated RBC % Absolute Neutrophils Absolute Lymphocytes Absolute Monocytes Absolute Eosinophils Absolute Basophils RBC Morphology PT INR APTT Cancelled D-Dimer ABG Sample Site Left Radial ABG pH 7.29 L ABG pCO2 68 H* ABG pO2 81 ABG HCO3 33 H ABG Total CO2 29 H ABG O2 Saturation 96 ABG Base Excess 6 H VBG pH VBG pCO2 VBG pO2 VBG HCO3 VBG Total CO2 VBG O2 Saturation VBG Base Excess VBG Lactate Oxygen Liter Flow 8 Sodium Potassium Chloride Carbon Dioxide Anion Gap BUN Creatinine Est GFR (CKD-EPI 2020) Glucose Calcium Total Bilirubin AST ALT Alkaline Phosphatase Troponin I NT-Pro-B Natriuret Pep Total Protein Albumin COVID-19 Source Nasopharynx SARS-CoV-2 (PCR) Negative Influenza Type A (PCR) Negative Influenza Type B (PCR) Negative RSV (PCR) Negative 11/23/22 11/23/22 11/23/22 10:05 10:05 10:05 WBC RBC Hgb Hct MCV MCH MCHC RDW Plt Count MPV Immature Gran % Neutrophils % Lymphocytes % Monocytes % Eosinophils % Basophils % Nucleated RBC % Absolute Neutrophils Absolute Lymphocytes Absolute Monocytes Absolute Eosinophils Absolute Basophils RBC Morphology PT 11.1 H INR 1.1 APTT 34.4 H D-Dimer 442 ABG Sample Site ABG pH ABG pCO2 ABG pO2 ABG HCO3 ABG Total CO2 ABG O2 Saturation ABG Base Excess VBG pH VBG pCO2 VBG pO2 VBG HCO3 VBG Total CO2 VBG O2 Saturation VBG Base Excess VBG Lactate 1.0 Oxygen Liter Flow Sodium 129 L Potassium 4.4 Chloride 91 L Carbon Dioxide 33.8 H Anion Gap 4.2 BUN 9 Creatinine 1.1 H Est GFR (CKD-EPI 2020) 55.07 Glucose 133 H Calcium 9.0 Total Bilirubin 0.3 AST 13 L ALT 11 L Alkaline Phosphatase 165 H Troponin I < 50 NT-Pro-B Natriuret Pep 1227 H Total Protein 8.5 H Albumin 3.5 COVID-19 Source SARS-CoV-2 (PCR) Influenza Type A (PCR) Influenza Type B (PCR) RSV (PCR) 11/23/22 11/23/22 11/23/22 10:05 13:06 13:06 WBC 8.06 RBC 6.10 H Hgb 17.0 H Hct 54.5 H MCV 89 MCH 27.9 MCHC 31.2 L RDW 14.2 Plt Count 260 MPV 9.8 Immature Gran % 0.4 Neutrophils % 70.1 Lymphocytes % 16.6 Monocytes % 12.0 Eosinophils % 0.2 Basophils % 0.7 Nucleated RBC % 0.0 Absolute Neutrophils 5.64 Absolute Lymphocytes 1.34 Absolute Monocytes 0.97 H Absolute Eosinophils 0.02 Absolute Basophils 0.06 RBC Morphology Normal PT INR APTT D-Dimer ABG Sample Site ABG pH ABG pCO2 ABG pO2 ABG HCO3 ABG Total CO2 ABG O2 Saturation ABG Base Excess VBG pH 7.31 VBG pCO2 60 H VBG pO2 56 VBG HCO3 30 H VBG Total CO2 26 VBG O2 Saturation 89 VBG Base Excess 4 H VBG Lactate Oxygen Liter Flow Sodium Potassium Chloride Carbon Dioxide Anion Gap BUN Creatinine Est GFR (CKD-EPI 2020) Glucose Calcium Total Bilirubin AST ALT Alkaline Phosphatase Troponin I < 50 NT-Pro-B Natriuret Pep Total Protein Albumin COVID-19 Source SARS-CoV-2 (PCR) Influenza Type A (PCR) Influenza Type B (PCR) RSV (PCR) 11/23/22 11/24/22 11/24/22 15:35 06:12 06:12 WBC 9.18 RBC 5.84 H Hgb 16.1 H Hct 50.7 H MCV 87 MCH 27.6 MCHC 31.8 L RDW 13.8 Plt Count 264 MPV 10.4 Immature Gran % 0.3 Neutrophils % 79.1 Lymphocytes % 12.4 Monocytes % 7.8 Eosinophils % 0.1 Basophils % 0.3 Nucleated RBC % 0.0 Absolute Neutrophils 7.25 H Absolute Lymphocytes 1.14 L Absolute Monocytes 0.72 Absolute Eosinophils 0.01 Absolute Basophils 0.03 RBC Morphology PT INR APTT D-Dimer ABG Sample Site ABG pH ABG pCO2 ABG pO2 ABG HCO3 ABG Total CO2 ABG O2 Saturation ABG Base Excess VBG pH 7.30 L VBG pCO2 61 H* VBG pO2 60 VBG HCO3 30 H VBG Total CO2 27 VBG O2 Saturation 90 VBG Base Excess 4 H VBG Lactate Oxygen Liter Flow Sodium 126 L Potassium 4.8 Chloride 91 L Carbon Dioxide 30.5 Anion Gap 4.5 BUN 14 Creatinine 0.9 Est GFR (CKD-EPI 2020) 70.07 Glucose 131 H Calcium 9.1 Total Bilirubin 0.3 AST 13 L ALT 14 Alkaline Phosphatase 142 H Troponin I NT-Pro-B Natriuret Pep Total Protein 7.9 Albumin 3.2 L COVID-19 Source SARS-CoV-2 (PCR) Influenza Type A (PCR) Influenza Type B (PCR) RSV (PCR) Time Spent with Patient Time Spent with Patient: 25-34 minutes Time was spent: preparing to see the patient(eg.review tests), ordering medications,tests, procedures, referring, communicating with other health professional healthcare representative (Nursing staff), indepentently interpreting results, counseling the patient and care coordination
[2022-11-24] MEDS: DOXYCYCLINE 100 MG in Normal Saline 100 ML IVPB ×2 (10:16→22:28)
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
[2022-11-24] MEDS: predniSONE 20 MG TAB 60 MG PO (10:20)
[2022-11-24] MEDS: Enoxaparin 40 MG/0.4 ML SYR SC (11:50)
--- NOTE | 2022-11-24 14:45 | CHAPLAIN ---
Kira was sitting up in bed when I visited. She is listed as being connected to the [employer] in [facility], however she said her is a members and she has never joined. I explained my role and offered support. Kira's visited earlier today, but she was sleeping and he didn't wake her up. Kira is hoping he'll return this evening.
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
[2022-11-24 20:35] LABS: Legionella Ag Detection Urine Negative (Negative)
[2022-11-24 23:52] LABS: Streptococcus Pneumoniae Ag, U Negative (Negative)
[2022-11-25] VITALS (17 sets, daily range): BP systolic 128–152; BP diastolic 60–74; PULSE 56–67; RESP 5–20; TEMP 31–37; O2SAT 90–94
[2022-11-25 06:41] LABS: Abs Immature Grans 0.05 10^3/uL (0.0-0.06); Absolute Basophil Count 0.01 10^3/uL (0.0-0.2); Absolute Neutrophil Count 9.24 10^3/uL (1.2-6.7); Basophils % 0.1; Eosinophils % 0.2; HCT 47.1 % (36.0-46.0); HGB 15.4 g/dL (11.2-15.7); Immature Grans % 0.4; Lymphocytes % 13.5; MCH 28.1 pg (27.0-33.0); MCHC 32.7 % (32.0-36.0); MCV 86 fL (80-95); MPV 10.7 fL (8.0-11.0); Monocytes % 9.9; Neutrophils % 75.9; Platelet Count 277 10^3/uL (130-400); RBC 5.49 10^6/uL (3.93-5.22); RDW 13.7 % (11.7-14.6); RDW-SD 43.3 fL; WBC 12.18 10^3/uL (4.4-10.8)
[2022-11-25] MEDS: Albuterol/Ipratropium 3 ML UPD VIAL UPD ×4 (09:14→19:59)
[2022-11-25] MEDS: Tiotropium/Olodaterol 10 PUFF INHALER 2 PUFF IH (09:24)
[2022-11-25] MEDS: Lisinopril 20 MG TAB 40 MG PO (09:30)
[2022-11-25] MEDS: amLODIPine 10 MG TAB PO (09:31)
[2022-11-25] MEDS: Pantoprazole 40 MG TABCR PO (09:34)
[2022-11-25] MEDS: predniSONE 20 MG TAB 40 MG PO (09:34)
[2022-11-25] MEDS: guaiFENesin 600 MG TABCR PO ×2 (09:35→20:25)
[2022-11-25 09:40] LABS: Absolute Eosinophil Count 0.02 10^3/uL (0.0-0.7); Absolute Lymphocyte Count 1.64 10^3/uL (1.2-3.4); Absolute Monocyte Count 1.21 10^3/uL (0.1-0.8)
[2022-11-25 09:41] LABS: CREATININE 0.7 mg/dL (0.55-1.02); Calcium 9.2 mg/dL (8.5-10.1); Estimated GFR 94.73 (mL/min/1.73m2); Glucose 113 mg/dL (74-106)
[2022-11-25 09:42] LABS: Chloride 89 mmol/L (98-107)
[2022-11-25 09:43] LABS: C-Reactive Protein 0.62 mg/dL (0.0-0.3); Sodium 124 mmol/L (136-145)
[2022-11-25 09:44] LABS: Magnesium 1.8 mg/dL (1.8-2.4)
[2022-11-25] MEDS: cefTRIAXone 2 GM/50 ML BAG IVPB (09:51)
[2022-11-25] MEDS: DOXYCYCLINE 100 MG in Normal Saline 100 ML IVPB ×2 (10:38→21:57)
[2022-11-25 11:01] LABS: BUN 16 mg/dL (7-18)
--- NOTE | 2022-11-25 11:31 | PTTR_ITS ---
PT Notes Visit Reasons: acute hypoxic/hypercarbic resp. failure Inpatient Physical Therapy Treatment Note [facility] Date: 11/25/22 PRECAUTIONS: Fall, standard, activity as tolerated SUBJECTIVE: Patient reports she is ready to go home. OBJECTIVE: Patient long sitting in bed, agreeable to therapy. Son also present. Receiving 10 L/m O2 AFTERNOON: sitting cross legged in bed, agreeable to therapy. Son not present.?Receiving 5 L/m O2?PAIN: none reported ?VITALS: monitored by nursing staff ?BED MOBILITY/TRANSFERS?Rolling L/R: not assessed Supine-sit: not assessed ? Sit-supine: not assessed ? Sit-stand: not assessed ?AFTERNOON: Independent ? Stand-sit: not assessed ? AFTERNOON: Independent? Bed-Chair: not assessed ?AFTERNOON: Independent ? Chair-bed: not assessed AFTERNOON: Independent ?Therapeutic Exercises ([id number]): Direct one-on-one instruction in therapeutic exercises to develop strength, endurance, range of motion and flexibility. ? Exercises HEP established per instructions from DPT Mickie Mccoy, printed for and reviewed with patient. Access Code: [email or web address] URL: [email or web address] Date: 11/25/2022 Prepared by: Camryn Puente Exercises - Shoulder Flexion and Extension with Coordinated Breathing - 1 x daily - 7 x weekly - 1 sets - 5 reps - Seated March - 1 x daily - 7 x weekly - 1 sets - 10 reps - Horizontal Shoulder Abduction and Adduction with Coordinated Breathing - 1 x daily - 7 x weekly - 1 sets - 5 reps - Seated Long Arc Quad - 1 x daily - 7 x weekly - 1 sets - 10 reps - Seated Shoulder PNF D2 Extension - 1 x daily - 7 x weekly - 1 sets - 5 reps - Seated Hip Abduction - 1 x daily - 7 x weekly - 1 sets - 10 reps ?Ambulation ? Assistive Device: none ? Weight bearing: full Assist: SBA, help managing high flow O2 and IV lines ? Distance:? 10 feet, sit, 10 feet? AFTERNOON: 300 feet without rest or AD? Deviation: stooped posture, wide NARA ?AFTERNOON: better posture, more normal NARA, gait largely unremarkable.? Provided skilled instruction in proper exercise performance Provided skilled manual cues to facilitate proper muscle recruitment and/or form. ASSESSMENT:? Patient tolerated therapy well, no report of SOB, no LOB. ?PLAN: Continue global strengthening per plan of care until patient is medically cleared for discharge. Treatment code / time: 30 minutes beginning at 11:19 and 10 minutes beginning at 15:30 for a total of 40 minutes for today
[2022-11-25] MEDS: Enoxaparin 40 MG/0.4 ML SYR SC (11:50)
--- NOTE | 2022-11-25 15:49 | PGE_ITS ---
Date of Service Date of service: 11/25/22 Time of Service: 15:49 Assessment and Plan Assessment and plan (1) Respiratory failure with hypoxia and hypercapnia: Status: Acute Assessment and plan: Continue prednisone 40 mg daily along with DuoNeb treatments qid as well as her home long-acting beta agonist long-acting muscarinic agent. Continue oxygen support. Encourage cough and deep breathing with use of Acapella and incentive spirometry. Continue Rocephin and doxycycline. Anticipate discharge home tomorrow. Professional time spent interviewing and examining patient, discussion of goals of care with hospital team (care management, nursing and consulting professionals) was 30 minutes. Qualifiers: Chronicity: chronic Qualified Code(s): J96.11 - Chronic respiratory failure with hypoxia; J96.12 - Chronic respiratory failure with hypercapnia (2) COPD exacerbation: Status: Acute Assessment and plan: as above (3) Pneumonia: Status: Acute Assessment and plan: as above Qualifiers: Pneumonia type: due to unspecified organism Laterality: left Lung location: lower lobe of lung Qualified Code(s): J18.9 - Pneumonia, unspecified organism (4) Sleep apnea: Status: Chronic Assessment and plan: Patient needs to be evaluated for nasal CPAP she has been intolerant of using BiPAP mask. Qualifiers: Sleep apnea type: obstructive Qualified Code(s): G47.33 - Obstructive sleep apnea (adult) (pediatric) (5) Essential hypertension: Status: Chronic Assessment and plan: continue home meds of lisinopril and amlodipine w/ BP holding parameters. Subjective Subjective Interval history since last seen: Kira is doing better. Less dyspnea. She walked for P.T and nursing w/ her oxygen and did not fatigue. She has moist cough that is now more productive. No fevers. Exam Narrative Exam Narrative: Kira is alert and oriented x 3 She is not acutely dyspneic able to talk in complete sentences No accessory respiratory muscle use Lungs with scattered expiratory wheezes no rales Heart regular rate and rhythm Abdomen soft nondistended nontender Extremities without peripheral cyanosis or edema Objective Last Vital Signs Temp 36.1 C L 11/25/22 11:18 Pulse 61 11/25/22 12:50 Resp 18 11/25/22 12:43 BP 143/69 H 11/25/22 11:18 Pulse Ox 94 11/25/22 12:56 Laboratory Results - last 24 hr 11/23/22 11/23/22 11/25/22 15:35 15:37 05:52 WBC 12.18 H RBC 5.49 H Hgb 15.4 Hct 47.1 H MCV 86 MCH 28.1 MCHC 32.7 RDW 13.7 Plt Count 277 MPV 10.7 Immature Gran % 0.4 Neutrophils % 75.9 Lymphocytes % 13.5 Monocytes % 9.9 Eosinophils % 0.2 Basophils % 0.1 Nucleated RBC % 0.0 Absolute Neutrophils 9.24 H Absolute Lymphocytes 1.64 Absolute Monocytes 1.21 H Absolute Eosinophils 0.02 Absolute Basophils 0.01 Sodium 124 L Potassium 5.0 Chloride 89 L Carbon Dioxide 30.0 Anion Gap 5.0 BUN 16 Creatinine 0.7 Est GFR (CKD-EPI 2020) 94.73 Glucose 113 H Calcium 9.2 Magnesium 1.8 C-Reactive Protein 0.62 H Urine Legionella Ag Negative Ur Strep pneumoniae Ag Negative Time Spent with Patient Time Spent with Patient: 25-34 minutes Time was spent: preparing to see the patient(eg.review tests), ordering medications,tests, procedures, referring, communicating with other health career and technology education teacher, indepentently interpreting results, counseling the patient and care coordination
[2022-11-25 17:45] LABS: Mycoplasma Pneumoniae PCR Negative (Negative); Specimen source Sputum
--- NOTE | 2022-11-25 17:49 | PDOC.CMPRO ---
Date of service: 11/25/22 Time of Service: 17:49 Care Management Progress Note Progress Note Text Progress Note Text: S/O: Kira was sitting up in bed when CM met with her. She stated that she is feeling much better than when she arrived, and that she hopes to discharge home soon. She reported that her and grand daughter brought her garcia; she speaks fondly about her , her many grandchildren and great grandchildren. She stated that she is on 2LO2 at baseline, and is currently on 4LO2, although she stated that she normally only uses the O2 at night, when home. CM will continue to follow. A: Kira is a 67 year old female admitted to [facility] on 11/23/22 for acute hypoxic/hypercarbic respiratory failure. P: Kira will return home with no anticipated services once medically cleared. Her will drive her home via private vehicle. She will follow up with her PCP and discharge plan of care. CM will continue to follow.
[2022-11-26] VITALS (11 sets, daily range): BP systolic 123–151; BP diastolic 66–72; PULSE 55–89; RESP 4–32; TEMP 36.1–36.6; O2SAT 81–98
[2022-11-26] MEDS: Pantoprazole 40 MG TABCR PO (07:53)
[2022-11-26] MEDS: Lisinopril 20 MG TAB 40 MG PO (09:12)
[2022-11-26] MEDS: guaiFENesin 600 MG TABCR PO (09:13)
[2022-11-26] MEDS: predniSONE 20 MG TAB 40 MG PO (09:13)
[2022-11-26] MEDS: amLODIPine 10 MG TAB PO (09:13)
[2022-11-26] MEDS: cefTRIAXone 2 GM/50 ML BAG IVPB (09:16)
[2022-11-26] MEDS: Albuterol/Ipratropium 3 ML UPD VIAL UPD ×2 (09:20→15:55)
[2022-11-26] MEDS: Tiotropium/Olodaterol 10 PUFF INHALER 2 PUFF IH (09:20)
--- NOTE | 2022-11-26 09:54 | PDOC.CMPRO ---
Date of service: 11/26/22 Time of Service: 09:54
[2022-11-26] MEDS: DOXYCYCLINE 100 MG in Normal Saline 100 ML IVPB (10:17)
[2022-11-26] MEDS: Enoxaparin 40 MG/0.4 ML SYR SC (11:39)
--- NOTE | 2022-11-26 13:53 | PT.INTREAT ---
Date of service: 11/26/22 Time of Service: 10:00 PT Notes Visit Reasons: acute hypoxic/hypercarbic resp. failure Inpatient Physical Therapy Treatment Note [facility] Date: 11/26/22 PRECAUTIONS: Fall, standard, activity as tolerated ?SUBJECTIVE: Patient reports being eager to go home, as she feels fine. OBJECTIVE: sitting up on bed, agreeable to therapy. Receiving 4L/m supplemental O2 AFTERNOON: Same, on 3L O2. Respiratory Therapist Megan mejía. ? PAIN: none reported. ?VITALS: SaO2 92% on 3L before ambulation. Patient appeared to desat to 75%, however this happened so abruptly (under 10 seconds) and recovered so abruptly (under 30 seconds) that Megan stated it was likely a faulty read, rather than an accurate representation. BED MOBILITY/TRANSFERS? Rolling L/R: Independent Supine-sit: Independent ? Sit-supine: Independent ? Sit-stand: Independent ? Stand-sit: Independent ? Bed-Chair: Independent ? Chair-bed: Independent Therapeutic Exercises ([id number]): Direct one-on-one instruction in therapeutic exercises to develop strength, endurance, range of motion and flexibility. ? Exercises: Reviewed HEP as established yesterday. Please see previous note. Ambulation ? Assistive Device: none ? Weight bearing: full Assist: SBA ? Distance:? 300 feet, six stairs AFTERNOON 500 feet ? Deviation: Gait unremarkable ? Provided skilled instruction in proper exercise performance Provided skilled manual cues to facilitate proper muscle recruitment and/or form: cueing to facilitate proper pacing of exercises, especially deep breathing exercises. ASSESSMENT:? Patient tolerated therapy well, returned to sit on bed at end of therapy session. PLAN: Continue global strengthening per plan of care until patient is medically cleared for discharge. TREATMENT CODE/TIME: 12 minutes beginning at 10:00 and 24 minutes beginning at 13:07 for a total of 36 minutes today
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
--- NOTE | 2022-11-26 15:40 | CMDISCH_ITS ---
Date of service: 11/26/22 Time of Service: 15:40 LACE Index Scoring Tool Questions: Length of Stay (in days): 3 Was the patient admitted via the E.D.?: Yes Comorbidities: Congestive Heart Failure and Chronic Pulmonary Disease E.D. Visits: 1 Answers: Total Score: 12 Risk of Readmission: High Risk Care Management Discharge Plan Reason for Hospitalization: Respiratory failure with hypoxia Discharge Plan: Kira will be discharged home with no new services. PT recommended home health PT but Kira declined the service. Her oxygen needs have increased so a new prescription was sent to [facility] to reflect the needed increase. Kira will follow up with her community providers and plan of care and transport with family. Patient/Family Education Needs: Review of discharge instructions, limitations, activity, follow up plan, discuss Ask Me Three Services Needed at Discharge: Oxygen Therapy
--- NOTE | 2022-11-26 16:11 | RESPIRATORY ---
RT spoke with [facility], [place] and patients home prescription currently states she has been approved to used oxygen 06/09. On previous days visit by RT, patient stated she only uses 2L at night. Today, RT performed an oxygen walk on patient and found her to need 2-3L at rest and up to 4L with ambulation. A new RX has been sent to [facility], [place] and delivery of tanks for portability has been set up as patient stated she only has one E-cyclinder and cart at home.
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
== END 2022-11-26 17:23 | disposition home or self-care (01) | DRG 193 ==
LOC: ER 12:43 → ICU 13:00 → MS 11-24 23:38
PROVIDERS: Admitting Provider Internal Medicine; Emergency Provider Student in an Organized Health Care Education/Training Program; PCP Family Medicine; Visit Provider Internal Medicine
DX: J18.9 Pneumonia, unspecified organism (principal); J96.01 Acute respiratory failure with hypoxia; J96.02 Acute respiratory failure with hypercapnia; J44.0 Chronic obstructive pulmonary disease with (acute) lower respiratory infection; I50.30 Unspecified diastolic (congestive) heart failure; J44.1 Chronic obstructive pulmonary disease with (acute) exacerbation; G47.30 Sleep apnea, unspecified; I10 Essential (primary) hypertension; F17.210 Nicotine dependence, cigarettes, uncomplicated; G43.109 Migraine with aura, not intractable, without status migrainosus; J32.9 Chronic sinusitis, unspecified; R73.03 Prediabetes; N32.81 Overactive bladder; H90.3 Sensorineural hearing loss, bilateral; F41.9 Anxiety disorder, unspecified; E66.01 Morbid (severe) obesity due to excess calories; R91.8 Other nonspecific abnormal finding of lung field; K21.9 Gastro-esophageal reflux disease without esophagitis; Z87.11 Personal history of peptic ulcer disease; F32.A Depression, unspecified; M51.16 Intervertebral disc disorders with radiculopathy, lumbar region; E78.5 Hyperlipidemia, unspecified; F43.10 Post-traumatic stress disorder, unspecified; Z68.32 Body mass index [BMI] 32.0-32.9, adult
CPT/HCPCS: 36415; 80048; 80053; 82805; 87040; 87449; 87637; 93005; 93306; 94618; 94640; 96365; 96367; 96375; 96376; 97110; 97162; 99232; 99291; J1650; 36600; 71045; 83605; 83735; 83880; 84484; 85025; 85379; 85610; 85730; 86140; 87070; 87205; 87581; 87899; 93010; 94660; 94664; 94667; 94668; 94760; 99239; J2930; J7512; J7620

== ENCOUNTER → 2023-01-05 09:13 | Outpatient (BNVA) | payer MEDICARE, MEDICAID, SELFPAY | PROVIDERS: PCP Family Medicine; Referring Provider Family Medicine; Visit Provider Physical Therapy Assistant | DX: L82.1 Other seborrheic keratosis (principal) | CPT/HCPCS: 99213 ==

== ENCOUNTER 2023-06-09 17:57 | Outpatient (REF) | payer MEDICARE, SELFPAY ==
[2023-06-09 14:54] LABS: Abs Immature Grans 0.03 10^3/uL (0.0-0.06); Absolute Basophil Count 0.07 10^3/uL (0.0-0.2); Absolute Eosinophil Count 0.13 10^3/uL (0.0-0.7); Absolute Lymphocyte Count 2.57 10^3/uL (1.2-3.4); Absolute Monocyte Count 0.75 10^3/uL (0.1-0.8); Absolute Neutrophil Count 5.59 10^3/uL (1.2-6.7); Basophils % 0.8; Eosinophils % 1.4; HCT 55.7 % (36.0-46.0); HGB 17.8 g/dL (11.2-15.7); Immature Grans % 0.3; Lymphocytes % 28.1; MCH 29.2 pg (27.0-33.0); MCV 91 fL (80-95); MPV 10.8 fL (8.0-11.0); Monocytes % 8.2; Neutrophils % 61.2; Platelet Count 225 10^3/uL (130-400); RDW 14.5 % (11.7-14.6); RDW-SD 48.8 fL; WBC 9.14 10^3/uL (4.4-10.8)
[2023-06-09 21:45] LABS: ALT 14 U/L (14-59); AST 11 U/L (15-37); Albumin 3.7 g/dL (3.4-5.0); Alkaline Phosphatase 155 U/L (46-116); Anion Gap 11.4 mmol/L (3-11); BUN 15 mg/dL (7-18); Bilirubin, Total 0.3 mg/dL (0.2-1.0); CO2 27.6 mmol/L (21.0-32.0); CREATININE 0.8 mg/dL (0.55-1.02); Calcium 8.7 mg/dL (8.5-10.1); Calculated LDL 90 mg/dL (<100); Chloride 101 mmol/L (98-107); Cholesterol 172 mg/dL (<200); Estimated GFR 80.21 (mL/min/1.73m2); Glucose 111 mg/dL (74-106); HDL Cholesterol 54 mg/dL (40-60); Potassium 4.2 mmol/L (3.5-5.1); Sodium 140 mmol/L (136-145); Total Protein 7.4 g/dL (6.4-8.2); Triglyceride 142 mg/dL (<150)
== END 2023-06-09 17:58 | disposition home or self-care (01) ==
LOC: NCHCN 17:57
PROVIDERS: Visit Provider Student in an Organized Health Care Education/Training Program
DX: I10 Essential (primary) hypertension (principal); E78.5 Hyperlipidemia, unspecified
CPT/HCPCS: 80053; 80061; 84443; 85025

== ENCOUNTER 2023-06-16 05:09 | Outpatient (CLI) | payer MEDICARE, SELFPAY ==
[2023-06-16 14:40] LABS: Abs Immature Grans 0.02 10^3/uL (0.0-0.06); Absolute Eosinophil Count 0.22 10^3/uL (0.0-0.7); Absolute Lymphocyte Count 3.15 10^3/uL (1.2-3.4); Absolute Monocyte Count 0.77 10^3/uL (0.1-0.8); Absolute Neutrophil Count 5.54 10^3/uL (1.2-6.7); Eosinophils % 2.2 %; HGB 18.2 g/dL (11.2-15.7); Immature Grans % 0.2 %; Lymphocytes % 32.1 %; MCH 29.1 pg (27.0-33.0); MCHC 31.7 % (32.0-36.0); MCV 92 fL (80-95); MPV 9.7 fL (8.0-11.0); Monocytes % 7.9 %; Neutrophils % 56.6 %; Platelet Count 244 10^3/uL (130-400); RBC 6.25 10^6/uL (3.93-5.22); RDW 14.3 % (11.7-14.6); RDW-SD 48.5 fL
[2023-06-16 15:09] LABS: HCT 57.5 % (36.0-46.0)
[2023-06-16 15:10] LABS: Diff Comment Diff Reviewed; RBC Morphology Normal
[2023-06-16 15:50] LABS: ALT 12 U/L (14-59); AST 12 U/L (15-37); Albumin 3.5 g/dL (3.4-5.0); Alkaline Phosphatase 161 U/L (46-116); Anion Gap 5.9 mmol/L (3-11); BUN 10 mg/dL (7-18); Bilirubin, Total 0.3 mg/dL (0.2-1.0); CO2 34.1 mmol/L (21.0-32.0); CREATININE 0.9 mg/dL (0.55-1.02); Calcium 8.9 mg/dL (8.5-10.1); Chloride 100 mmol/L (98-107); Estimated GFR 69.64 (mL/min/1.73m2); Glucose 121 mg/dL (74-106); Potassium 3.7 mmol/L (3.5-5.1); Sodium 140 mmol/L (136-145); Total Protein 7.8 g/dL (6.4-8.2)
[2023-06-17 09:13] LABS: GGT 10 U/L (5-55)
== END 2023-06-16 05:10 | disposition home or self-care (01) ==
LOC: LBO 05:10
PROVIDERS: Visit Provider Student in an Organized Health Care Education/Training Program
DX: D75.1 Secondary polycythemia (principal); R74.8 Abnormal levels of other serum enzymes
CPT/HCPCS: 36415; 80053; 82977; 85025

== ENCOUNTER 2023-06-20 11:21 | Outpatient (REF) | payer MEDICARE, SELFPAY ==
[2023-06-20 12:05] LABS: Bilirubin Negative (Negative); Blood Negative (Negative); Clarity Clear (Clear); Glucose Negative (Negative); Ketones Negative (Negative); Leukocyte Esterase Small (Negative); Nitrite Negative (Negative); Specific Gravity 1.015 (1.005-1.025); Urobilinogen 0.2 mg/dL (Up to 0.2); pH 5.5 (5-8)
[2023-06-20 12:12] LABS: Bacteria Rare HPF (Negative); C & S Indicated? No/Sq. Contamination; Casts Negative LPF (Negative); Crystals Negative HPF (Negative); Epithelial Cells Moderate HPF (Negative); Mucus Negative (Negative); RBC Negative HPF (0-2)
== END 2023-06-20 11:22 | disposition home or self-care (01) ==
LOC: NCHCN 11:21
PROVIDERS: PCP Student in an Organized Health Care Education/Training Program; Visit Provider Student in an Organized Health Care Education/Training Program
DX: D75.1 Secondary polycythemia (principal)
CPT/HCPCS: 81003; 81015

== ENCOUNTER 2023-06-27 18:45 | Emergency (ER) | payer MEDICARE, MEDICAID, SELFPAY ==
[2023-06-27 18:52] VITALS: BP 172/90; PULSE 67; RESP 20; TEMP 36.8; O2SAT 90
--- NOTE | 2023-06-27 19:00 | DI.CT_ITS ---
Exam(s) CT CHEST/ABD/PEL W EXAM: CT CHEST/ABD/PEL W CLINICAL HISTORY: left sided pain s/p fall down stairs. TECHNIQUE: Imaging Protocol: Axial computed tomography images with coronal and sagittal reformatted images were created and reviewed CONTRAST MATERIAL: Intravenous: Omnipaque 350 Contrast volume:100 ml Oral: None COMPARISON: CT ABD PELVIS WITH CONTRAST from 04/11/[address] CHEST LUNG CANCER SCREEN from 06/29/2022 FINDINGS: CHEST: LUNGS: No evidence of infiltrate or lung contusion or pleural effusion nor pneumothorax. Mild benign -appearing increased markings are noted in the lingular segment of the left lung.. There is a small 2-3 millimeter nodule in left upper [place] [address]-6 year ago. Mild benign-appearing pleural thickening in the lateral basal segment of the left lower lobe is unchanged from June 2022. MEDIASTINUM: No evidence of sternal fracture or mediastinal hematoma. No hilar nor mediastinal adeno zachariah. Visualized thyroid unremarkable. CARDIAC: Heart size is normal.There is a small pericardial effusion now evident. Maximum thickness i s 5 millimeters at the apex level. Thoracic aorta is unremarkable. Normal size. No dissection. OSSEOUS: No fractures. No osseous lesions.No rib fractures.. ABDOMEN: No ascites and no evidence of mesenteric nor bowel wall hematoma. No significant subcutaneous bruisi ng evident. LIVER: No laceration. No incidental lesions. Mild prominence of intrahepatic ducts both lobes. GALLBLADDER/BILIARY: Gallbladder is again noted be surgically absent. CBD is not dilated. PANCREAS: No evidence of pancreatic mass nor dilatation of the pancreatic duct. SPLEEN: Spleen size is upper normal. No laceration evident. No lesions. Splenic and portal veins a re patent. ADRENALS: There is a E nodule in left adrenal gland which measures 2.5 by 2.2 cm by 3 cm craniocaudal . Small nodule also noted at the genu of the opposite-right adrenal gland measuring 1 cm x 1 cm. Th corey are relatively stable findings in the adrenal glands when compared to CT scans dating back to at least 2018. Therefore most probably benign adenomas. KIDNEYS: Small benign cysts in both kidneys. The largest is in the anterior cortex of the right kidn ey and measures 4 by 3 cm. Although other cysts measure less than 1 cm. Do not require further work up.. No solid renal masses. No calculi. No hydronephrosis. No hydroureter. ABDOMINAL AORTA: The abdominal aorta is atherosclerotic and there is again noted a fusiform infrarena l abdominal aortic aneurysm which exhibits maximum diameter of 3.2 cm. Slightly larger than 2018. N o evidence of leak. Iliac arteries are not dilated. Also no dissection of the aorta and iliac arter ies. LYMPH NODES: There is no retroperitoneal nor paraaortic adenopathy. ABDOMINAL WALL: No evidence of significant anterior abdominal wall nor inguinal hernia. GI: There is no evidence of bowel obstruction. PELVIS: LYMPH NODES: There is no intrapelvic nor inguinal adenopathy. GI: No evidence of appendicitis.No evidence of sigmoid diverticulitis. URINARY BLADDER: There is mild uniform thickening of the urinary bladder wall. No distinct mass. No intraluminal radiopaque calculi. REPRODUCTIVE: Uterus is surgically absent. There are no abnormal adnexal masses nor free fluid in th e pelvis. OSSEOUS: No fractures. No compression fractures. No sacral fracture. No osseous lesions. IMPRESSION: 1. No acute significant trauma findings in the chest, abdomen pelvis, 2. Other incidental findings as above, including an infrarenal abdominal aortic aneurysm with maximum diameter of 3.2 cm. There is no aneurysmal dilatation of the iliac arteries. 3. Stable bilateral left larger than right adrenal nodules, exhibiting minimal change when compared t o CT studies dating back to March 2017. 4. There is a small pericardial effusion. Maximum thickness is 5 mm. 5. No fractures evident. RADIATION DOSE DELIVERED: 1,567.93mGy.cm Total DLP DATA REPOSITORY: All CT scans at this facility are submitted to the National Radiology Data Registry (NRDR) Dose Index Registry (DIR) with the [employer] (ACR). RADIATION OPTIMIZATION: All CT scans at this facility use at least one of these dose optimization te chniques: automated exposure control; mA and/or kV adjustment per patient size (includes targeted exa ms where dose is matched to clinical indication); or iterative reconstruction.
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
[2023-06-27] MEDS: Normal Saline - Diluent 50 ML VIAL IJ (19:32)
[2023-06-27 19:33] LABS: Abs Immature Grans 0.05 10^3/uL (0.0-0.06); Absolute Basophil Count 0.11 10^3/uL (0.0-0.2); Absolute Eosinophil Count 0.22 10^3/uL (0.0-0.7); Absolute Lymphocyte Count 3.06 10^3/uL (1.2-3.4); Absolute Monocyte Count 0.78 10^3/uL (0.1-0.8); Absolute Neutrophil Count 5.78 10^3/uL (1.2-6.7); Basophils % 1.1 %; Eosinophils % 2.2 %; HGB 18.6 g/dL (11.2-15.7); Immature Grans % 0.5 %; Lymphocytes % 30.6 %; MCH 29.3 pg (27.0-33.0); MCHC 32.3 % (32.0-36.0); MCV 91 fL (80-95); MPV 9.5 fL (8.0-11.0); Monocytes % 7.8 %; Neutrophils % 57.8 %; Platelet Count 328 10^3/uL (130-400); RBC 6.34 10^6/uL (3.93-5.22); RDW 14.6 % (11.7-14.6); RDW-SD 48.4 fL
[2023-06-27] MEDS: HYDROmorphone 2 MG/ML SYR 0.5 MG IVP (19:33)
[2023-06-27] MEDS: Omnipaque 350 MG/ML 100 ML BTL IJ (19:37)
[2023-06-27] MEDS: Normal Saline Flush 10 ML SYR IVP (19:38)
[2023-06-27 19:39] LABS: HCT 57.5 % (36.0-46.0)
--- NOTE | 2023-06-27 19:41 | DI.CT_ITS ---
Exam(s) CT HEAD CERVICAL SPINE WO EXAM: CT HEAD CERVICAL SPINE WO CLINICAL HISTORY: fall, pain. TECHNIQUE: Imaging Protocol: Axial computed tomography images with coronal and sagittal reformatted images were created and reviewed COMPARISON: CT CT BRAIN NECK CTA from 01/04/2020 MR MR BRAIN WO/W from 01/08/2022 Brain MRI study 01/08/2022. FINDINGS: BRAIN: There are no skull fractures nor fluid in the visualized paranasal sinuses. No evidence of intracranial hemorrhage. However, the previously described dural-based left frontal p robable meningioma has further increased in size, presently measuring 3.5 cm AP by 3 cm wide by by 2. 6 cm cephalocaudal and there is some mass effect on adjacent frontal sulci with the face mint of cody onal sulci along the anterior left frontal region. CERVICAL SPINE: There is no evidence of fracture nor listhesis. No significant prevertebral soft tissue swelling. There is chronic disc space narrowing at C5-6 and C6-7 levels. Only mild facet joint degenerative ch anges. There is no significant facet joint malalignment. No significant osseous lesions evident. IMPRESSION: No acute intracranial hemorrhage. No skull fractures. However, the previously described left fronta l dural-based extra-axial lesion has further increased in size causing increased regional mass effect . Measurements as above. This is most probably a meningioma. No evidence of cervical spine fracture, malalignment, nor acute compromise of the cervical spinal can al. RADIATION DOSE DELIVERED: 1,190.44mGy.cm Total DLP DATA REPOSITORY: All CT scans at this facility are submitted to the National Radiology Data Registry (NRDR) Dose Index Registry (DIR) with the [employer] (ACR). RADIATION OPTIMIZATION: All CT scans at this facility use at least one of these dose optimization te chniques: automated exposure control; mA and/or kV adjustment per patient size (includes targeted exa ms where dose is matched to clinical indication); or iterative reconstruction.
[2023-06-27 19:45] LABS: INR 1.1 (0.9-1.1); PTT Activated 31.4 sec (23.6-32.8); Prothrombin Time 10.7 sec (9.1-11.1)
[2023-06-27 19:48] LABS: ALT 14 U/L (14-59); AST 11 U/L (15-37); Albumin 3.8 g/dL (3.4-5.0); Alkaline Phosphatase 171 U/L (46-116); Anion Gap 6.2 mmol/L (3-11); BUN 10 mg/dL (7-18); Bilirubin, Total 0.3 mg/dL (0.2-1.0); CO2 32.8 mmol/L (21.0-32.0); CREATININE 0.9 mg/dL (0.55-1.02); Calcium 8.9 mg/dL (8.5-10.1); Chloride 98 mmol/L (98-107); Diff Comment RBC Morph Reviewed; Estimated GFR 69.64 (mL/min/1.73m2); Glucose 108 mg/dL (74-106); Lipase 32 U/L (16-77); Magnesium 1.9 mg/dL (1.8-2.4); Potassium 4.6 mmol/L (3.5-5.1); RBC Morphology Normal; Sodium 137 mmol/L (136-145); Total Protein 8.4 g/dL (6.4-8.2)
[2023-06-27 20:01] VITALS: BP 117/48; PULSE 62; RESP 16; O2SAT 86
--- NOTE | 2023-06-27 20:09 | DI.VRAD_ITS ---
PROCEDURE INFORMATION: Exam: CT Head Without Contrast Exam date and time: 06/27/2023 7:38 PM Age: 68 years old Clinical indication: Injury or trauma; Fall; Blunt trauma (contusions or hematomas); Consciousness not specified; Injury date: 06/27/23; Patient HX: Fell down stairs, pain TECHNIQUE: Imaging protocol: Computed tomography of the head without contrast. Radiation optimization: All CT scans at this facility use at least one of these dose optimization techniques: automated exposure control; mA and/or kV adjustment per patient size (includes targeted exams where dose is matched to clinical indication); or iterative reconstruction. COMPARISON: MR BRAIN WO/W 01/08/2022 1:05 PM FINDINGS: Brain: Slight prominence of cerebral sulci reflects mild cerebral atrophy. Hyperdense extra-axial mass overlying the anteromedial left frontal pole is again identified and now measures up to approximately 4 cm in maximum oblique cross-sectional dimension on coronal images (see image 26, series 8), its appearance again consistent with probable meningioma. There is associated regional effacement of sulci along the anterior left frontal pole and no other intracranial masses are detected. Brainstem and cerebellum are stable in appearance and there is no evidence of acute transcortical infarction or recent intracranial hemorrhage. Cerebral ventricles: No midline shift or hydrocephalus. Paranasal sinuses: Grossly clear throughout. Mastoid air cells: Grossly clear bilaterally. Bones: Bony calvarium and skull base are intact and no acute fractures are detected. Soft tissues: Unremarkable. IMPRESSION: Mild cerebral atrophy with probable meningioma again seen overlying the anteromedial left frontal pole with associated regional mass effect as above. There is no evidence of acute transcortical infarction, recent intracranial hemorrhage or hydrocephalus. No acute fractures are detected. PROCEDURE INFORMATION: Exam: CT Cervical Spine Without Contrast Exam date and time: 06/27/2023 7:38 PM Age: 68 years old Clinical indication: Injury or trauma; Fall; Blunt trauma (contusions or hematomas); Consciousness not specified; Injury date: 06/27/23; Patient HX: Fell down stairs, pain TECHNIQUE: Imaging protocol: Computed tomography of the cervical spine without contrast. Radiation optimization: All CT scans at this facility use at least one of these dose optimization techniques: automated exposure control; mA and/or kV adjustment per patient size (includes targeted exams where dose is matched to clinical indication); or iterative reconstruction. COMPARISON: CT CHEST LUNG CANCER SCREEN 06/29/2022 9:15 AM FINDINGS: Bones: There is arthrosis involving the anterior atlantodental interval with loss of joint space and marginal osteophyte formation and the odontoid process is grossly intact. There are mild anterolistheses of C2 upon C3, C3 upon C4, C4 upon C5 and C5 upon C6 and there is gross preservation of vertebral body height throughout cervical levels with no vertebral body fractures or other significant subluxations detected. No acute fractures are detected involving the posterior elements of the cervical spine. Discs/Spinal canal/Neural foramina: Loss of disc space height with posterior osteocartilaginous ridging is most significant at C5-C6 and C6-C7 resulting in canal narrowing and suspected mass-effect upon the ventral cord which could be better evaluated with MRI. No severe bony foraminal narrowings are detected at cervical levels on this noncontrast CT examination. Lungs: No pneumothorax or consolidation detected at the lung apices. Soft tissues: Unremarkable. IMPRESSION: Cervical spondylosis with central canal narrowing as above. No acute cervical fractures are detected. Dictated and Authenticated by: Evan Fuentes MD. Ordering:SUSY Faith MD
--- NOTE | 2023-06-27 20:19 | DI.VRAD_ITS ---
PROCEDURE INFORMATION: Exam: CT Chest With Contrast; Diagnostic Exam date and time: 06/27/2023 7:44 PM Age: 68 years old Clinical indication: Injury or trauma; Generalized; Blunt trauma (contusions or hematomas); Injury details: Left sided pain S/P fall down stairs TECHNIQUE: Imaging protocol: Diagnostic computed tomography of the chest with contrast. 3D rendering (Not supervised by radiologist): MIP and/or 3D reconstructed images were created by the technologist. Contrast material: OMNI 350; Contrast volume: 100 ml; Contrast route: INTRAVENOUS (IV); COMPARISON: CT CHEST LUNG CANCER SCREEN 06/29/2022 9:15 AM FINDINGS: Lungs: Regions of mosaic perfusion and mild atelectatic changes at the lung bases. Pleural spaces: Unremarkable. No pneumothorax. No pleural effusion. Heart: Heart size is normal. Trace pericardial fluid. Coronary arteries: Minimal coronary artery calcifications. Lymph nodes: Shotty nodes are seen in the prevascular space measuring up to 9 mm. 1 cm node is seen in the pretracheal region. 9 mm right epicardial node. Vasculature: Mild atherosclerotic disease. No aortic aneurysm or dissection. Bones/joints: No acute fracture. Soft tissues: Unremarkable. IMPRESSION: No acute findings. PROCEDURE INFORMATION: Exam: CT Abdomen And Pelvis With Contrast Exam date and time: 06/27/2023 7:44 PM Age: 68 years old Clinical indication: Injury or trauma; Generalized; Blunt trauma (contusions or hematomas); Injury details: Left sided pain S/P fall down stairs TECHNIQUE: Imaging protocol: Computed tomography of the abdomen and pelvis with contrast. 3D rendering (Not supervised by radiologist): MIP and/or 3D reconstructed images were created by the technologist. Contrast material: OMNI 350; Contrast volume: 100 ml; Contrast route: INTRAVENOUS (IV); COMPARISON: CT ABD PELVIS WITH CONTRAST 04/11/2017 9:09 AM FINDINGS: Liver: Normal. No mass. Gallbladder and bile ducts: Cholecystectomy. No biliary ductal dilatation. Pancreas: Normal. No ductal dilation. Spleen: Normal. No splenomegaly. Adrenal glands: Mild right adrenal nodular thickening. Findings appears similar to the prior study. There is a 2.5 x 2.4 cm left adrenal nodule. Kidneys and ureters: Bilateral renal cysts measuring up to 4.2 cm. No stones or hydronephrosis. Kidneys enhance symmetrically. Stomach and bowel: Stomach is unremarkable. Normal caliber small bowel. Unremarkable colon. Appendix: Appendix is not identified. Intraperitoneal space: Trace nonspecific fluid in the left paracolic gutter. No free air. Vasculature: There is a 3 cm infrarenal abdominal AA aortic aneurysm. Moderate atherosclerotic disease. Lymph nodes: Unremarkable. No enlarged lymph nodes. Urinary bladder: Unremarkable as visualized. Reproductive: Hysterectomy. Bones/joints: Degenerative changes in the spine. No acute fracture. Soft tissues: Unremarkable. IMPRESSION: No acute findings. Stable bilateral adrenal nodules in her thickening. Stable 3 cm infrarenal abdominal aortic aneurysm. Dictated and Authenticated by: Kimberlyn Turner MD. Ordering:SUSY Faith MD
[2023-06-27] MEDS: Lidocaine 5% Patch 1 PATCH TP (21:02)
[2023-06-27 21:06] VITALS: BP 120/52; PULSE 64; RESP 16; O2SAT 90
== END 2023-06-27 21:07 | disposition home or self-care (01) ==
PROVIDERS: Emergency Provider Emergency Medicine; PCP Student in an Organized Health Care Education/Training Program
DX: S09.90XA Unspecified injury of head, initial encounter (principal); R07.82 Intercostal pain; R10.30 Lower abdominal pain, unspecified; T07.XXXA Unspecified multiple injuries, initial encounter; W10.8XXA Fall (on) (from) other stairs and steps, initial encounter
CPT/HCPCS: 36415; 74177; 80053; 83690; 86850; 86900; 86901; 96374; 99285; 70450; 71260; 72125; 83735; 85025; 85610; 85730; 99283; J1170; J3490

== ENCOUNTER 2023-07-04 05:27 | Outpatient (CLI) | payer MEDICARE, SELFPAY ==
[2023-07-07 13:37] LABS: Erythropoietin 7.4 mIU/mL (2.6 - 18.5)
== END 2023-07-04 05:28 | disposition home or self-care (01) ==
LOC: LBO 05:27
PROVIDERS: PCP Student in an Organized Health Care Education/Training Program; Visit Provider Student in an Organized Health Care Education/Training Program
DX: D75.1 Secondary polycythemia (principal)
CPT/HCPCS: 36415; 82668

== ENCOUNTER → 2023-07-14 11:56 | Outpatient (CLI) | payer MEDICARE, MEDICAID, SELFPAY ==
--- NOTE | 2023-07-14 | DI.RAD_ITS ---
Exam(s) XR RIBS LT W PA LAT CHEST EXAM: XR RIBS LT W PA LAT CHEST CLINICAL HISTORY: R07.81 Pleurodynia TECHNIQUE: 2D digital imaging was performed. Six images are obtained. COMPARISON: CR XR PORTABLE CHEST AP from 11/23/2022 FINDINGS: MEDIASTINUM: Normal. HEART: Normal. PULMONARY VASCULATURE: Normal. LUNGS: There is an area of consolidation in the right middle lobe. This may represent atelectasis or pneumonia. There is plate atelectasis in the left lung base. PLEURAL SPACE: No pleural effusion or pneumothorax. BONE:Within normal limits for the patient's age. LEFT RIBS: Minimally displaced fractures are seen at the anterolateral aspects of the left 4th throug h 7th ribs. OTHER FINDINGS:Normal. IMPRESSION: 1. Right middle lobe infiltrate which may represent atelectasis or pneumonia. 2. Plate atelectasis is seen in the left lung base. 3. Minimally displaced fractures involving the anterolateral aspects of the left 4th through 7th ribs . 4. No left pleural effusion or pneumothorax. DATA REPOSITORY: RADIATION DOSE DELIVERED:
== END ==
PROVIDERS: PCP Student in an Organized Health Care Education/Training Program; Visit Provider Student in an Organized Health Care Education/Training Program
DX: R91.8 Other nonspecific abnormal finding of lung field (principal)
CPT/HCPCS: 71046; 71100

== ENCOUNTER 2023-11-08 09:25 | Emergency (ER) | payer MEDICARE, MEDICAID, SELFPAY ==
[2023-11-08 09:34] VITALS: BP 113/66; PULSE 56; RESP 15; O2SAT 97
[2023-11-08 09:37] VITALS: BP 113/66; PULSE 56; RESP 15; O2SAT 97
--- NOTE | 2023-11-08 10:00 | RT.EKG_ITS ---
APPROVED REPORT Exam: Resting ECG Reason for Exam: nausea Patient Location: E HR:56 bpm ECG Measurements Heart Rate 56 AXIS OK 164 P 32 QRSd 100 QRS 37 QT 454 T 47 QTc 439 Conclusion Sinus bradycardia...rate< 60 Sinus bradycardia normal axis normal intervals T wave inversions anterior leads
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
[2023-11-08] MEDS: Normal Saline 1,000 ML 1000 ML IV ×2 (10:46→13:12)
[2023-11-08 10:59] LABS: Abs Immature Grans 0.05 10^3/uL (0.0-0.06); Absolute Basophil Count 0.08 10^3/uL (0.0-0.2); Absolute Eosinophil Count 0.04 10^3/uL (0.0-0.7); Absolute Lymphocyte Count 1.67 10^3/uL (1.2-3.4); Absolute Monocyte Count 1.06 10^3/uL (0.1-0.8); Basophils % 0.8 %; Eosinophils % 0.4 %; HGB 17.4 g/dL (11.2-15.7); Immature Grans % 0.5 %; Lymphocytes % 16.5 %; MCH 30.7 pg (27.0-33.0); MCHC 33.5 % (32.0-36.0); MCV 92 fL (80-95); Monocytes % 10.5 %; Neutrophils % 71.3 %; Nucleated RBC 0.4 % (0.0-0.3); Platelet Count 266 10^3/uL (130-400); RBC 5.67 10^6/uL (3.93-5.22); RDW 14.5 % (11.7-14.6); RDW-SD 47.8 fL
[2023-11-08 11:55] LABS: ALT 16 U/L (14-59); AST 17 U/L (15-37); Albumin 3.1 g/dL (3.4-5.0); Alkaline Phosphatase 147 U/L (46-116); Anion Gap 6.4 mmol/L (3-11); BUN 21 mg/dL (7-18); Bilirubin, Total 0.37 mg/dL (0.2-1.0); CO2 27.6 mmol/L (21.0-32.0); CREATININE 1.2 mg/dL (0.55-1.02); Calcium 8.1 mg/dL (8.5-10.1); Chloride 91 mmol/L (98-107); Estimated GFR 49.31 (mL/min/1.73m2); Glucose 122 mg/dL (74-106); Lipase 19 U/L (16-77); Potassium 4.3 mmol/L (3.5-5.1); Sodium 125 mmol/L (136-145); Total Protein 7.6 g/dL (6.4-8.2)
[2023-11-08 11:56] LABS: Troponin I < 4 ng/L (<or=51)
[2023-11-08 12:13] VITALS: BP 117/59; PULSE 61; RESP 15; O2SAT 99
--- NOTE | 2023-11-08 12:54 | DI.CT_ITS ---
Exam(s) CT ABDOMEN PELVIS W EXAM: CT ABDOMEN PELVIS W CLINICAL HISTORY: llq pain, diarrhea TECHNIQUE: Imaging Protocol: Axial computed tomography images with coronal and sagittal reformatted images were created and reviewed. CONTRAST MATERIAL: Intravenous: Omnipaque 350 Contrast volume:100 mL Oral: No COMPARISON: CT ABD PELVIS WITH CONTRAST from 10/05/[address] CHEST LUNG CANCER SCREEN from 06/29/[address] CHEST/ABD/PEL W from 06/27/2023 FINDINGS: ABDOMEN: Lung Bases: Dependent atelectatic changes are seen in the lung bases. There is a 1.3 cm round densit y in the medial aspect of the right lung base on the 1st image of the series. This is unchanged comp ared to prior examinations and appears to represent volume averaging.. Liver: Normal density. There is focal fatty infiltration in the left lobe of the liver. No suspiciou s hepatic masses are present. Portal, Superior Mesenteric, and Splenic Veins: Unremarkable. Gallbladder and Biliary Tract: Status post cholecystectomy. No biliary ductal dilatation. Pancreas: Normal density, no abnormal calcifications or inflammatory process. Spleen: Normal. Adrenals: There is a stable left adrenal nodule likely reflecting an adenoma. No follow-up is recomm ended. There is a stable tiny hypodense nodule on the right adrenal gland. This likely reflects an adenoma. No follow-up is recommended. Kidneys: Normal size, contour and axis. No radiodense stones or obstructive uropathy. Bilateral simpl e renal cysts. No follow-up is recommended. Abdominal Aorta: There is a 3 cm infrarenal abdominal aortic aneurysm. Atherosclerotic calcification is present. Bowel: No evidence of obstruction. There is mild wall thickening seen in the ascending colon suggest ing a colitis. Fluid-filled loops of small and large bowel which can be seen with a diarrheal illnes s. No evidence of appendicitis. Peritoneal Cavity: No ascites, collection or mesenteric inflammatory response. No free air. Lymph Nodes: Within normal limits. Bones: Within normal limits for the patient's age. Soft Tissues: Unremarkable. PELVIS: Bladder: Symmetric distention, no gross wall thickening. Reproductive Organs: Unremarkable as visualized. Lymph Nodes: Within normal limits. Bones: Within normal limits for the patient's age. IMPRESSION: 1. Mild bowel wall thickening seen in the ascending colon suggesting colitis. No evidence of bowel o bstruction. 2. Stable 3 cm infrarenal abdominal aortic aneurysm. RADIATION DOSE DELIVERED: 491.45mGy.cm Total DLP DATA REPOSITORY: All CT scans at this facility are submitted to the National Radiology Data Registry (NRDR) Dose Index Registry (DIR) with the [employer] [place] [employer] (ACR). RADIATION OPTIMIZATION: All CT scans at this facility use at least one of these dose optimization te chniques: automated exposure control; mA and/or kV adjustment per patient size (includes targeted exa ms where dose is matched to clinical indication); or iterative reconstruction.
[2023-11-08] MEDS: Omnipaque 350 MG/ML 100 ML BTL IJ (12:56)
[2023-11-08] MEDS: Normal Saline - Diluent 50 ML VIAL IJ (12:57)
[2023-11-08 15:09] LABS: Bilirubin Negative (Negative); Blood Trace-intact (Negative); Clarity Clear (Clear); Glucose Negative (Negative); Ketones Negative (Negative); Leukocyte Esterase Small (Negative); Nitrite Negative (Negative); Urobilinogen 0.2 mg/dL (Up to 0.2); pH 5.5 (5-8)
[2023-11-08 15:23] LABS: Anion Gap 5.8 mmol/L (3-11); BUN 19 mg/dL (7-18); CO2 26.2 mmol/L (21.0-32.0); Calcium 7.3 mg/dL (8.5-10.1); Chloride 95 mmol/L (98-107); Estimated GFR 61.36 (mL/min/1.73m2); Glucose 121 mg/dL (74-106); Potassium 4.1 mmol/L (3.5-5.1); Sodium 127 mmol/L (136-145)
[2023-11-08 15:36] LABS: Epithelial Cells Few HPF (Negative)
[2023-11-08 15:39] LABS: Bacteria Few HPF (Negative); RBC 0-2 HPF (0-2); WBC 20-50 HPF (0-5)
[2023-11-08 15:40] LABS: C & S Indicated? Yes; Crystals Negative HPF (Negative); Mucus Negative (Negative)
== END 2023-11-08 15:37 | disposition home or self-care (01) ==
PROVIDERS: Emergency Provider Physician Assistant; PCP Student in an Organized Health Care Education/Training Program
DX: R10.9 Unspecified abdominal pain (principal); K52.9 Noninfective gastroenteritis and colitis, unspecified; E87.1 Hypo-osmolality and hyponatremia; E83.51 Hypocalcemia; R11.0 Nausea
CPT/HCPCS: 36415; 80048; 80053; 83690; 93005; 96360; 96361; 99285; 74177; 81003; 81015; 84484; 85025; 87086; 93010; 99283; J3490

== ENCOUNTER 2023-11-08 17:34 | Inpatient (IN) | payer MEDICARE, SELFPAY ==
[2023-11-08] VITALS (48 sets, daily range): BP systolic 82–160; BP diastolic 19–90; PULSE 57–70; RESP 10–41; TEMP 36.8; O2SAT 70–100
--- NOTE | 2023-11-08 17:45 | DI.RAD_ITS ---
Exam(s) XR PORTABLE CHEST AP EXAM: XR PORTABLE CHEST AP CLINICAL HISTORY: hypoxia on arrival. TECHNIQUE: 2D digital imaging was performed. COMPARISON: No exams were available for comparison FINDINGS: Single AP portable view. In place. Heart size is upper normal. The mediastinum is not widened. Increased interstitial markings throughout both lung henriquez. The confluent infiltrate which was evid ent in the right middle lobe on chest x-ray of 07/14/2023 is no longer seen. No obvious pleural effusions. IMPRESSION: Increased bilateral interstitial markings in lung henriquez. Possibly exaggerated by portable technique and body habitus.Recommend nonportable PA and lateral views when clinically possible. DATA REPOSITORY: RADIATION DOSE DELIVERED:
--- NOTE | 2023-11-08 17:45 | RT.EKG_ITS ---
APPROVED REPORT Exam: Resting ECG Reason for Exam: hypoxia Patient Location: E HR:60 bpm ECG Measurements Heart Rate 60 AXIS CA 162 P 45 QRSd 99 QRS 55 QT 441 T 56 QTc 440 Conclusion Sinus rhythm...normal P axis, V-rate 60- 99 Atrial premature complex...SV complex w/ short R-R interval
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
[2023-11-08 18:11] LABS: BE (Venous) 1 mmol/L (-2-3); HCO3 (Venous) 29 mmol/L (23-28); O2 Sat (Venous) 65 %; TCO2 (Venous) 26 mmol/L (24-29); pH (Venous) 7.22 (7.31-7.41); pO2 (Venous) 37 mmHg
[2023-11-08 18:13] LABS: Abs Immature Grans 0.03 10^3/uL (0.0-0.06); Absolute Basophil Count 0.06 10^3/uL (0.0-0.2); Absolute Eosinophil Count 0.02 10^3/uL (0.0-0.7); Absolute Lymphocyte Count 1.72 10^3/uL (1.2-3.4); Absolute Monocyte Count 1.13 10^3/uL (0.1-0.8); Absolute Neutrophil Count 6.72 10^3/uL (1.2-6.7); Basophils % 0.6 %; Eosinophils % 0.2 %; HCT 49.5 % (36.0-46.0); HGB 16.4 g/dL (11.2-15.7); Immature Grans % 0.3 %; Lymphocytes % 17.8 %; MCH 30.5 pg (27.0-33.0); MCHC 33.1 % (32.0-36.0); MCV 92 fL (80-95); MPV 9.8 fL (8.0-11.0); Monocytes % 11.7 %; Neutrophils % 69.4 %; Nucleated RBC 0.5 % (0.0-0.3); Platelet Count 252 10^3/uL (130-400); RBC 5.38 10^6/uL (3.93-5.22); RDW 14.6 % (11.7-14.6); RDW-SD 48.4 fL; WBC 9.68 10^3/uL (4.4-10.8)
[2023-11-08 18:15] LABS: pCO2 (Venous) 70 mmHg (41-51)
[2023-11-08] MEDS: Albuterol/Ipratropium 3 ML UPD VIAL (18:23)
[2023-11-08 18:38] LABS: ALT 15 U/L (14-59); AST 17 U/L (15-37); Albumin 3.2 g/dL (3.4-5.0); Alkaline Phosphatase 148 U/L (46-116); BUN 18 mg/dL (7-18); Bilirubin, Total 0.33 mg/dL (0.2-1.0); CREATININE 1.2 mg/dL (0.55-1.02); Calcium 7.9 mg/dL (8.5-10.1); Chloride 94 mmol/L (98-107); Estimated GFR 49.31 (mL/min/1.73m2); Glucose 135 mg/dL (74-106); Potassium 4.4 mmol/L (3.5-5.1); Sodium 129 mmol/L (136-145); Total Protein 7.2 g/dL (6.4-8.2); Troponin I 5 ng/L (<or=51)
[2023-11-08 18:47] LABS: Procalcitonin 0.1 ng/mL
[2023-11-08] MEDS: methylPREDNISolone SUCC 125 MG VIAL IVP (18:51)
[2023-11-08] MEDS: MAGNESIUM SULFATE 1 GM/100 ML BAG IVINF (18:51)
[2023-11-08 19:02] LABS: Lipase 18 U/L (16-77); NT-proBNP 2091 pg/mL (<300)
[2023-11-08] MEDS: Furosemide 40 MG/4 ML VIAL IVP (19:21)
[2023-11-08 19:49] LABS: COVID-19 PCR Negative (Negative); Influenza A PCR Negative (Negative); Influenza B PCR Negative (Negative); RSV PCR Negative (Negative)
[2023-11-08 19:50] LABS: Bilirubin Negative (Negative); Blood Negative (Negative); Clarity Clear (Clear); Glucose Negative (Negative); Ketones Negative (Negative); Leukocyte Esterase Trace (Negative); Nitrite Negative (Negative); Specific Gravity <= 1.005 (1.005-1.025); Urobilinogen 0.2 mg/dL (Up to 0.2); pH 5.5 (5-8)
[2023-11-08 19:51] LABS: Source NASOPHARYNX
[2023-11-08 19:57] LABS: Bacteria Rare HPF (Negative); C & S Indicated? No; Casts Negative LPF (Negative); Crystals Negative HPF (Negative); Epithelial Cells Few HPF (Negative); Mucus Negative (Negative); Other Cells Negative (Negative); RBC 0-2 HPF (0-2)
[2023-11-08 20:00] LABS: Troponin I 5 ng/L (<or=51)
[2023-11-08] MEDS: Normal Saline 1,000 ML 150 ML IV (20:13)
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
[2023-11-08 23:16] LABS: Troponin I 5 ng/L (<or=51)
[2023-11-09] VITALS (33 sets, daily range): BP systolic 79–150; BP diastolic 52–75; PULSE 49–71; RESP 12–24; TEMP 36.7; O2SAT 79–97
[2023-11-09] MEDS: Lactated Ringers 1,000 ML 100 ML IV ×3 (03:03→23:05)
[2023-11-09 06:34] LABS: BE (Venous) 3 mmol/L (-2-3); HCO3 (Venous) 30 mmol/L (23-28); O2 Sat (Venous) 86 %; TCO2 (Venous) 26 mmol/L (24-29); pH (Venous) 7.29 (7.31-7.41); pO2 (Venous) 52 mmHg
[2023-11-09 06:37] LABS: Abs Immature Grans 0.04 10^3/uL (0.0-0.06); Absolute Basophil Count 0.02 10^3/uL (0.0-0.2); Absolute Lymphocyte Count 0.72 10^3/uL (1.2-3.4); Absolute Monocyte Count 0.34 10^3/uL (0.1-0.8); Absolute Neutrophil Count 6.17 10^3/uL (1.2-6.7); Basophils % 0.3 %; HCT 52.4 % (36.0-46.0); Immature Grans % 0.5 %; Lymphocytes % 9.9 %; MCH 30.3 pg (27.0-33.0); MCHC 32.4 % (32.0-36.0); MCV 93 fL (80-95); MPV 9.9 fL (8.0-11.0); Monocytes % 4.7 %; Neutrophils % 84.6 %; Nucleated RBC 0.7 % (0.0-0.3); Platelet Count 227 10^3/uL (130-400); RBC 5.61 10^6/uL (3.93-5.22); RDW 14.5 % (11.7-14.6); RDW-SD 48.7 fL; WBC 7.29 10^3/uL (4.4-10.8); pCO2 (Venous) 62 mmHg (41-51)
[2023-11-09 06:51] LABS: Anion Gap 5.4 mmol/L (3-11); BUN 14 mg/dL (7-18); CO2 29.6 mmol/L (21.0-32.0); Calcium 8.2 mg/dL (8.5-10.1); Chloride 96 mmol/L (98-107); Estimated GFR 61.36 (mL/min/1.73m2); Glucose 183 mg/dL (74-106); Potassium 4.4 mmol/L (3.5-5.1); Sodium 131 mmol/L (136-145)
[2023-11-09] MEDS: amLODIPine 10 MG TAB PO (07:57)
[2023-11-09] MEDS: predniSONE 20 MG TAB 40 MG PO (07:57)
--- NOTE | 2023-11-09 08:17 | RESPIRATORY ---
RT Initial Evalutation/Assessment Start: 11/08/23 23:11 Freq: .q shift and prn Status: Active Protocol: Document 11/09/23 08:11 [email or web address] (Rec: 11/09/23 08:17 [email or web address] [id number]) RT Assessment Pulmonary History Pulmonary History COPD Smoking History Smoking/Tobacco Use Status Current every day Tobacco: How many years used 50 Tobacco Type cigarettes Packs per Day 2 OXYGEN HISTORY: Supplemental O2 At Rest 2 With Exertion 2 CPAP Settings N/A BIPAP Settings N/A Trilogy/AVAPS Settings N/A DME/Compliance DME [facility] Current Respiratory Symptoms Current Respiratory Symptoms Cough Activity Activity Level 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
[2023-11-09] MEDS: Budesonide/Formoterol 160/4.5 6 GM 60 PUFF INH IH ×2 (08:23→20:06)
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
[2023-11-09] MEDS: Enoxaparin 40 MG/0.4 ML SYR SC (10:28)
--- NOTE | 2023-11-09 11:15 | CHAPLAIN ---
Kira was up in the chair. She was wearing a BiPAP machine so we didn't get involved in a long conversation. She is a member of the [employer] in [facility] and said her has likely let the holiness know she is here. I will continue to visit.
--- NOTE | 2023-11-09 11:18 | PHA.REVIEW2 ---
Pharmacy Admission Review Admission Clinical Review Admission Pharmacy Review: COPD exacerbation (Acute) Acute respiratory failure with hypoxia and hypercapnia (Acute) Colitis (Acute) Diarrhea (Acute) Hypocalcemia (Acute) Acute hyponatremia (Acute) Heart failure with preserved ejection fraction (Acute) Nicotine dependence, cigarettes, uncomplicated (Acute) varenicline (From Chantix) Allergy (Severe, Verified 11/08/23 09:39) Agitation Penicillins Allergy (Intermediate, Verified 11/08/23 09:39) seizure tiotropium (From Spiriva with HandiHaler) Allergy (Intermediate, Verified 11/08/23 09:39) hives codeine Allergy (Mild, Verified 11/08/23 09:39) Hives diphenhydramine HCl (From Benadryl) Allergy (Mild, Verified 11/08/23 09:39) Swelling/Edema levofloxacin Allergy (Mild, Verified 11/08/23 09:39) Skin Rash clonidine Allergy (Unknown, Verified 11/08/23 09:39) rash mirtazapine Allergy (Unknown, Verified 11/08/23 09:39) rash ketorolac Adverse Reaction (Severe, Verified 11/08/23 09:39) Per pt. over sedation pregabalin (From Lyrica) Adverse Reaction (Severe, Verified 11/08/23 09:39) Headache, confusion, narcolepsy promethazine Adverse Reaction (Severe, Verified 11/08/23 09:39) over sedation per pt. diclofenac Adverse Reaction (Intermediate, Verified 11/08/23 09:39) Wheezing, stomach upset and brusing prochlorperazine Adverse Reaction (Intermediate, Verified 11/08/23 09:39) muscle spasm, shaking, blurred vision,room spinning cantalope Allergy (Intermediate, Uncoded 11/08/23 09:39) can't breath chicken dander/feathers Allergy (Intermediate, Uncoded 11/08/23 09:39) can't breath mckenna Allergy (Intermediate, Uncoded 11/08/23 09:39) sob Resuscitation Status DNR/DNI Height 5 ft 4 in Weight 86.4 kg Comments Comments/Follow Ups: Urine culture pending, watch for results. Currently no order for antibiotics. Pharmacy Admission Review Renal Dosing Renal Dosing: BUN 14 mg/dL (7-18) 11/09/23 06:25 Creatinine 1.0 mg/dL (0.55-1.02) 11/09/23 06:25 Medications needing adjustments: Reviewed (CrCl 57.21 mL/min, SCr decreased from 1.2) List of meds needing interventions: Current medications are okay Anticoagulation Anticoagulation: Hgb 17.0 g/dL (11.2-15.7) H 11/09/23 06:25 Hct 52.4 % (36.0-46.0) H 11/09/23 06:25 Plt Count 227 10^3/uL (130-400) 11/09/23 06:25 Creatinine 1.0 mg/dL (0.55-1.02) 11/09/23 06:25 DVT Prophylaxis: Reviewed (Hgb increased from 16.4) Medications: Enoxaparin (40mg daily) Relevant Labs Relevant Labs: Sodium 131 mmol/L (136-145) L 11/09/23 06:25 Potassium 4.4 mmol/L (3.5-5.1) 11/09/23 06:25 Chloride 96 mmol/L (98-107) L 11/09/23 06:25 Magnesium 2.0 mg/dL (1.8-2.4) 11/08/23 18:00 Electrolytes, C-Reactive P, ESR: Reviewed (Na increased from 129, Ca increased from 7.9, glucose 183 at 0625) Cardiac Review Cardiac Review: Troponin I 5 ng/L (<or=51) 11/08/23 22:55 NT-Pro-B Natriuret Pep 2091 pg/mL (<300) H 11/08/23 18:00 BP, HR, EF%: Reviewed (BP WNL, HR 59) List meds needing interventions: Has order for amlodipine 10mg daily and lisinopril 40mg daily QTc Review QTc: Reviewed (440 from 11/08/23) IV to PO Switch IV Medications: Reviewed Home Meds Home Med List reviewed: Intervened Relevent Home Meds Not ordered & why?: Advair (substituted with Symbicort per pharmacy protocol), lisinopril (now ordered) and Florastor Spoke with provider during morning meeting regarding lisinopril. Is on patients home med list but no order had been put in. Provider looked into it and then put in order. Order for calcium citrate changed to patients own (non-formulary) Current Meds Current Medication Order Review: Intervened Comments: Added IV admission order set Pharmacy Antibiotic Review Relevant Labs: Relevant Labs 11/08/23 18:00 Procalcitonin 0.1 Comments Comments/Follow Ups: Urine culture pending, watch for results. Currently no order for antibiotics.
[2023-11-09 11:59] LABS: BE (Venous) 4 mmol/L (-2-3); HCO3 (Venous) 30 mmol/L (23-28); O2 Sat (Venous) 89 %; TCO2 (Venous) 27 mmol/L (24-29); pCO2 (Venous) 57 mmHg (41-51); pH (Venous) 7.33 (7.31-7.41); pO2 (Venous) 55 mmHg
--- NOTE | 2023-11-09 13:36 | PGE_ITS ---
Date of Service Date of service: 11/09/23 Time of Service: 13:38 Assessment and Plan Assessment and plan (1) Acute respiratory failure with hypoxia and hypercapnia: Status: Acute Assessment and plan: Respiratory failure and hypercapnia. It appears she has chronic hypoxia that she is not monitoring and not using her home oxygen regularly. It appears that the GI illness with associated fatigue may of pushed her over into worsening respiratory failure. VBGs demonstrated improvement on BiPAP overnight, but she still needed to blow of some CO2 so back on BiPAP today. Her midday VBG 11/08 shows normalization of pH so she is likely approaching her baseline CO2 retention. Treating COPD as below. CHF may also be contributing, see below. (2) COPD exacerbation: Status: Acute Assessment and plan: She has responded to bronchodilators and bolus steroids, now on prednisone. No fever/increased sputum or elevated procal, so no antibiotics at this time. (3) Colitis: Status: Acute Assessment and plan: Acute gastroenteritis, likely viral. It does appear to be improving. She has gotten IV fluid replacement and appears to be stable at this time. (4) Hypocalcemia: Status: Acute Assessment and plan: Mild, corrects with albumin, though this is not super reliable. She is on calcium replacement, continue. (5) Acute hyponatremia: Status: Acute Assessment and plan: Mild, a/w lung disease. Monitor. (6) Sleep apnea: Status: Chronic Assessment and plan: She has sleep apnea but does not wear CPAP device. She states she did not tolerated. Did okay on BiPAP here overnight Qualifiers: Sleep apnea type: obstructive Qualified Code(s): G47.33 - Obstructive sleep apnea (adult) (pediatric) (7) Heart failure with preserved ejection fraction: Status: Acute Assessment and plan: History of heart failure with preserved ejection fraction. She seems to have had some congestive failure with the IV fluids in the ED, and she did seem to respond to the furosemide. BNaP and CXR also possibly c/w some fluid overload. No recent echocardiogram, so I think repeating this would make sense. (8) Nicotine dependence, cigarettes, uncomplicated: Status: Acute Assessment and plan: Offered nicotine replacement, she declined. Will have nicotine replacement as needed. Precontemplative about quitting smoking, continue to discuss Subjective Subjective Patient reports: no new complaints; denies vomiting or fever Interval history since last seen: She feels a little better. Stools still soft, less watery. No blood. No abdominal or chest pain. She is eating some this morning. Breathing is better than yesterday but still not baseline. She states she has oxygen at home but wasn't using it (though she doesn't monitor her oxygen). Exam Narrative Exam Narrative: Sitting up in chair, no acute distress, wearing NC, able to speak comfortably. Lungs with good air movement, slight rhonchi in lower henriquez, no wheeze or rales. Heart regular, 2/6 murmur in RUSB to neck. Abdomen soft, NT/ND. Extremities showed no significant edema, warm. Objective Last Vital Signs Temp 36.7 C 11/09/23 00:17 Pulse 59 L 11/09/23 10:32 Resp 23 11/09/23 10:32 BP 133/60 11/09/23 04:02 Pulse Ox 88 L 11/09/23 12:11 Laboratory Results - last 24 hr 11/08/23 11/08/23 11/08/23 18:00 19:30 19:45 WBC 9.68 RBC 5.38 H Hgb 16.4 H Hct 49.5 H MCV 92 MCH 30.5 MCHC 33.1 RDW 14.6 Plt Count 252 MPV 9.8 Immature Gran % 0.3 Neutrophils % 69.4 Lymphocytes % 17.8 Monocytes % 11.7 Eosinophils % 0.2 Basophils % 0.6 Nucleated RBC % 0.5 H Absolute Neutrophils 6.72 H Absolute Lymphocytes 1.72 Absolute Monocytes 1.13 H Absolute Eosinophils 0.02 Absolute Basophils 0.06 VBG pH 7.22 L VBG pCO2 70 H* VBG pO2 37 VBG HCO3 29 H VBG Total CO2 26 VBG O2 Saturation 65 VBG Base Excess 1 VBG Lactate 1.0 Sodium 129 L Potassium 4.4 Chloride 94 L Carbon Dioxide 30.0 Anion Gap 5.0 BUN 18 Creatinine 1.2 H Est GFR (CKD-EPI 2020) 49.31 Glucose 135 H Calcium 7.9 L Magnesium 2.0 Total Bilirubin 0.33 AST 17 ALT 15 Alkaline Phosphatase 148 H Troponin I 5 5 NT-Pro-B Natriuret Pep 2090 H Total Protein 7.2 Albumin 3.2 L Lipase 18 Procalcitonin 0.1 Urine Color Yellow Urine Clarity Clear Urine pH 5.5 Ur Specific [place] <= 1.005 Urine Protein Negative Urine Ketones Negative Urine Blood Negative Urine Nitrite Negative Urine Bilirubin Negative Urine Urobilinogen 0.2 Ur Leukocyte Esterase Trace H Urine RBC 0-2 Urine WBC 3-5 Ur Epithelial Cells Few Urine Crystals Negative Urine Bacteria Rare Urine Casts Negative Urine Mucus Negative Urine Other Negative Ur Culture Indicated? No Urine Glucose Negative COVID-19 Source NASOPHARYNX SARS-CoV-2 (PCR) Negative Influenza Type A (PCR) Negative Influenza Type B (PCR) Negative RSV (PCR) Negative 11/08/23 11/09/23 11/09/23 22:55 06:25 11:54 WBC 7.29 RBC 5.61 H Hgb 17.0 H Hct 52.4 H MCV 93 MCH 30.3 MCHC 32.4 RDW 14.5 Plt Count 227 MPV 9.9 Immature Gran % 0.5 Neutrophils % 84.6 Lymphocytes % 9.9 Monocytes % 4.7 Eosinophils % 0.0 Basophils % 0.3 Nucleated RBC % 0.7 H Absolute Neutrophils 6.17 Absolute Lymphocytes 0.72 L Absolute Monocytes 0.34 Absolute Eosinophils 0.00 Absolute Basophils 0.02 VBG pH 7.29 L 7.33 VBG pCO2 62 H* 57 H VBG pO2 52 55 VBG HCO3 30 H 30 H VBG Total CO2 26 27 VBG O2 Saturation 86 89 VBG Base Excess 3 4 H VBG Lactate Sodium 131 L Potassium 4.4 Chloride 96 L Carbon Dioxide 29.6 Anion Gap 5.4 BUN 14 Creatinine 1.0 Est GFR (CKD-EPI 2020) 61.36 Glucose 183 H Calcium 8.2 L Magnesium Total Bilirubin AST ALT Alkaline Phosphatase Troponin I 5 NT-Pro-B Natriuret Pep Total Protein Albumin Lipase Procalcitonin Urine Color Urine Clarity Urine pH Ur Specific [place] Urine Protein Urine Ketones Urine Blood Urine Nitrite Urine Bilirubin Urine Urobilinogen Ur Leukocyte Esterase Urine RBC Urine WBC Ur Epithelial Cells Urine Crystals Urine Bacteria Urine Casts Urine Mucus Urine Other Ur Culture Indicated? Urine Glucose COVID-19 Source SARS-CoV-2 (PCR) Influenza Type A (PCR) Influenza Type B (PCR) RSV (PCR) Time Spent with Patient Time Spent with Patient: >50 minutes Time was spent: preparing to see the patient(eg.review tests), obtaining and/or reviewing separately otained hiistory, ordering medications,tests, procedures, referring, communicating with other health home health care coordinator, indepentently interpreting results, counseling the patient and care coordination
[2023-11-09] MEDS: Nystatin CREAM 30 GM TUBE TP ×2 (14:12→22:03)
[2023-11-10] VITALS (17 sets, daily range): BP systolic 129–154; BP diastolic 57–69; PULSE 50–80; RESP 13–22; TEMP 36.8–37.1; O2SAT 87–94
[2023-11-10] MEDS: Budesonide/Formoterol 160/4.5 6 GM 60 PUFF INH IH (07:42)
[2023-11-10] MEDS: Lisinopril 20 MG TAB 40 MG PO (08:04)
[2023-11-10] MEDS: amLODIPine 10 MG TAB PO (08:05)
[2023-11-10] MEDS: predniSONE 20 MG TAB 40 MG PO (08:05)
[2023-11-10] MEDS: Nystatin CREAM 30 GM TUBE TP ×2 (09:28→14:48)
[2023-11-10] MEDS: Enoxaparin 40 MG/0.4 ML SYR SC (11:42)
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
--- NOTE | 2023-11-10 15:47 | CHAPLAIN ---
Kira was sitting up in the chair when I visited. She wasn't using her BiPAP machine like she was yesterday. Kira is a member of the [employer]. The former past there, Rev. Abelardo Morgan came and visited with Kira earlier today and she seemed to appreciate that visit. Kira said she may go home today. I will continue to visit if she doesn't.
--- NOTE | 2023-11-11 07:54 | PDOC.CMDIS ---
Date of service: 11/10/23 Time of Service: 07:54 LACE Index Scoring Tool Questions: Length of Stay (in days): 3 Was the patient admitted via the E.D.?: Yes Comorbidities: Chronic Pulmonary Disease E.D. Visits: 1 Answers: Total Score: 9 Risk of Readmission: Low Risk Care Management Discharge Plan Reason for Hospitalization: Hypoxic respiratory failure, COPD Discharge Plan: Kira will be discharged home with no new services. She will follow up with her community providers and plan of care and transport with family. Patient/Family Education Needs: Review discharge instructions, discuss Ask Me Three Services Needed at Discharge: Oxygen Therapy (resumption) SDOH Health Related Social Needs: No Data to Display
== END 2023-11-10 16:15 | disposition home or self-care (01) | DRG 190 ==
LOC: ER 21:51 → ICU 23:09
PROVIDERS: Family Medicine; Admitting Provider Family Medicine; Emergency Provider Physician Assistant; PCP Student in an Organized Health Care Education/Training Program; Visit Provider Family Medicine
DX: J44.1 Chronic obstructive pulmonary disease with (acute) exacerbation; J96.01 Acute respiratory failure with hypoxia; J96.02 Acute respiratory failure with hypercapnia; A08.39 Other viral enteritis; E87.1 Hypo-osmolality and hyponatremia; I50.30 Unspecified diastolic (congestive) heart failure; E83.51 Hypocalcemia; G47.33 Obstructive sleep apnea (adult) (pediatric); F17.210 Nicotine dependence, cigarettes, uncomplicated; H90.3 Sensorineural hearing loss, bilateral; G43.109 Migraine with aura, not intractable, without status migrainosus; R91.8 Other nonspecific abnormal finding of lung field; N32.81 Overactive bladder; R73.03 Prediabetes; K21.9 Gastro-esophageal reflux disease without esophagitis; F32.A Depression, unspecified; F43.10 Post-traumatic stress disorder, unspecified; M51.16 Intervertebral disc disorders with radiculopathy, lumbar region; Z99.81 Dependence on supplemental oxygen; E66.9 Obesity, unspecified; Z68.32 Body mass index [BMI] 32.0-32.9, adult
CPT/HCPCS: 00123; 36415; 80048; 80053; 82805; 83690; 84145; 87637; 93005; 94640; 96361; 96365; 96372; 96375; 99285; J1650; 71045; 81003; 81015; 83605; 83735; 83880; 84484; 85025; 93010; 93306; 94660; 94664; 99222; 99233; 99239; J1940; J2919; J3475; J7512; J7620

== ENCOUNTER 2023-11-18 13:49 | Emergency (ER) | payer MEDICARE, SELFPAY ==
[2023-11-18] VITALS (7 sets, daily range): BP systolic 160–173; BP diastolic 47–80; PULSE 56–62; RESP 9–18; TEMP 36.8; O2SAT 87–93
--- NOTE | 2023-11-18 14:00 | DI.US_ITS ---
Exam(s) US LOWER EXTREMITY VENOUS RT EXAM: US LOWER EXTREMITY VENOUS RT CLINICAL HISTORY: RLE swelling pain. TECHNIQUE: Lower extremity venous ultrasound performed using grayscale, color-flow, and spectral Do ppler analysis. COMPARISON: No exams were available for comparison FINDINGS: The common femoral, femoral and popliteal veins demonstrate normal compressibility, augmentation, and color Doppler. The posterior tibial veins are patent. No saphenous vein thrombosis or other superfi cial venous thrombosis is seen. No hematoma or Renteria's cyst is seen. IMPRESSION: Negative lower extremity ultrasound. No evidence of DVT. DATA REPOSITORY:
--- NOTE | 2023-11-18 14:00 | DI.RAD_ITS ---
Exam(s) XR CHEST 2V PA LATERAL EXAM: XR CHEST 2V PA LATERAL the CLINICAL HISTORY: shortness TECHNIQUE: 2D digital imaging was performed. Two views. COMPARISON: CR XR RIBS LT W PA LAT CHEST from 07/14/2023 CR XR PORTABLE CHEST AP from 11/08/2023 FINDINGS: HEART: Enlarged, unchanged. Aorta: Not dilated. PULMONARY VASCULATURE: Prominent MEDIASTINUM: Unremarkable. LUNGS: Increased densities right middle lobe suspicious for pneumonia. PLEURAL SPACE: No pleural effusion or pneumothorax. BONE:Unremarkable for age. SOFT TISSUES: Unremarkable. IMPRESSION: Increased right middle lobe opacities suspicious for pneumonia. DATA REPOSITORY: RADIATION DOSE DELIVERED:
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
[2023-11-18 14:54] LABS: BE (Venous) 16 mmol/L (-2-3); HCO3 (Venous) 41 mmol/L (23-28); O2 Sat (Venous) 67 %; TCO2 (Venous) 36 mmol/L (24-29); pH (Venous) 7.41 (7.31-7.41); pO2 (Venous) 33 mmHg
[2023-11-18 14:55] LABS: Abs Immature Grans 0.04 10^3/uL (0.0-0.06); Absolute Basophil Count 0.07 10^3/uL (0.0-0.2); Absolute Eosinophil Count 0.12 10^3/uL (0.0-0.7); Absolute Monocyte Count 0.93 10^3/uL (0.1-0.8); Absolute Neutrophil Count 4.83 10^3/uL (1.2-6.7); Basophils % 0.9 %; Eosinophils % 1.5 %; HCT 53.6 % (36.0-46.0); HGB 16.9 g/dL (11.2-15.7); Immature Grans % 0.5 %; Lymphocytes % 26.9 %; MCHC 31.5 % (32.0-36.0); MCV 95 fL (80-95); MPV 9.2 fL (8.0-11.0); Monocytes % 11.4 %; Neutrophils % 58.8 %; Platelet Count 274 10^3/uL (130-400); RBC 5.64 10^6/uL (3.93-5.22); RDW 14.6 % (11.7-14.6); RDW-SD 50.9 fL; WBC 8.19 10^3/uL (4.4-10.8)
[2023-11-18] MEDS: methylPREDNISolone SUCC 125 MG VIAL IVP (14:56)
[2023-11-18] MEDS: Normal Saline Flush 10 ML SYR IVP (14:56)
[2023-11-18] MEDS: Albuterol/Ipratropium 3 ML UPD VIAL UPD (14:56)
[2023-11-18 14:58] LABS: pCO2 (Venous) 65 mmHg (41-51)
[2023-11-18 15:19] LABS: ALT 12 U/L (14-59); AST 9 U/L (15-37); Albumin 3.3 g/dL (3.4-5.0); Alkaline Phosphatase 116 U/L (46-116); BUN 8 mg/dL (7-18); Bilirubin, Total 0.64 mg/dL (0.2-1.0); CREATININE 0.9 mg/dL (0.55-1.02); Calcium 8.7 mg/dL (8.5-10.1); Chloride 99 mmol/L (98-107); Estimated GFR 69.64 (mL/min/1.73m2); Glucose 125 mg/dL (74-106); NT-proBNP 579 pg/mL (<300); Potassium 4.2 mmol/L (3.5-5.1); Sodium 140 mmol/L (136-145); Total Protein 7.2 g/dL (6.4-8.2)
[2023-11-18] MEDS: Doxycycline Hyclate 100 MG CAP PO (16:02)
[2023-11-18] MEDS: Albuterol HFA 8 GM 60 PUFF INH IH (16:02)
[2023-11-18] MEDS: Cefpodoxime 200 MG TAB PO (16:02)
== END 2023-11-18 16:17 | disposition home or self-care (01) ==
PROVIDERS: Emergency Provider Emergency Medicine; PCP Student in an Organized Health Care Education/Training Program
DX: J44.1 Chronic obstructive pulmonary disease with (acute) exacerbation (principal); J18.9 Pneumonia, unspecified organism; M79.604 Pain in right leg
CPT/HCPCS: 80053; 82805; 94640; 96374; 99285; 71046; 83735; 83880; 85025; 93971; 99284; J2919; J7620

== ENCOUNTER 2023-12-22 13:27 | Outpatient (REF) | payer MEDICARE, SELFPAY ==
[2023-12-22 15:56] LABS: Bacteria Rare HPF (Negative); C & S Indicated? No; Casts Negative LPF (Negative); Crystals Negative HPF (Negative); Epithelial Cells Few HPF (Negative); Mucus Negative (Negative); RBC Negative HPF (0-2); WBC 0-2 HPF (0-5)
== END 2023-12-22 13:28 | disposition home or self-care (01) ==
LOC: NCHCN 13:27
PROVIDERS: PCP Student in an Organized Health Care Education/Training Program; Visit Provider Student in an Organized Health Care Education/Training Program
DX: R35.0 Frequency of micturition (principal)
CPT/HCPCS: 81015

== ENCOUNTER 2024-02-04 07:00 | Emergency (ER) | payer MEDICARE, SELFPAY ==
[2024-02-04] VITALS (36 sets, daily range): BP systolic 96–154; BP diastolic 16–73; PULSE 54–63; RESP 14–24; TEMP 36.5–36.8; O2SAT 58–92
--- NOTE | 2024-02-04 07:00 | RT.EKG_ITS ---
APPROVED REPORT Exam: Resting ECG Reason for Exam: chest pain Patient Location: E HR:61 bpm ECG Measurements Heart Rate 61 AXIS ND 183 P 44 QRSd 95 QRS 83 QT 481 T 122 QTc 487 Conclusion Sinus rhythm...normal P axis, V-rate 60- 99 Nonspecific repol abnormality, lateral leads...ST dep, T neg, I aVL V5 V6 I have reviewed and interpreted ECG and agree with software generated interpretation.
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
--- NOTE | 2024-02-04 07:15 | DI.RAD_ITS ---
Exam(s) XR PORTABLE CHEST AP EXAM: XR PORTABLE CHEST AP CLINICAL HISTORY: Chest pain TECHNIQUE: 2D digital imaging was performed of the chest. One image was obtained. An AP view was ob tained. COMPARISON: CR XR CHEST 2V PA LATERAL from 11/18/2023 FINDINGS: MEDIASTINUM: Normal. HEART: Mild cardiomegaly. PULMONARY VASCULATURE: Normal. LUNGS: No focal consolidating infiltrates. Mild increased lung markings and prominence of the pulmon miosés vasculature which may represent fluid overload. PLEURAL SPACE: No pleural effusion or pneumothorax. BONE:Within normal limits for the patient's age. OTHER FINDINGS:Normal. IMPRESSION: 1. Cardiomegaly. Mild increased lung markings with prominence of the pulmonary vasculature which may represent fluid overload. Please correlate clinically. 2. No focal consolidating infiltrates. DATA REPOSITORY: RADIATION DOSE DELIVERED:
[2024-02-04 07:39] LABS: Abs Immature Grans 0.04 10^3/uL (0.0-0.06); Absolute Basophil Count 0.07 10^3/uL (0.0-0.2); Absolute Eosinophil Count 0.09 10^3/uL (0.0-0.7); Absolute Lymphocyte Count 2.09 10^3/uL (1.2-3.4); Absolute Monocyte Count 0.81 10^3/uL (0.1-0.8); Absolute Neutrophil Count 4.16 10^3/uL (1.2-6.7); Eosinophils % 1.2 %; HCT 54.6 % (36.0-46.0); HGB 16.7 g/dL (11.2-15.7); Immature Grans % 0.6 %; Lymphocytes % 28.8 %; MCHC 30.6 % (32.0-36.0); MCV 95 fL (80-95); MPV 9.5 fL (8.0-11.0); Monocytes % 11.2 %; Neutrophils % 57.2 %; Platelet Count 250 10^3/uL (130-400); RBC 5.75 10^6/uL (3.93-5.22); RDW 16.1 % (11.7-14.6); RDW-SD 55.8 fL; WBC 7.26 10^3/uL (4.4-10.8)
[2024-02-04 08:05] LABS: Anion Gap 4.2 mmol/L (3-11); BUN 13 mg/dL (7-18); CO2 34.8 mmol/L (21.0-32.0); CREATININE 1.1 mg/dL (0.55-1.02); Calcium 8.1 mg/dL (8.5-10.1); Chloride 99 mmol/L (98-107); Estimated GFR 54.39 (mL/min/1.73m2); Glucose 125 mg/dL (74-106); NT-proBNP 2336 pg/mL (<300); Potassium 4.6 mmol/L (3.5-5.1); Sodium 138 mmol/L (136-145); Troponin I 6 ng/L (<or=51)
[2024-02-04 08:06] LABS: D-Dimer 453 ng/mlFEU (<500)
--- NOTE | 2024-02-04 09:10 | DI.VRAD_ITS ---
PROCEDURE INFORMATION: Exam: XR Chest Exam date and time: 02/04/2024 7:50 AM Age: 69 years old Clinical indication: Other: Chest pain TECHNIQUE: Imaging protocol: Radiologic exam of the chest. Views: 1 view. COMPARISON: CR XR CHEST 2V PA LATERAL 11/18/2023 3:24 PM FINDINGS: Lungs: Lungs are clear with no infiltrate or nodule. Pleural spaces: Unremarkable. No pleural effusion. No pneumothorax. Heart/Mediastinum: Mild cardiomegaly Bones/joints: Unremarkable. IMPRESSION: No active cardiopulmonary disease. Dictated and Authenticated by: Vinay Pennington MD. Ordering:JORDAN Slater MD
[2024-02-04 09:29] LABS: Troponin I 5 ng/L (<or=51)
[2024-02-04] MEDS: Furosemide 20 MG TAB 40 MG PO (09:43)
== END 2024-02-04 10:03 | disposition home or self-care (01) ==
PROVIDERS: Emergency Provider Emergency Medicine; PCP Student in an Organized Health Care Education/Training Program
DX: R07.89 Other chest pain (principal); J44.9 Chronic obstructive pulmonary disease, unspecified; Z99.81 Dependence on supplemental oxygen; R06.02 Shortness of breath; J96.11 Chronic respiratory failure with hypoxia
CPT/HCPCS: 36415; 80048; 93005; 93308; 99285; 71045; 83735; 83880; 84484; 85025; 85379; 93010

== ENCOUNTER 2024-02-27 14:00 | Outpatient (REF) | payer MEDICARE, SELFPAY ==
[2024-02-27 15:39] LABS: Abs Immature Grans 0.02 10^3/uL (0.0-0.06); Absolute Basophil Count 0.07 10^3/uL (0.0-0.2); Absolute Eosinophil Count 0.08 10^3/uL (0.0-0.7); Absolute Lymphocyte Count 1.72 10^3/uL (1.2-3.4); Absolute Monocyte Count 0.85 10^3/uL (0.1-0.8); Absolute Neutrophil Count 4.77 10^3/uL (1.2-6.7); Basophils % 0.9 %; Eosinophils % 1.1 %; HCT 56.8 % (36.0-46.0); HGB 16.7 g/dL (11.2-15.7); Immature Grans % 0.3 %; Lymphocytes % 22.9 %; MCH 26.7 pg (27.0-33.0); MCHC 29.4 % (32.0-36.0); MCV 91 fL (80-95); MPV 11.3 fL (8.0-11.0); Monocytes % 11.3 %; Neutrophils % 63.5 %; Platelet Count 267 10^3/uL (130-400); RBC 6.26 10^6/uL (3.93-5.22); RDW 17.2 % (11.7-14.6); RDW-SD 55.2 fL; WBC 7.51 10^3/uL (4.4-10.8)
[2024-02-27 15:59] LABS: ALT 17 U/L (14-59); AST 26 U/L (15-37); Albumin 3.1 g/dL (3.4-5.0); Alkaline Phosphatase 152 U/L (46-116); Anion Gap 6.4 mmol/L (3-11); BUN 17 mg/dL (7-18); Bilirubin, Total 0.68 mg/dL (0.2-1.0); CO2 29.6 mmol/L (21.0-32.0); CREATININE 0.9 mg/dL (0.55-1.02); Calcium 8.5 mg/dL (8.5-10.1); Chloride 103 mmol/L (98-107); Glucose 134 mg/dL (74-106); Sodium 139 mmol/L (136-145); Total Protein 6.5 g/dL (6.4-8.2)
== END 2024-02-27 14:01 | disposition home or self-care (01) ==
LOC: NCHCN 14:00
PROVIDERS: PCP Student in an Organized Health Care Education/Training Program; Visit Provider Student in an Organized Health Care Education/Training Program
DX: R05.9 Cough, unspecified (principal)
CPT/HCPCS: 80053; 85025

== ENCOUNTER 2024-03-09 13:14 | Outpatient (REF) | payer MEDICARE, SELFPAY ==
[2024-03-09 15:49] LABS: Anion Gap 1.6 mmol/L (3-11); BUN 11 mg/dL (7-18); CO2 38.4 mmol/L (21.0-32.0); CREATININE 0.9 mg/dL (0.55-1.02); Calcium 9.1 mg/dL (8.5-10.1); Chloride 99 mmol/L (98-107); Glucose 87 mg/dL (74-106); Potassium 4.8 mmol/L (3.5-5.1); Sodium 139 mmol/L (136-145)
== END 2024-03-09 13:15 | disposition home or self-care (01) ==
LOC: NCHCN 13:14
PROVIDERS: PCP Student in an Organized Health Care Education/Training Program; Visit Provider Student in an Organized Health Care Education/Training Program
DX: R89.1 Abnormal level of hormones in specimens from other organs, systems and tissues (principal)
CPT/HCPCS: 80048

== ENCOUNTER → 2024-04-23 12:42 | Outpatient (BNVA) | payer MEDICARE, SELFPAY | PROVIDERS: PCP Student in an Organized Health Care Education/Training Program; Referring Provider Student in an Organized Health Care Education/Training Program; Visit Provider Physician Assistant Surgical | DX: J96.11 Chronic respiratory failure with hypoxia (principal); J96.12 Chronic respiratory failure with hypercapnia; J44.9 Chronic obstructive pulmonary disease, unspecified; R91.8 Other nonspecific abnormal finding of lung field; G47.33 Obstructive sleep apnea (adult) (pediatric); F17.210 Nicotine dependence, cigarettes, uncomplicated; Z01.811 Encounter for preprocedural respiratory examination | CPT/HCPCS: 99214 ==

== ENCOUNTER 2024-07-17 01:14 | Outpatient (CLI) | payer MEDICARE, SELFPAY ==
--- NOTE | 2024-07-17 07:15 | DI.CTLCSR_ITS ---
Exam(s) CT CHEST LUNG CANCER SCREEN EXAM: CT CHEST LUNG CANCER SCREEN CLINICAL HISTORY: Screening for lung cancer,nicotine dependence,f17.210. TECHNIQUE: Imaging Protocol: Low Dose Technique CONTRAST MATERIAL: None COMPARISON: CT CT CHEST/ABD/PEL W from 06/27/2023 FINDINGS: CHEST: LUNGS: There is an unchanged noncalcified nodule measuring 6-7 mm in the right middle lobe which appe ars unchanged from CT scan of 06/27/2023.. There is a tiny nodule laterally in the right upper lobe measuring 2 millimeters which is also unchanged. In the opposite-left lung there is a nodular densit y in the left lower lobe measuring 7 mm, unchanged from 06/27/2023. Pleural base nodular density in the lateral basal segment of the left lower lobe is also unchanged. There is some atelectasis in the anterior basal segment of the left lower lobe. Previously present infiltrate in the lingular segmen t of the left lung is cleared. MEDIASTINUM: There is no obvious hilar nor mediastinal adenopathy. CARDIAC: Heart size normal. Very mild thickening of the anterior pericardium is unchanged with maxim um thickness 3 millimeters. Probably representing small pericardial effusion. Thecaliber of the tho racic aorta is within normal limits. OTHER: OSSEOUS: No significant osseous lesions.No fractures.. IMPRESSION: 1. Stable appearance of bilateral noncalcified nodules without significant change in these nodules wh en compared to CT scan of June 2023. 2. The previously present left lung lingular infiltrate has resolved. There is some atelectasis now evident in the anterior basal segment of the left lower lobe. There are no pleural effusions. 3. Lung RADS Cat 2 - Benign Appearance / Behavior: Nodules with a very low likelihood of becoming a c linically active cancer due to size or lack of growth Lung-RADS 1.0 CATEGORIES: Category 0 - Prior chest CT exam(s) being located for comparison. Category 1 - Annual screening in 12 months. No nodules or definitely benign nodules. Category 2 - Annual screening in 12 months. Benign appearance. Nodules with low likelihood of becomin g active cancer. Category 3 - 6-month follow-up. Probably benign. Short-term follow-up suggested. Nodules with low lik elihood of becoming active cancer. Category 4A - 3-month follow-up and CT/PET if >8 mm in size. Suspicious finding. Findings which requi re additional testing. Category 4B - Findings which require additional testing and tissue sampling. Category 4X - Category 3 or 4 nodules with additional features or imaging findings that increases the suspicion of malignancy. Modifier S- Potentially clinically significant findings (non lung cancer) RADIATION DOSE DELIVERED: 29.46mGy.cm Total DLP DATA REPOSITORY: All CT scans at this facility are submitted to the National Radiology Data Registry (NRDR) Dose Index Registry (DIR) with the [employer] (ACR). RADIATION OPTIMIZATION: All CT scans at this facility use at least one of these dose optimization te chniques: automated exposure control; mA and/or kV adjustment per patient size (includes targeted exa ms where dose is matched to clinical indication); or iterative reconstruction.
== END 2024-07-17 01:34 ==
LOC: DI 01:14
PROVIDERS: PCP Student in an Organized Health Care Education/Training Program; Visit Provider Physician Assistant Surgical
DX: Z12.2 Encounter for screening for malignant neoplasm of respiratory organs (principal); F17.210 Nicotine dependence, cigarettes, uncomplicated; R91.8 Other nonspecific abnormal finding of lung field
CPT/HCPCS: 71271

== ENCOUNTER 2024-07-17 01:22 | Outpatient (CLI) | payer MEDICARE, SELFPAY ==
--- NOTE | 2024-07-17 | DI.DEXA_ITS ---
Exam(s) XR DEXA BONE DENSITY W/WO ROBYN EXAM: XR DEXA BONE DENSITY W/WO ROBYN CLINICAL HISTORY: Asymptomatic menopausal state, Z78.0, screening for osteoporosis TECHNIQUE: Routine DEXA evaluation of the lumbar spine, hip, or forearm. COMPARISON: No exams were available for comparison FINDINGS: Performed on a Hologic unit. Lateral image: No compression fracture evident. Lumbar Spine total T-score: -1.6. This is osteopenia range. Hip total T-score:-1.7. This is osteopenia range. Independent reading at the level of the femoral neck yields T-score of -1.4. Also osteopenia range. Forearm total T-score: -2.1 which is also in the osteopenia range. IMPRESSION: Bone mineral density measures in the osteopenia range. Fracture risk is moderate. Note: Any spine fracture indicates 5x risk for subsequent spine fracture and 2x risk for subsequent h ip fracture. World Health Organization criteria for BMD interpretation classify patients: Normal...... T- Score at or above -1.0 Osteopenic... T- Score between -1.0 and -2.5 Osteoporosis... T-Score at or below -2.5
== END 2024-07-17 01:42 ==
LOC: DI 01:22
PROVIDERS: PCP Student in an Organized Health Care Education/Training Program; Visit Provider Student in an Organized Health Care Education/Training Program
DX: Z12.2 Encounter for screening for malignant neoplasm of respiratory organs (principal); F17.210 Nicotine dependence, cigarettes, uncomplicated; R91.8 Other nonspecific abnormal finding of lung field
CPT/HCPCS: 77080